=== PATIENT | male | born 1945 | race Caucasian/White ===

== ENCOUNTER → 2018-04-12 | Outpatient (CLI) | payer MEDICARE ==
--- NOTE | 2018-04-13 07:33 | MR ---
EXAMINATION TYPE: MR shoulder LT wo con DATE OF EXAM: 04/12/2018 COMPARISON: None HISTORY: 73-year-old male shoulder pain, limited ROM x 2 years TECHNIQUE: Multiplanar, multisequence imaging of the left shoulder is performed without contrast. FINDINGS: Split tears within the extracapsular portion of the long head biceps tendon with tenosynovitis. Intra capsular portion is not seen and is suspected to be torn. The subscapularis tendon is very diminutive with some intact inferior fibers seen. A sizable tear is suspected with mild fatty streaks within the muscle belly and tracking fluid along the myotendinous j unction. Severe degenerative joint space narrowing and marginal spurring with capsular hypertrophy at the acro mial clavicular joint. There is impingement on the underlying myotendinous junction of the supraspina tus. There is diffuse heterogeneity and thickening of the supraspinatus and infraspinatus tendons with a s hallow anterior bursal sided tear of the supraspinatus measuring 1 cm long and 1.2 cm AP. Areas of in trasubstance tearing within the infraspinatus tendon. No high-grade partial or full-thickness tear. No atrophy of either supraspinatus or infraspinatus muscle bellies. There is moderate fluid within the subacromial/subdeltoid bursa especially below the distal clavicle. There is a calcific focus measuring 8 mm along the anterior subdeltoid bursa, coronal image 8. Moderate joint effusion with degenerative spurring in mild irregular cartilage loss. The superior labrum is diffusely degenerative and torn. No Hill-Sachs deformity or os acromiale. No suspicious bone marrow replacement. IMPRESSION: 1. Marked diffuse rotator cuff tendinosis. Suspect that the majority of the subscapularis tendon is t orn. Mild fatty infiltration of its muscle belly. 2. Shallow bursal sided tear measuring 1.0 x 1.2 cm of the far anterior supraspinatus tendon. Additio nal areas of intrasubstance tearing within the infraspinatus tendon. No high-grade partial or full-th ickness tear. 3. An 8 mm calcification in the anterior subdeltoid bursa with moderate bursitis. Correlate for possi ble calcific bursitis. 4. The intracapsular portion of the long head biceps tendon is not seen and is likely torn. Some of t he extracapsular portion is seen with split tears and associated tenosynovitis. 5. Severe AC joint OA with impingement onto the underlying cuff. 6. Diffusely degenerative and torn superior labrum with mild GH joint OA.
== END | disposition home or self-care (01) ==
LOC: RADMRIMAIN 12:23
PROVIDERS: ATTEND Orthopaedic Surgery
DX: M67.814 Other specified disorders of tendon, left shoulder (principal); M75.102 Unspecified rotator cuff tear or rupture of left shoulder, not specified as traumatic; M19.012 Primary osteoarthritis, left shoulder; M25.812 Other specified joint disorders, left shoulder; M65.812 Other synovitis and tenosynovitis, left shoulder; S43.402A Unspecified sprain of left shoulder joint, initial encounter

== ENCOUNTER → 2018-04-12 | Outpatient (CLI) | payer MEDICARE ==
[2018-04-12 14:06] LABS: HGB 13.6 gm/dL (13.0-17.5); MCH 31.8 pg (25.0-35.0); MCHC 33.2 g/dL (31.0-37.0); MCV 95.6 fL (80.0-100.0); Mean Platelet Volume 6.7; Platelet Count 173 k/uL (150-450); RBC 4.29 m/uL (4.30-5.90); RDW 13.9 % (11.5-15.5); WBC 8.2 k/uL (3.8-10.6)
[2018-04-12 14:20] LABS: Potassium 5.8 mmol/L (3.5-5.1)
== END ==
LOC: LABMAIN 12:35
PROVIDERS: ATTEND Internal Medicine Interventional Cardiology
DX: Z01.812 Encounter for preprocedural laboratory examination (principal); I10 Essential (primary) hypertension; E78.1 Pure hyperglyceridemia; I25.10 Atherosclerotic heart disease of native coronary artery without angina pectoris
CPT/HCPCS: 36415; 80051; 82565; 84520; 85027

== ENCOUNTER → 2018-04-16 | Outpatient (CLI) | payer MEDICARE ==
[2018-04-16 18:01] LABS: Anion Gap 1.9 mmol/L (4.00-12.00); Carbon Dioxide 30.1 mmol/L (21.6-31.8); Potassium 5.1 mmol/L (3.5-5.5)
== END | disposition home or self-care (01) ==
LOC: LABWHC1 09:16
PROVIDERS: ATTEND Internal Medicine Interventional Cardiology
DX: E87.5 Hyperkalemia (principal)
CPT/HCPCS: 36415; 80051; 82565; 84520

== ENCOUNTER → 2018-10-07 | Outpatient (CLI) | payer MEDICARE ==
[2018-10-07 13:29] LABS: HCT 43.9 % (39.0-53.0); HGB 14.3 gm/dL (13.0-17.5); MCH 30.8 pg (25.0-35.0); MCHC 32.6 g/dL (31.0-37.0); MCV 94.5 fL (80.0-100.0); Mean Platelet Volume 6.7; Platelet Count 179 k/uL (150-450); RBC 4.64 m/uL (4.30-5.90); RDW 13.5 % (11.5-15.5); WBC 7.9 k/uL (3.8-10.6)
== END ==
LOC: LABWHC1 12:33
PROVIDERS: ATTEND Internal Medicine Interventional Cardiology
DX: Z01.812 Encounter for preprocedural laboratory examination (principal); I10 Essential (primary) hypertension; I25.118 Atherosclerotic heart disease of native coronary artery with other forms of angina pectoris
CPT/HCPCS: 36415; 80051; 82565; 84520; 85027

== ENCOUNTER 2018-10-13 10:47 | Day surgery (SDC) | payer MEDICARE ==
[~2018-10-13 10:47] MED LIST: ALPRAZolam 0.25 MG TAB PO PRN; ALPRAZolam 0.5 MG TAB PO PRN; ASPIRIN 325 MG TAB PO ONE; ATORVASTATIN 80 MG TAB PO ONE; NITROGLYCERIN SL TABS 0.4 MG TAB SUBLINGUAL PRN; SODIUM CHLORIDE 0.9% 1,000 ML in EMPTY BAG 1 BAG IV ONE
[2018-10-13 11:53] LABS: INR 1.3 (<1.2)
[2018-10-13] MEDS ORDERED: LIDOCAINE 1% INJ 10MG/ML (20 ML MDV) ONE (16:32)
[2018-10-13] MEDS ORDERED: HEPARIN SODIUM 1,000 UN/ML (10ML VL) ONE (16:33)
[2018-10-13] MEDS ORDERED: MIDAZOLAM (PF) 2 MG/2 ML VIAL IV ONE ×2 (17:27→17:33)
[2018-10-13] MEDS ORDERED: LIDOCAINE 1% INJ 10MG/ML (20 ML MDV) SQ ONE (17:31)
[2018-10-13] MEDS ORDERED: BIVALIRUDIN BOLUS 250 MG/50 ML IV ONE (17:51)
[2018-10-13] MEDS ORDERED: BIVALIRUDIN 250 MG in SODIUM CHLORIDE 0.9% 50 ML IV ONE (17:52)
[2018-10-13] MEDS ORDERED: ADENOSINE 180 MG in SODIUM CHLORIDE 0.9% 30 ML IVP ONE (17:56)
[2018-10-13] MEDS ORDERED: IOPAMIDOL-370 50ML BTL INJ ONE (18:02)
[2018-10-13] MEDS ORDERED: IOPAMIDOL-370 100ML BTL INJ ONE ×2 (18:02)
[2018-10-13] MEDS ORDERED: RX INFO: IV CONTRAST WAS GIVEN 1 EACH MISC MISCELLANE PRN (18:13)
[2018-10-13] MEDS ORDERED: SODIUM CHLORIDE 0.9% 1,000 ML IV SCH (18:15)
--- NOTE | 2018-10-13 18:48 | PTCA ---
PERCUTANEOUSTRANS CORORONARY ANGIOGRAPHY DATE OF SERVICE: October 13, 2018 PERFORMING PHYSICIAN: Juve Silva MD, hand brim ironer. PROCEDURE PERFORMED: 1. Selective right and left coronary angiogram. 2. Left heart catheterization. 3. Fractional flow reserve FFR of the left circumflex. INDICATION: This is a pleasant 73-year-old gentleman with history of coronary artery disease and prior stenting of the left anterior descending artery,was experiencing symptoms of chest discomfort. He is known to have intermediate disease involving the left circumflex. He was brought today to undergo a heart catheterization and FFR of the left circumflex. APPROACH: Right common femoral artery. COMPLICATION: None. LEVEL OF SEDATION: Moderate with sedation length of 34 minutes. PROCEDURE DESCRIPTION: After obtaining an informed consent, the patient was brought to cardiac lift slab operator. The right common femoral artery was cannulated using micropuncture technique and a micropuncture wire passed easily then I placed a 6-Polish sheath in the right common femoral artery. After that I did selective right and left coronary angiogram using JR4 and JL4 catheters. Left heart catheterization was performed using 6-Polish pigtail catheter. I did after that fractional flow reserve FFR of the left circumflex please see a separate paragraph for that. SELECTIVE CORONARY ANGIOGRAM: 1. The right coronary artery is a large caliber vessel. It is a dominant vessel and appeared to be angiographically normal. It distally bifurcates into PDA and PLV branches both appeared to be angiographically normal. 2. The left main is a large caliber vessel with mild disease only, appeared to be in the range of 20%-30%. It bifurcates into left circumflex, ramus intermedius, and left anterior descending artery. 3. The left circumflex is a large caliber vessel. It is a codominant vessel with the proximal circumflex and mid circumflex are angiographically normal. The circumflex distally bifurcates into PDA and PLV branches. The PDA branch of the left circ has a lesion appeared to be in the range of 60%. I did FFR that came into be nonischemic at 0.93. 4. The LAD. The LAD in the proximal portion is stented and the stent is patent. The mid LAD is normal. The LAD distally appeared to be normal. The LAD gives rise into a large diagonal branch which seems to be angiographically normal. HEMODYNAMICS: The left ventricular end-diastolic pressure was 12 mmHg without gradient across the aortic valve. FFR of the left circumflex: Anticoagulation was initiated using Angiomax. After zeroing the Doppler wire and equalizing between the Doppler wire and the guiding catheter which was JL4 guide, I did FFR per IV adenosine infusion and the FFR came to be at 0.94. CONCLUSION: 1. Intermediate to severe disease involving the left circumflex. FFR was applied and carried to be nonischemic at 0.94. 2. Patent stent in the proximal left anterior descending artery. POSTPROCEDURE MANAGEMENT: Medical treatment and follow up with the patient. MMODL / IJN: [id number] /
[2018-10-13 19:03] VITALS: BMI 44.6
[2018-10-13] MEDS ORDERED: ACETAMINOPHEN TAB 325 MG TAB PO PRN (20:10)
[2018-10-13] MEDS ORDERED: FLUoxetine HCL 10 MG CAP PO PRN (20:26)
[2018-10-13] MEDS ORDERED: HYDROcodone/APAP 10-325MG 1 EACH TAB PO PRN (20:26)
[2018-10-13] MEDS ORDERED: NITROGLYCERIN SL TABS 0.4 MG TAB SUBLINGUAL PRN (20:26)
[2018-10-13] MEDS ORDERED: WARFARIN 5 MG TAB PO SCH (20:30)
[2018-10-13] MEDS ORDERED: METOPROLOL SUCCINATE (ER) 25 MG TAB.ER.24H PO SCH (21:00)
[2018-10-13] MEDS ORDERED: TIMOLOL 0.5% OPHTH DROPS 5 ML BTL BOTH EYES SCH (21:00)
[2018-10-13] MEDS ORDERED: ATORVASTATIN 20 MG TAB PO SCH (21:00)
[2018-10-13] MEDS ORDERED: [UNRECOGNIZED DRUG - OTHER] PO SCH (21:00)
[2018-10-13] MEDS ORDERED: BRIMONIDINE TARTRATE 0.2% DROPS 5 ML BTL BOTH EYES SCH (21:00)
[2018-10-14 07:49] VITALS: BP 128/74; PULSE 53; RESP 18; TEMP 98.2
[2018-10-14] MEDS ORDERED: MELOXICAM 7.5 MG TAB PO SCH (09:00)
[2018-10-14] MEDS ORDERED: OMEGA 3 1000MG PO SCH (09:00)
[2018-10-14] MEDS ORDERED: ASCORBIC ACID 500 MG TAB PO SCH (09:00)
[2018-10-14] MEDS ORDERED: LISINOPRIL 20 MG TAB PO SCH (09:00)
[2018-10-14] MEDS ORDERED: FLUoxetine HCL 20 MG CAP PO SCH (09:00)
[2018-10-14] MEDS ORDERED: VITAMIN B COMPLEX PO SCH (09:00)
[2018-10-14] MEDS ORDERED: ISOSORBIDE MONONITRATE ER 60 MG TAB.ER.24H PO SCH (09:00)
[2018-10-14] MEDS ORDERED: CALCIUM CARB-VIT D 250MG-125UN 1 EACH TAB PO SCH (09:00)
[2018-10-14] MEDS ORDERED: TURMERIC PO SCH (09:00)
[2018-10-14] MEDS ORDERED: MULTIVITAMINS, THERA 1 EACH TAB PO SCH (09:00)
[2018-10-14] MEDS ORDERED: ASPIRIN 81 MG PO SCH (09:00)
--- NOTE | 2018-10-15 18:05 | DS ---
DISCHARGE SUMMARY ADMISSION DATE: October 13, 2018. DISCHARGE DATE: October 14, 2018 BRIEF HISTORY: This is a pleasant 73-year-old gentleman who was experiencing chest discomfort and underwent a heart catheterization and that revealed intermediate disease involving the left circumflex where an FFR was performed and came into be nonischemic. I kept the patient overnight for observation. He was discharged home the following day. He was doing good and he was asymptomatic. MMODL / IJN: [id number] /
[2018-10-19] MEDS ORDERED: WARFARIN 2.5 MG TAB PO SCH (18:00)
== END 2018-10-14 10:15 | disposition home or self-care (01) ==
LOC: CATHCVL 10:47 → 1SOBS 18:13 → CATHCVL 10-14 10:15
PROVIDERS: ATTEND Internal Medicine Interventional Cardiology
DX: I25.110 Atherosclerotic heart disease of native coronary artery with unstable angina pectoris (principal); I10 Essential (primary) hypertension; E78.5 Hyperlipidemia, unspecified; E78.00 Pure hypercholesterolemia, unspecified; E66.01 Morbid (severe) obesity due to excess calories; Z68.42 Body mass index [BMI] 45.0-49.9, adult; Z72.0 Tobacco use; Z86.718 Personal history of other venous thrombosis and embolism; Z79.899 Other long term (current) drug therapy; Z95.5 Presence of coronary angioplasty implant and graft; Z79.82 Long term (current) use of aspirin; Z79.01 Long term (current) use of anticoagulants; Z79.1 Long term (current) use of non-steroidal anti-inflammatories (NSAID)
CPT/HCPCS: 93571; 93458; 85610; C1760; C1887; C1894; C1769 ×2; J2001; J0583; J0153; Q9967 ×2; J2250

== ENCOUNTER → 2019-01-07 | Outpatient (CLI) | payer MEDICARE ==
[2019-01-07 13:00] LABS: African American GFR (CKD) >90 (>60 ml/min/1.73 sqM); Blood Urea Nitrogen 19 mg/dL (9-20)
--- NOTE | 2019-01-07 14:26 | CT ---
EXAMINATION TYPE: CT abdomen pelvis w con DATE OF EXAM: 01/07/2019 COMPARISON: None HISTORY: Hematuria CONTRAST: CT scan of the abdomen and pelvis is performed with Oral Contrast and with IV Contrast, patient injec suyapa with 100 mL of Isovue 300. FINDINGS: LUNG BASES-: No visible nodule. No infiltrate. LIVER/GB: No calcified gallstones. No space occupying hepatic lesion. Biliary tree is of normal ca liber. PANCREAS: No inflammation. No distinct mass. SPLEEN: No splenic enlargement. No lesion seen. ADRENALS: No nodule. No thickening. KIDNEYS/BLADDER: No hydronephrosis. No nephrolithiasis. No distinct renal mass. Urinary bladder g rossly unremarkable. BOWEL: Normal appendix. Normal bowel caliber. No inflammation. GENITAL ORGANS: No gross abnormality. LYMPH NODES: No greater than 1cm abdominal or pelvic lymph nodes are appreciated. AORTA: No significant abnormality. OSSEOUS STRUCTURES: Severe multilevel degenerative disc space narrowing with vacuum disc noted. OTHER: No significant additional abnormality is seen. IVC filter is noted to be in place. IMPRESSION: 1. No significant abnormality to account for the patient's symptoms of hematuria. Correlate clinicall y.
== END | disposition home or self-care (01) ==
LOC: RADCTMAIN 12:02
PROVIDERS: ATTEND Urology
DX: R31.9 Hematuria, unspecified (principal)
CPT/HCPCS: 82565; 84520; 74177; 36415; Q9967

== ENCOUNTER → 2021-04-26 | Outpatient (CLI) | payer MEDICARE ==
[2021-04-26 10:14] LABS: Basophils # (A) 0.1 k/uL (0-0.2); Basophils % (A) 1 %; Eosinophils # (A) 0.3 k/uL (0-0.7); Eosinophils % (A) 4 %; HCT 44.6 % (39.0-53.0); HGB 14.8 gm/dL (13.0-17.5); Lymphocytes # (A) 2.1 k/uL (1.0-4.8); Lymphocytes % (A) 27 %; MCH 32.2 pg (25.0-35.0); MCHC 33.1 g/dL (31.0-37.0); MCV 97.3 fL (80.0-100.0); Mean Platelet Volume 7.4; Monocytes # (A) 0.5 k/uL (0-1.0); Monocytes % (A) 7 %; Neutrophils # (A) 4.5 k/uL (1.3-7.7); Neutrophils % (A) 58 %; Platelet Count 165 k/uL (150-450); RBC 4.59 m/uL (4.30-5.90); RDW 12.5 % (11.5-15.5); WBC 7.7 k/uL (3.8-10.6)
[2021-04-26 10:24] LABS: INR 2.9 (<1.2); Partial Thromboplastin Time 35.2 sec (22.0-30.0); Prothrombin Time 27.7 sec (9.0-12.0)
[2021-04-26 10:30] LABS: ALT 25 U/L (4-49); AST 36 U/L (17-59); African American GFR (CKD) >90 (>60 ml/min/1.73 sqM); Albumin 3.9 g/dL (3.5-5.0); Alkaline Phosphatase 71 U/L (38-126); Anion Gap 5 mmol/L; Blood Urea Nitrogen 20 mg/dL (9-20); Calcium 9.7 mg/dL (8.4-10.2); Carbon Dioxide 28 mmol/L (22-30); Chloride 104 mmol/L (98-107); Glucose 104 mg/dL (74-99); Non-African American GFR(CKD) 78 (>60 ml/min/1.73 sqM); Potassium 5.6 mmol/L (3.5-5.1); Sodium 137 mmol/L (137-145); Total Bilirubin 0.7 mg/dL (0.2-1.3); Total Protein 6.6 g/dL (6.3-8.2)
[2021-04-26 10:34] LABS: Appearance,Urine Clear (Clear); Bilirubin,Urine Negative (Negative); Blood,Urine Negative (Negative); Color,Urine Yellow; Glucose,Urine (UA) Negative (Negative); Ketones,Urine Negative (Negative); Leukocyte Esterase,Urine Negative (Negative); Nitrite,Urine Negative (Negative); Protein,Urine Negative (Negative); Specific Gravity,Urine 1.025 (1.001-1.035)
== END | disposition home or self-care (01) ==
LOC: LABPAT 09:37
PROVIDERS: ATTEND Orthopaedic Surgery
DX: Z01.812 Encounter for preprocedural laboratory examination (principal)
CPT/HCPCS: 80053; 81003; 85025; 85610; 85730; 87070

== ENCOUNTER 2021-05-22 07:41 | Observation (INO) | payer MEDICARE ==
[2021-05-15 13:07] VITALS: BMI 43.9
[~2021-05-22 07:41] MED LIST changes: +ACETAMINOPHEN TAB 500 MG TAB PO PRN; -ALPRAZolam 0.25 MG TAB PO PRN; -ALPRAZolam 0.5 MG TAB PO PRN; -ASPIRIN 325 MG TAB PO ONE; -ATORVASTATIN 80 MG TAB PO ONE; +DEXAMETHASONE SOD PHOSPHATE 4 MG/ML 1 ML VIAL IV ONE; +GABAPENTIN 300 MG CAP PO PRN; +LIDOCAINE 1% (10MG/ML) FOR IV START INTRADERMA PRN; +MIDAZOLAM 2 MG/2 ML VIAL IV PRN; -NITROGLYCERIN SL TABS 0.4 MG TAB SUBLINGUAL PRN; +ONDANSETRON 4 MG/2 ML VIAL IVP ONE; -SODIUM CHLORIDE 0.9% 1,000 ML in EMPTY BAG 1 BAG IV ONE; +TRANEXAMIC ACID 1,000 MG in SODIUM CHLORIDE 0.9% 100 ML IVPB PRN; +ceFAZolin 3 GM in SODIUM CHLORIDE 0.9% 100 ML IVPB PRN
[2021-05-22] MEDS: LACTATED RINGERS 1,000 ML IV SCH (08:08)
[2021-05-22] MEDS ORDERED: HYDROmorphone 0.5 MG/0.5 ML SYRINGE IVP PRN ×2 (08:36)
[2021-05-22] MEDS ORDERED: HYDROmorphone 0.2 MG/1 ML SYRINGE IVP PRN (08:36)
[2021-05-22] MEDS ORDERED: ONDANSETRON 4 MG/2 ML VIAL IVP PRN (08:36)
[2021-05-22] MEDS ORDERED: NA PHOS,M-B/NA PHOS,DI-BA 133 ML ENEMA RECTAL PRN (08:36)
[2021-05-22] MEDS ORDERED: MAGNESIUM HYDROXIDE 2,400 MG/10 ML CUP PO PRN (08:36)
[2021-05-22] MEDS ORDERED: NALOXONE 0.4 MG/ML 1 ML VIAL IV PRN (08:36)
[2021-05-22] MEDS ORDERED: bisacodyL 10 MG SUPP RECTAL PRN (08:36)
[2021-05-22] MEDS ORDERED: .fentaNYL (PF) 50 MCG/ML 2 ML AMP IVP ONE (08:40)
[2021-05-22] MEDS ORDERED: MIDAZOLAM 2 MG/2 ML VIAL IVP ONE (08:40)
[2021-05-22] MEDS ORDERED: SUCCINYLCHOLINE CHLORIDE 100 MG/5 ML SYR IV ONE (09:01)
[2021-05-22] MEDS ORDERED: ROPIVACAINE 5 MG/ML 30 ML VIAL ONE (09:01)
[2021-05-22] MEDS ORDERED: PROPOFOL 10 MG/ML 20 ML VIAL IV ONE (09:01)
[2021-05-22] MEDS ORDERED: LIDOCAINE 1% INJ 10MG/ML (20 ML MDV) ONE (09:01)
[2021-05-22] MEDS ORDERED: TRANEXAMIC ACID 1,000 MG/10 ML VIAL ONE (09:01)
[2021-05-22] MEDS ORDERED: ePHEDrine 50 MG/ML 1 ML AMP ONE (09:01)
[2021-05-22] MEDS ORDERED: SODIUM CHLORIDE 0.9% (PF) 10 ML VIAL ONE (09:01)
[2021-05-22] MEDS ORDERED: MIDAZOLAM 2 MG/2 ML VIAL ONE (09:01)
[2021-05-22] MEDS ORDERED: SODIUM CHLORIDE 0.9% 100 ML BAG ONE (09:01)
[2021-05-22] MEDS ORDERED: .fentaNYL (PF) 50 MCG/ML 2 ML AMP ONE (09:01)
[2021-05-22] MEDS ORDERED: ceFAZolin 1,000 MG in SODIUM CHLORIDE 0.9% 1,000 ML IRRIGATION ONE (09:06)
--- NOTE | 2021-05-22 09:49 | P.ANPRN ---
Procedure Note - Anesthesia - Nerve Block Performed Right Adductor Canal Time Out Performed: Yes (08:39) Date of Procedure: 05/22/21 Procedure Start Time: 39 Procedure Stop Time: : Location of Patient: PreOp Indication: Acute Post-Operative Pain, Requested by Surgeon (Dr Monique Meeks) Sedation Type: Sedate with meaningful contact maintained Preparation: Sterile Prep, Sterile Dressing Position: Supine Catheter: Indwelling Needle Types: Pajunk Needle Gauge: 21 Ultrasound used to visualize needle placement: Yes Ultrasound used to observe medication spread: Yes Injectate: 0.5% Ropivacaine (see comment for volume) (15cc) Blood Aspirated: No Pain Paresthesia on Injection Noted: No Resistance on Injection: Normal Image Stored and Saved: Yes Events: Uneventful and Well Tolerated
--- NOTE | 2021-05-22 09:50 | P.ANPRN ---
Procedure Note - Anesthesia - Nerve Block Performed Right iPack Time Out Performed: Yes Date of Procedure: 05/22/21 Procedure Start Time: 08:52 Procedure Stop Time: 09:00 Location of Patient: PreOp Indication: Acute Post-Operative Pain, Requested by Surgeon (Dr Monique Meeks) Sedation Type: Sedate with meaningful contact maintained Preparation: Sterile Prep Position: Supine Catheter: None Needle Types: Pajunk Needle Gauge: 21 Ultrasound used to visualize needle placement: Yes Ultrasound used to observe medication spread: Yes Injectate: 0.5% Ropivacaine (see comment for volume) (15cc + 5 cc PF Normal saline) Blood Aspirated: No Pain Paresthesia on Injection Noted: No Resistance on Injection: Normal Image Stored and Saved: Yes Events: Uneventful and Well Tolerated
[2021-05-22] MEDS ORDERED: LACTATED RINGERS 500 ML IV ONE (09:55)
--- NOTE | 2021-05-22 10:58 | P.OP ---
Date of Procedure: 05/22/21 Preoperative Diagnosis: Severe Osteoarthritis right knee Postoperative Diagnosis: Severe osteoarthritis right knee Procedure(s) Performed: Right total knee arthroplasty Implants: Guard[employer]hew Cruciate Retaining Journey II CR Oxinium Femoral Component size 7, right Guard[employer] Journey Nonporous Tibial Baseplate size 6, right [employer] Journey II DEEP DISHED, XLPE Articular Insert, 9 mm, size 5-6 [employer]hew Mylene II Resurfacing Patellar Component, Oval, 35 mm All components were cemented using Palacose R bone cement. The articulation is Oxinium on polyethylene. Anesthesia: GETA Surgeon: Alan Meeks Global Human Resources Director #1: Mallory Mac Estimated Blood Loss (ml): 100 Pathology: other (Bone and cartilage) Condition: stable Disposition: PACU Indications for Procedure: After failure of conservative treatment we discussed the surgical and nonsurgical treatment options at length. Patient wishes to proceed with a total knee arthroplasty. Complications specific to this procedure were discussed at length, including but not limited to infection, bleeding, stiffness, and nerve injury. Covid-19 was also discussed at length with the patient, and they are aware of the current policies and procedures. The patient was given the option of delaying surgery, but they elect to proceed knowing these risks. Patient is aware of all these complications and informed consent was obtained Operative Findings: The operative findings are consistent with severe osteoarthritis of the right knee Description of Procedure: Patient was seen in the preoperative area and the consent was reviewed and the operative site was marked with a skin marker. The patient verified the procedure and the operative site. An adductor canal pain catheter and an iPACK block was placed by anesthesia in the preoperative area. The patient was then brought to the operating room and given preoperative antibiotics intravenously. A gram of transexamic acid was given intravenously. A general anesthetic was administered by the anesthesia department. A tourniquet was placed on the upper thigh and the lower extremity was prepped with chlorhexidine and draped in usual sterile fashion. A universal timeout was then performed which confirmed the patient's name, surgical site, ALLERGIES, and consent. The lower extremity was then exsanguinated and tourniquet was inflated to 250 mmHg. A standard anterior midline approach to the knee was performed. The skin and subcutaneous tissue were sharply dissected down to the patellar tendon. A medial parapatellar arthrotomy was then performed. The knee was then extended, the patellar was everted, and the knee was again flexed. The infra-patellar fat pad was removed in order to enhance exposure. The anterior horns of both menisci were excised, and a release was performed to the posterior medial aspect of the knee. On gross visual inspection, there was complete loss of articular cartilage in the medial and patellofemoral joint spaces. There was also significant cartilage damage in the lateral compartment. There were multiple periarticular osteophytes globally about the knee which were then removed with a Ronguer. The femoral canal was then opened with the 9.5 mm intramedullary drill. The 8 mm intramedullary ag was then inserted into the femoral canal with the distal femoral cutting guide set for 5 of valgus. The distal femoral cutting block was then pinned in place. The intramedullary ag was then removed, and the distal femur was then cut. The cutting block was then removed and the cut was checked for symmetry. The resected bone was then measured to confirm the appropriate distal femoral resection. Next, the sizing guide was then placed and set for 3 external rotation based off of the epicondylar axis and Whitesides line. Pins were then placed and the drill holes, and the femur was sized with the sizing stylus. The pins were then removed, and the sizing guide was then removed. The spikes of the femoral block was then placed into the predrilled holes, and malleted into place. Two 45 mm pins were then placed into the fixation holes on the cutting block. An priyanka wing was then used to ensure there would be no notching with the anterior cut. The anterior condyles were cut without notching. The anterior chord cut was then performed, followed by the posterior cut, posterior chamfer cut, and the anterior chamfer cut. The collateral ligaments were protected during the entire process. The cutting block was then removed. Any remaining bone and osteophytes were removed from the femur with a Rominger. The femoral canal was plugged with autologous bone. Attention was then directed to the tibia. The remaining ACL was removed with a Ronguer, and the tibia was then gently subluxed forward with a large bent knee retractor. Any remaining menisci were excised. The posterior lateral corner was cauterized in order to coagulate the lateral geniculate artery. The extra medullary tibial cutting guide was then placed, set for the appropriate rotation, slope, and depth of resection. The proximal tibia cutting guide was then pinned in place. Proximal tibia was then cut and sized. The femoral trial was placed. A narrow saw blade was then used to remove the anterior intracondylar femoral bone. The CR notch trial was then placed. The tibial trial was placed with the appropriate-sized insert. The knee was able to fully extend and flex to 130 and was stable throughout all range of motion. The knee was then extended and the patella was everted. Patella was then measured, and then using an osteotomy guide, the patella was cut at the appropriate level. The patella was then measured and drilled and the patella trial was then placed. The knee was then taken through range of motion with the patella trial and the patella tracked normally using the no thumbs technique.. The knee was then extended patella trial was then removed and the patella was everted. Knee was then flexed and lug holes were drilled through the femoral trial and the femoral trial was then removed. The tibial was then re-exposed, and the tibial broach guide was then pinned in place after it was set for the appropriate rotation to allow for the most coverage without overhang. The tibia was then reamed and broached. The cut surfaces of bone were then irrigated with pulsatile lavage. The knee was also irrigated with Irrisept solution. The components were then opened, the cement was mixed, and the components were then cemented in place. The cement was allowed to harden with the knee in full extension. After the cemented hardened. The tourniquet was released, and hemostasis was obtained. A second gram of transexamic acid was given intravenously. The knee was again irrigated. The knee was again taken through range of motion and found to be stable throughout all range of motion of 0-130, and the patella tracked normally. The fascia was then closed with 0 Vicryl followed by #2 strata fix suture. The subcutaneous tissue was closed with 3-0 Vicryl and 3-0 strata fix. Exofin glue was used for the skin and placed with the knee in flexion. After the glue had dried, and Optafoam silver impregnated dressing was applied. The patient was then transferred to recovery room in stable condition. The human services assistant IRISH Palmer was required due the complexity surgery and the need for a skilled surgical orderly. She assisted in positioning, draping, retraction, and closure of the wound.
[2021-05-22] MEDS ORDERED: ROPIVACAINE 0.2%-NS ON-Q PUMP 2 MG/ML EACH MISCELLANE ONE ×2 (11:04)
[2021-05-22] MEDS: HYDROmorphone 0.5 MG/0.5 ML SYRINGE IVP PRN ×4 (11:04→14:57)
[2021-05-22] MEDS ORDERED: diphenhydrAMINE 50 MG/ML 1 ML VIAL ONE (11:21)
[2021-05-22] MEDS ORDERED: diphenhydrAMINE 50 MG/ML 1 ML VIAL IVP ONE (11:22)
--- NOTE | 2021-05-22 11:34 | XR ---
EXAMINATION TYPE: XR knee limited RT DATE OF EXAM: 05/22/2021 CLINICAL HISTORY: Postoperative evaluation Two views of the right knee are submitted. Identified are changes of total knee arthroplasty with femoral and tibial components appearing well seated. Postsurgical soft tissue changes are noted. Alignment is anatomic.
[2021-05-22] MEDS: HYDROcodone/APAP 7.5-325MG 1 EACH TAB PO PRN ×2 (15:48→19:35)
[2021-05-22] MEDS: ceFAZolin 3 GM in SODIUM CHLORIDE 0.9% 100 ML IVPB SCH (16:39)
[2021-05-22] MEDS: SODIUM CHLORIDE 0.9% 1,000 ML IV SCH (17:22)
[2021-05-22] MEDS ORDERED: WARFARIN 5 MG TAB PO ONE (18:00)
[2021-05-22] MEDS: SENNOSIDES-DOCUSATE SODIUM 1 EACH TAB PO SCH (20:39)
[2021-05-23] MEDS: SODIUM CHLORIDE 0.9% 1,000 ML IV SCH ×2 (01:11→14:36)
[2021-05-23] MEDS: ceFAZolin 3 GM in SODIUM CHLORIDE 0.9% 100 ML IVPB SCH (01:13)
[2021-05-23] MEDS: HYDROcodone/APAP 7.5-325MG 1 EACH TAB PO PRN ×5 (01:19→20:51)
--- NOTE | 2021-05-23 07:10 | P.PN ---
Progress Note - Text The patient is status post right adductor canal catheter placement. The catheter was placed for postoperative pain control, status post total right knee arthroplasty. Ropivacaine 0.2% is infusing at[ 8] mLs per hour. The patient has no complaints of[ right ] lower extremity numbness or weakness. Patient's VAS score is 1-2-10. Assessment: Patient's adductor canal catheter is in place and working appropriately. Plan: continue infusion and adjust it as needed.
[2021-05-23] MEDS: LACTATED RINGERS 1,000 ML IV SCH (07:23)
[2021-05-23] MEDS ORDERED: KETOROLAC 30 MG/ML 1 ML VIAL IVP STA (08:43)
--- NOTE | 2021-05-23 08:48 | P.PN ---
Subjective Progress Note Date: 05/23/21 This is a 76-year-old male who is status post right total knee arthroplasty. This is postoperative day #1 and patient is seen and evaluated at bedside with Dr. Alan Meeks. Patient states that he has walked to the bathroom and back, but has not worked with physical therapy yet. Patient states that he has been uncomfortable today. Otherwise, patient denies any new complaints. Objective - Vital Signs Vital signs: Vital Signs Temp 98.3 F 05/23/21 08:00 Pulse 81 05/23/21 08:00 Resp 16 05/23/21 08:00 BP 103/65 05/23/21 08:00 Pulse Ox 96 05/23/21 08:00 Intake & Output 05/22/21 05/23/21 05/23/21 18:59 06:59 18:59 Intake Total 2341 Output Total 400 640 Balance 1941 -640 Weight 145.9 kg Intake: IV 1801 Oral 540 Output: Urine 300 640 Estimated Blood Loss 100 Other: # Voids 1 4 # Bowel Movements 0 - Exam Vital signs are stable. Patient is in no acute distress and is alert and oriented 3. Calf is soft and nontender to palpation. Dressing is clean, dry, and intact. Patient has full foot and ankle motion without pain or difficulty. Sensation intact. Neurovascular status and circulatory status are intact. Assessment and Plan (1) Osteoarthritis of right knee Current Visit: Yes Status: Acute Code(s): M17.11 - UNILATERAL PRIMARY OSTEOARTHRITIS, RIGHT KNEE SNOMED Code(s): 098357710337505 (2) S/P total knee arthroplasty Current Visit: Yes Status: Acute Code(s): Z96.659 - PRESENCE OF UNSPECIFIED ARTIFICIAL KNEE JOINT SNOMED Code(s): 3960676322991 Plan: #1 Continue with routine postoperative care and pain control, leave dressing in place for seven days. #2 Anticoagulation with Coumadin. #3 Physical therapy and CPM today. #4 Appreciate input from medicine. #5 Anticipate discharge home with home care later today or tomorrow.
[2021-05-23 09:15] LABS: INR 1.08 (0.90-1.11); Prothrombin Time 11.8 sec (9.9-11.9)
[2021-05-23 09:20] LABS: HCT 35.9 % (39.6-50.0); HGB 11.7 g/dL (13.0-17.0); MCH 31.3 pg (27.0-32.0); MCHC 32.6 g/dL (32.0-37.0); Mean Platelet Volume 10.1 fL (9.5-12.2); Platelet Count 153 X 10*3/uL (140-440); RBC 3.74 X 10*6/uL (4.40-5.60); RDW 13.6 % (11.5-14.5)
[2021-05-23] MEDS: GABAPENTIN 300 MG CAP PO SCH ×2 (09:33→20:51)
[2021-05-23 10:42] LABS: Basophils # (A) 0.02 X 10*3/uL (0.00-0.10); Basophils % (A) 0.1 %; Eosinophils # (A) 0.01 X 10*3/uL (0.04-0.35); Eosinophils % (A) 0.1 %; Lymphocytes # (A) 1.67 X 10*3/uL (0.90-5.00); Lymphocytes % (A) 12.1 %; Monocytes # (A) 1.79 X 10*3/uL (0.20-1.00); Neutrophils # (A) 10.24 X 10*3/uL (1.80-7.70); Neutrophils % (A) 74.2 %
[2021-05-23 10:43] LABS: Acanthocytes 2+
[2021-05-23] MEDS ORDERED: NON FORMULARY DRUG (Brimonidine Tartrate/Timolol [Combigan 0.2%-0.5% Eye Drops] 5 ML Drops BOTH EYES SCH (10:45)
[2021-05-23] MEDS: DOXAZOSIN 1 MG TAB PO SCH (11:50)
[2021-05-23] MEDS: BRIMONIDINE TARTRATE 0.2% DROPS 5 ML BTL BOTH EYES SCH ×2 (11:51→20:53)
[2021-05-23] MEDS: TIMOLOL 0.5% OPHTH DROPS 5 ML BTL BOTH EYES SCH ×2 (11:51→20:53)
[2021-05-23] MEDS: FAMOTIDINE 20 MG TAB PO SCH ×2 (14:34→20:52)
--- NOTE | 2021-05-23 16:47 | P.CONS ---
History of Present Illness - Reason for Consult Consult date: 05/23/21 Medical management Requesting physician: Alan Meeks - Chief Complaint Right knee surgery - History of Present Illness This is a 76-year-old patient who follows with Dr. Chilo Linares. Chronic stable medical conditions include CAD with a stent in [address] Allen. Patient recently had a clearance for surgery. Patient had 3 prior DVTs. For which he is on anticoagulation. Hypertension, hyperlipidemia, primary osteoarthritis, BPH. Patient has undergone right total knee arthroplasty. Some pain is present. Somewhat limited in walking because of pain. No nausea vomiting. No chest pain. Did tolerate some breakfast this morning. Sitting up in a chair. Patient's is present. Review of systems: GEN.: Tired EYES: None HEENT: None NECK: None RESPIRATORY: None CARDIOVASCULAR: None GASTROINTESTINAL: Occasional GERD GENITOURINARY: None MUSCULOSKELETAL: Joint pains LYMPHATICS: None HEMATOLOGICAL: None PSYCHIATRY: None NEUROLOGICAL: None Past medical history to include: CAD with stent, DVT 3, hyperlipidemia, hypertension, osteoarthritis, BPH, skin cancer, low,, colon polyps, anxiety depression Social history: Patient smoked a pack a day for 15 years stopped in 2007. Alcohol occasionally. . 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 EYES: Pupils equal. Conjunctiva normal. HEENT: External appearance of nose and ears normal, oral cavity grossly normal. NECK: JVD not raised; masses not palpable. HEART: First and second heart sounds are normal; no edema. LUNGS: Respiratory rate normal; clear to auscultation. ABDOMEN: Soft, nontender, liver spleen not palpable, no masses palpable. PSYCH: Alert and oriented x3; mood and affect normal. MUSCULOSKELETAL: Dressing over the right knee. Evidence of OA. NEUROLOGICAL: Cranial nerves grossly intact; no facial asymmetry, power and sensation grossly intact. LYMPHATICS: No lymph nodes palpable in the axilla and neck INVESTIGATIONS, reviewed in the clinical context: White count 13.8 hemoglobin 11.7 platelets 153 Coronavirus [PCL]: Not detected Previous labs [April 26]: White count 7.7 hemoglobin 14.8 platelets 165 potassium 5.6 creatinine 0.95 Assessment and plan: -Right total knee arthroplasty. Coumadin be resumed. Discussed with Dr. Meeks. Okay to start home dose of Lovenox today. -CAD with stent in 2007 Aspirin 81 mg Toprol-XL 25 mg daily at bedtime -Hyperlipidemia Lipitor 20 mg daily at bedtime -Essential hypertension Toprol-XL 25 mg daily at bedtime. Hold lisinopril as blood pressure running on the lower side -Primary osteoarthritis Pain medications as needed -BPH Cardura 1 mg by mouth daily -Chronic recurrent DVT 3 Resume Lovenox 150 mg subcu every 12 -Morbid obesity BMI 44.9 Weight loss measures and follow-up with PCP -Acute blood loss anemia as expected from surgery Ferrous sulfate 325 mg twice a day -GERD Pepcid 20 mg twice a day Resume home medications. Currently hold off lisinopril as blood pressure in the lower side. Resume Lovenox. Discussed Dr. Meeks. Also had Pepcid. Care was discussed with the patient and the questions answered. Thank you Dr. Meeks Past Medical History Past Medical History: Coronary Artery Disease (CAD), Cancer, Deep Vein Thrombosis (DVT), Eye Disorder, Hyperlipidemia, Hypertension, Myocardial Infarction (ND), Osteoarthritis (OA), Prostate Disorder Additional Past Medical History / Comment(s): skin cancer, glaucoma, DVT x3, colon polyps., BPH., states no blood products-Jehovah Witness. Last Myocardial Infarction Date:: UNKNOWN History of Any Multi-Drug Resistant Organisms: None Reported Past Surgical History: Heart Catheterization With Stent, Orthopedic Surgery Additional Past Surgical History / Comment(s): heart cath with stent (2007), kaity carpal tunnel, MOHS procedure, left eye vitreous hemorrhages, detached retina repair., Trap Ease-permanent vena cava filter (2016). Past Anesthesia/Blood Transfusion Reactions: Motion Sickness Additional Past Anesthesia/Blood Transfusion Reaction / Comm: NO BLOOD PRODUCTS- JEHOVAH WITNESS Date of Last Stent Placement:: 2007 Past Psychological History: Anxiety, Depression Smoking Status: Former smoker Past Alcohol Use History: Occasional Additional Past Alcohol Use History / Comment(s): QUIT SMOKING 2007, SMOKED FOR 15 YRS , HX 1PPD. Past Drug Use History: None Reported Additional Drug Use History / Comment(s): TRIED CBD OIL-NONE CURRENTLY - Past Family History Mother Family Medical History: No Reported History Medications and Allergies Home Medications Medication Instructions Recorded Confirmed Type Ascorbic Acid [Vitamin C] 500 mg PO DAILY 10/08/18 05/15/21 History Aspirin [Adult Low Dose Aspirin EC] 81 mg PO DAILY 10/08/18 05/15/21 History Atorvastatin [Lipitor] 20 mg PO HS 10/08/18 05/15/21 History Brimonidine Tartrate/Timolol 1 drop BOTH EYES BID 10/08/18 05/15/21 History [Combigan 0.2%-0.5% Eye Drops] Glucosam/Vel-Msm1/C/Abdullahi/Bosw 1 each PO BID 10/08/18 05/15/21 History [Nspbpvfxzsv-Heswvbsxqdk-JAN Tb] HYDROcodone/APAP 10-325MG [[place] 1 tab PO Q6HR PRN 10/08/18 05/15/21 History 10-325] Meloxicam [Mobic] 7.5 mg PO DAILY 10/08/18 05/15/21 History Metoprolol Succinate (ER) [Toprol 25 mg PO HS 10/08/18 05/15/21 History XL] Multivitamins, Thera [Multivitamin 1 tab PO DAILY 10/08/18 05/15/21 History (formulary)] Turmeric Root Extract [Turmeric] 580 mg PO BID 10/08/18 05/15/21 History Vitamin B Complex 1 each PO DAILY 10/08/18 05/15/21 History Warfarin [Coumadin] 5 mg PO MOTUWETHFRSA 10/08/18 05/15/21 History lisinopriL 20 mg PO DAILY 10/08/18 05/15/21 History Calcium With Magnesium 1 tab PO DAILY 05/15/21 History Doxazosin [Cardura] 1 mg PO DAILY 05/15/21 05/15/21 History Enoxaparin [Lovenox] 150 mg SQ Q12H 05/15/21 05/15/21 History HYDROcodone/APAP 7.5-325MG [[place] 1 - 2 tab PO Q6H PRN #32 tab 05/22/21 Rx 7.5-325] Ondansetron Odt [Zofran Odt] 1 tab PO Q8HR PRN #10 tab 05/22/21 Rx Sennosides [Senokot] 2 tab PO DAILY PRN #60 tablet 05/22/21 Rx Gabapentin 300 mg PO BID 5 Days #10 cap 05/23/21 Rx Allergies Allergy/AdvReac Type Severity Reaction Status Date / Time No Known Allergies Allergy Verified 05/15/21 12:44 Physical Exam Vitals: Vital Signs Temp Pulse Resp BP BP Pulse Ox 05/23/21 08:00 98.3 F 81 16 103/65 96 05/23/21 01:17 97.4 F L 80 103/62 97 05/22/21 19:06 97.5 F L 72 17 111/63 98 05/22/21 14:55 69 16 116/62 97 05/22/21 14:00 67 16 112/64 97 05/22/21 13:30 71 16 113/61 97 05/22/21 12:55 59 L 16 105/60 99 05/22/21 12:40 61 16 110/68 99 05/22/21 12:25 62 16 111/72 99 05/22/21 12:10 60 16 130/62 99 05/22/21 11:55 64 16 131/63 100 05/22/21 11:40 63 16 124/69 95 05/22/21 11:25 66 18 115/68 100 05/22/21 11:10 64 18 118/65 98 05/22/21 10:58 97 F L 64 12 107/59 99 Intake and Output 05/22/21 05/23/21 05/23/21 22:59 06:59 14:59 Intake Total 540 Output Total 640 Balance 540 -640 Intake: Oral 540 Output: Urine 640 Other: # Voids 1 4 # Bowel Movements 0 Weight 145.9 kg Results CBC & Chem 7: 05/23/21 05:02 Labs: Abnormal Lab Results - Last 24 Hours (Table) 05/23/21 Range/Units 05:02 WBC 13.80 H (4.50-10.00) X 10*3/uL RBC 3.74 L (4.40-5.60) X 10*6/uL Hgb 11.7 L (13.0-17.0) g/dL Hct 35.9 L (39.6-50.0) %
[2021-05-23] MEDS: FERROUS SULFATE 325 MG TAB PO SCH (17:02)
[2021-05-23] MEDS: ASPIRIN 81 MG PO SCH (17:50)
[2021-05-23] MEDS: ENOXAPARIN 150 MG/ML SYRINGE SQ SCH (17:50)
[2021-05-23] MEDS ORDERED: WARFARIN 5 MG TAB PO ONE (18:00)
[2021-05-23 19:37] VITALS: RESP 16
[2021-05-23] MEDS: SENNOSIDES-DOCUSATE SODIUM 1 EACH TAB PO SCH (20:52)
[2021-05-23] MEDS ORDERED: METOPROLOL SUCCINATE (ER) 25 MG TAB.ER.24H PO SCH (21:00)
[2021-05-23] MEDS ORDERED: ATORVASTATIN 20 MG TAB PO SCH (21:00)
[2021-05-24] MEDS: HYDROcodone/APAP 7.5-325MG 1 EACH TAB PO PRN ×3 (00:09→14:08)
[2021-05-24] MEDS: ENOXAPARIN 150 MG/ML SYRINGE SQ SCH (06:26)
[2021-05-24 06:31] LABS: African American GFR (CKD) 72 (>60 ml/min/1.73 sqM); Anion Gap 6 mmol/L; Blood Urea Nitrogen 20 mg/dL (9-20); Calcium 9.1 mg/dL (8.4-10.2); Carbon Dioxide 26 mmol/L (22-30); Chloride 101 mmol/L (98-107); Glucose 107 mg/dL (74-99); Non-African American GFR(CKD) 63 (>60 ml/min/1.73 sqM); Sodium 133 mmol/L (137-145)
--- NOTE | 2021-05-24 07:17 | P.DS ---
Providers Date of admission: 05/23/21 15:13 Expected date of discharge: 05/24/21 Attending physician: Alan Meeks Consults: 05/22/21 08:36 Consult Physician Routine Consulting Provider: Homar Fu Consult Reason/Comments: medical management and anticoagulation Do you want consulting provider notified?: Yes Primary care physician: Chilo Jacobo - Discharge Diagnosis(es) (1) Osteoarthritis of right knee Current Visit: Yes Status: Acute (2) S/P total knee arthroplasty Current Visit: Yes Status: Acute Hospital Course: This is a 76-year-old male who was last seen with complaint of continued right knee pain. The patient has a known history of degenerative arthritis of the right knee and presents to discuss surgical options. After discussion and consideration the patient elects to proceed with total right knee arthroplasty. The patient is seen preoperatively by his primary care physician and cleared for surgery. The patient is admitted to [facility] for total right knee arthroplasty. The procedures performed without complication or sequelae. Patient is doing well postoperatively. Vital signs are stable at discharge. Labs are stable at discharge. the patient is ambulating well with walker with minimal assistance. The patient is discharged to home on postop day #1 pending medical clearance. Please see orders and refer to the [facility] rec for accurate list of medications. Patient Condition at Discharge: Good Plan - Discharge Summary Discharge Rx Participant: No New Discharge Prescriptions: New Ondansetron Odt [Zofran Odt] 1 tab PO Q8HR PRN #10 tab PRN Reason: Nausea Gabapentin 300 mg PO BID 5 Days #10 cap HYDROcodone/APAP 7.5-325MG [[place] 7.5-325] 1 - 2 tab PO Q6H PRN #32 tab PRN Reason: Pain Sennosides [Senokot] 2 tab PO DAILY PRN #60 tablet PRN Reason: Constipation No Action Metoprolol Succinate (ER) [Toprol XL] 25 mg PO HS lisinopriL 20 mg PO DAILY Aspirin [Adult Low Dose Aspirin EC] 81 mg PO DAILY Warfarin [Coumadin] 5 mg PO MOTUWETHFRSA Meloxicam [Mobic] 7.5 mg PO DAILY Turmeric Root Extract [Turmeric] 580 mg PO BID Vitamin B Complex 1 each PO DAILY Multivitamins, Thera [Multivitamin (formulary)] 1 tab PO DAILY Ascorbic Acid [Vitamin C] 500 mg PO DAILY HYDROcodone/APAP 10-325MG [[place] 10-325] 1 tab PO Q6HR PRN PRN Reason: Pain Atorvastatin [Lipitor] 20 mg PO HS Glucosam/Vel-Msm1/C/Abdullahi/Bosw [Vunysycqbkl-Fccerxbuosl-BOF Tb] 1 each PO BID Brimonidine Tartrate/Timolol [Combigan 0.2%-0.5% Eye Drops] 1 drop BOTH EYES BID Enoxaparin [Lovenox] 150 mg SQ Q12H Doxazosin [Cardura] 1 mg PO DAILY Calcium With Magnesium 1 tab PO DAILY Discharge Medication List Ascorbic Acid [Vitamin C] 500 mg PO DAILY 10/08/18 [History] Aspirin [Adult Low Dose Aspirin EC] 81 mg PO DAILY 10/08/18 [History] Atorvastatin [Lipitor] 20 mg PO HS 10/08/18 [History] Brimonidine Tartrate/Timolol [[place] 0.2%-0.5% Eye Drops] 1 drop BOTH EYES BID 10/08/18 [History] Glucosam/Vel-Msm1/C/Abdullahi/Bosw [Omyukxdvndy-Foriqkqpixw-QPL Tb] 1 each PO BID 10/08/18 [History] HYDROcodone/APAP 10-325MG [[place] 10-325] 1 tab PO Q6HR PRN 10/08/18 [History] Meloxicam [Mobic] 7.5 mg PO DAILY 10/08/18 [History] Metoprolol Succinate (ER) [Toprol XL] 25 mg PO HS 10/08/18 [History] Multivitamins, Thera [Multivitamin (formulary)] 1 tab PO DAILY 10/08/18 [History] Turmeric Root Extract [Turmeric] 580 mg PO BID 10/08/18 [History] Vitamin B Complex 1 each PO DAILY 10/08/18 [History] Warfarin [Coumadin] 5 mg PO MOTUWETHFRSA 10/08/18 [History] lisinopriL 20 mg PO DAILY 10/08/18 [History] Calcium With Magnesium 1 tab PO DAILY 05/15/21 [History] Doxazosin [Cardura] 1 mg PO DAILY 05/15/21 [History] Enoxaparin [Lovenox] 150 mg SQ Q12H 05/15/21 [History] HYDROcodone/APAP 7.5-325MG [[place] 7.5-325] 1 - 2 tab PO Q6H PRN #32 tab 05/22/21 [Rx] Ondansetron Odt [Zofran Odt] 1 tab PO Q8HR PRN #10 tab 05/22/21 [Rx] Sennosides [Senokot] 2 tab PO DAILY PRN #60 tablet 05/22/21 [Rx] Gabapentin 300 mg PO BID 5 Days #10 cap 05/23/21 [Rx] Follow up Appointment(s)/Referral(s): Chilo Jacobo DO [Primary Care Provider] - 1 Week Alan Meeks DO [Doctor of Osteopathic Medicine] - 06/05/21 2:00 pm (With Mallory Mac) Ambulatory/Diagnostic Orders: Continuous Passive Motion (CPM) Machine [DME.AMB1] Location: None Selected Patient Instructions/Handouts: *Surgery [facility] - On-Q Pain Pump Discharge Instructions, How to Use an Incentive Spirometer (DC), Joint Replacement Surgery (DC) Activity/Diet/Wound Care/Special Instructions: Weightbearing as tolerated with a walker. CPM 5-6h daily as tolerated. Leave dressing intact. Dressing may be removed by home care nurse or by patient in 7 days. Then change dressing twice daily until follow up. May shower with initial dressing intact and after removal. If dressing become saturated, please remove. Recommend use of compression stockings daily until follow up to help prevent swelling and blood clots. May remove at night before sleeping. Please resume Coumadin. Please follow up with [facility] and call with any questions or concerns, . Discharge Disposition: HOME WITH HOME HEALTH SERVICES
[2021-05-24] MEDS: SODIUM CHLORIDE 0.9% 1,000 ML IV SCH (08:14)
[2021-05-24] MEDS: GABAPENTIN 300 MG CAP PO SCH (08:24)
[2021-05-24] MEDS: ASPIRIN 81 MG PO SCH (08:24)
[2021-05-24] MEDS: TIMOLOL 0.5% OPHTH DROPS 5 ML BTL BOTH EYES SCH (08:24)
[2021-05-24] MEDS: FERROUS SULFATE 325 MG TAB PO SCH (08:24)
[2021-05-24] MEDS: DOXAZOSIN 1 MG TAB PO SCH (08:24)
[2021-05-24] MEDS: FAMOTIDINE 20 MG TAB PO SCH (08:24)
[2021-05-24] MEDS: BRIMONIDINE TARTRATE 0.2% DROPS 5 ML BTL BOTH EYES SCH (08:25)
[2021-05-24 08:39] VITALS: BP 132/74; PULSE 72; TEMP 97.7
[2021-05-24] MEDS ORDERED: MULTIVITAMINS, THERA 1 EACH TAB PO SCH (09:00)
[2021-05-24] MEDS ORDERED: ASCORBIC ACID 500 MG TAB PO SCH (09:00)
[2021-05-24 09:19] LABS: INR 1.13 (0.90-1.11); Prothrombin Time 12.4 sec (9.9-11.9)
[2021-05-24] MEDS: LACTATED RINGERS 1,000 ML IV SCH (10:29)
[2021-05-24] MEDS ORDERED: WARFARIN 7.5 MG TAB PO ONE (18:00)
--- NOTE | 2021-05-24 19:53 | P.PN ---
Progress Note - Text Progress Note Date: 05/24/21 - Chief Complaint Right knee surgery This is a 76-year-old patient who follows with Dr. Chilo Linares. Chronic stable medical conditions include CAD with a stent in [address] Allen. Patient recently had a clearance for surgery. Patient had 3 prior DVTs. For which he is on anticoagulation. Hypertension, hyperlipidemia, primary osteoarthritis, BPH. Patient has undergone right total knee arthroplasty. Some pain is present. Somewhat limited in walking because of pain. No nausea vomiting. No chest pain. Did tolerate some breakfast this morning. Sitting up in a chair. Patient's is present. Today: Sitting up in a chair. Did walk with therapy. In control. Did tolerate breakfast. No chest pain or shortness of breath. Care was discussed with the patient and at the bedside. Questions answered. Review of systems: Was done for constitutional, cardiovascular, GI, pulmonary. relevant finding as above Current medications reviewed in the electronic system Past medical history to include: CAD with stent, DVT 3, hyperlipidemia, hypertension, osteoarthritis, BPH, skin cancer, low,, colon polyps, anxiety depression Social history: Patient smoked a pack a day for 15 years stopped in 2007. Alcohol occasionally. . Did work as a [employer] Family history: Reviewed, noncontributory to presentation Physical examination: VITAL SIGNS: 97.7, 72, 16, 132/74, 99% room air GENERAL: Sitting up in a chair, awake, comfortable EYES: Pupils equal. Conjunctiva normal. HEENT: External appearance of nose and ears normal, oral cavity grossly normal. NECK: JVD not raised; masses not palpable. HEART: First and second heart sounds are normal; no edema. LUNGS: Respiratory rate normal; clear to auscultation. ABDOMEN: Soft, nontender, liver spleen not palpable, no masses palpable. PSYCH: Alert and oriented x3; mood and affect normal. MUSCULOSKELETAL: Dressing over the right knee. Evidence of OA. INVESTIGATIONS, reviewed in the clinical context: White count 13.8 hemoglobin 11.7 platelets 153 Coronavirus [PCL]: Not detected Previous labs [April 26]: White count 7.7 hemoglobin 14.8 platelets 165 potassium 5.6 creatinine 0.95 Assessment and plan: -Right total knee arthroplasty. Coumadin and Lovenox resumed. -CAD with stent in 2007 Aspirin 81 mg Toprol-XL 25 mg daily at bedtime -Hyperlipidemia Lipitor 20 mg daily at bedtime -Essential hypertension Toprol-XL 25 mg daily at bedtime. Hold lisinopril as blood pressure running on the lower side -Primary osteoarthritis Pain medications as needed -BPH Cardura 1 mg by mouth daily -Chronic recurrent DVT 3 Resume Lovenox 150 mg subcu every 12 -Morbid obesity BMI 44.9 Weight loss measures and follow-up with PCP -Acute blood loss anemia as expected from surgery Ferrous sulfate 325 mg twice a day -GERD Pepcid 20 mg twice a day Care was discussed with the patient. Follow-up with PCP. Thank you Dr. Meeks
== END 2021-05-24 14:10 | disposition home health service (06) ==
LOC: OR 07:41 → 4SSUR 15:31 → OR 05-23 15:13
PROVIDERS: ADMIT Orthopaedic Surgery; ATTEND Orthopaedic Surgery
DX: M17.11 Unilateral primary osteoarthritis, right knee (principal); D62 Acute posthemorrhagic anemia; Z20.822 Contact with and (suspected) exposure to COVID-19; I10 Essential (primary) hypertension; E78.5 Hyperlipidemia, unspecified; I25.10 Atherosclerotic heart disease of native coronary artery without angina pectoris; I25.2 Old myocardial infarction; K21.9 Gastro-esophageal reflux disease without esophagitis; M19.90 Unspecified osteoarthritis, unspecified site; N40.0 Benign prostatic hyperplasia without lower urinary tract symptoms; E66.01 Morbid (severe) obesity due to excess calories; Z68.41 Body mass index [BMI] 40.0-44.9, adult; F32.A Depression, unspecified; F41.9 Anxiety disorder, unspecified; H40.9 Unspecified glaucoma; Z79.01 Long term (current) use of anticoagulants; Z79.1 Long term (current) use of non-steroidal anti-inflammatories (NSAID); Z79.82 Long term (current) use of aspirin; Z79.899 Other long term (current) drug therapy; Z85.828 Personal history of other malignant neoplasm of skin; Z86.718 Personal history of other venous thrombosis and embolism; Z87.891 Personal history of nicotine dependence; Z95.5 Presence of coronary angioplasty implant and graft; Z86.010 Personal history of colon polyps; Z95.818 Presence of other cardiac implants and grafts
CPT/HCPCS: 27447; 97116; 97161; 64999; 64448; 76942; 80048; 85025; 85610 ×2; 88300; 87635; 73560; G0378 ×2; C1776; J2250; J1200; J1100; J0690 ×3; J2405; J2001; J3010; J1885; J1650 ×2; J2795 ×2; J0330; J2704; J1170

== ENCOUNTER 2021-06-10 16:16 | Inpatient (IN) | payer MEDICARE ==
[2021-06-10] MEDS ORDERED: ACETAMINOPHEN TAB 500 MG TAB PO STA (17:39)
[2021-06-10] MEDS ORDERED: FAMOTIDINE 20 MG/2 ML VIAL IV STA (18:36)
--- NOTE | 2021-06-10 18:53 | ED ---
General Adult HPI - General Chief complaint: Extremity Injury, Lower Stated complaint: Post op knee/shivering Time Seen by Provider: 06/10/21 18:12 Source: patient, RN notes reviewed Mode of arrival: wheelchair - History of Present Illness Initial comments: 76-year-old male presents to the emergency room for a chief complaint of fever. states the patient was shaking at home and this made her nervous as he has never had this before. Patient denies any other symptoms such as cough congestion sore throat. He states that he does have right knee pain. States that he had knee surgery on May 23 for a replacement. States that since then he has fallen on it twice. Now he notices it is more red and draining pus. States she picked of antibiotics a couple days ago for it and has been taking it. - Related Data Home Medications Medication Instructions Recorded Confirmed Ascorbic Acid [Vitamin C] 500 mg PO DAILY 10/08/18 05/15/21 Aspirin [Adult Low Dose Aspirin EC] 81 mg PO DAILY 10/08/18 05/15/21 Atorvastatin [Lipitor] 20 mg PO HS 10/08/18 05/15/21 Brimonidine Tartrate/Timolol 1 drop BOTH EYES BID 10/08/18 05/15/21 [Combigan 0.2%-0.5% Eye Drops] Glucosam/Vel-Msm1/C/Abdullahi/Bosw 1 each PO BID 10/08/18 05/15/21 [Iphyesxykel-Crhkcbbiowu-CZM Tb] Meloxicam [Mobic] 7.5 mg PO DAILY 10/08/18 05/15/21 Metoprolol Succinate (ER) [Toprol 25 mg PO HS 10/08/18 05/15/21 XL] Multivitamins, Thera [Multivitamin 1 tab PO DAILY 10/08/18 05/15/21 (formulary)] Turmeric Root Extract [Turmeric] 580 mg PO BID 10/08/18 05/15/21 Vitamin B Complex 1 each PO DAILY 10/08/18 05/15/21 Warfarin [Coumadin] 5 mg PO MOTUWETHFRSA 10/08/18 05/15/21 lisinopriL 20 mg PO DAILY 10/08/18 05/15/21 Calcium With Magnesium 1 tab PO DAILY 05/15/21 Doxazosin [Cardura] 1 mg PO DAILY 05/15/21 05/15/21 Enoxaparin [Lovenox] 150 mg SQ Q12H 05/15/21 05/15/21 Previous Rx's Medication Instructions Recorded HYDROcodone/APAP 7.5-325MG [[place] 1 - 2 tab PO Q6H PRN #32 tab 05/22/21 7.5-325] Ondansetron Odt [Zofran Odt] 1 tab PO Q8HR PRN #10 tab 05/22/21 Sennosides [Senokot] 2 tab PO DAILY PRN #60 tablet 05/22/21 Gabapentin 300 mg PO BID 5 Days #10 cap 05/23/21 Famotidine [Pepcid] 20 mg PO BID #60 tab 05/24/21 Ferrous Sulfate [Iron (65 MG 325 mg PO BID-W/MEALS tab 05/24/21 Elemental)] Allergies Allergy/AdvReac Type Severity Reaction Status Date / Time No Known Allergies Allergy Verified 06/10/21 16:32 Review of Systems ROS Statement: Those systems with pertinent positive or pertinent negative responses have been documented in the HPI. ROS Other: All systems not noted in ROS Statement are negative. Past Medical History Past Medical History: Coronary Artery Disease (CAD), Cancer, Deep Vein Thrombosis (DVT), Eye Disorder, Hyperlipidemia, Hypertension, Myocardial Infarction ([place]), Osteoarthritis ([place]), Prostate Disorder Additional Past Medical History / Comment(s): skin cancer, glaucoma, DVT x3, colon polyps., BPH., states no blood products-Jehovah Witness. Last Myocardial Infarction Date:: UNKNOWN History of Any Multi-Drug Resistant Organisms: None Reported Past Surgical History: Heart Catheterization With Stent, Orthopedic Surgery Additional Past Surgical History / Comment(s): heart cath with stent (2007), kaity carpal tunnel, MOHS procedure, left eye vitreous hemorrhages, detached retina repair., Trap Ease-permanent vena cava filter (2016). Past Anesthesia/Blood Transfusion Reactions: Motion Sickness Additional Past Anesthesia/Blood Transfusion Reaction / Comment(s): NO BLOOD PRODUCTS-JEHOVAH WITNESS Date of Last Stent Placement:: 2007 Past Psychological History: Anxiety, Depression Smoking Status: Former smoker Past Alcohol Use History: Occasional Past Drug Use History: None Reported - Past Family History Mother Family Medical History: No Reported History General Exam General appearance: alert, in no apparent distress Head exam: Present: atraumatic Eye exam: Present: normal appearance, PERRL, EOMI. Absent: scleral icterus, conjunctival injection ENT exam: Present: normal exam, mucous membranes moist Neck exam: Present: normal inspection, full ROM. Absent: tenderness Respiratory exam: Present: normal lung sounds bilaterally. Absent: respiratory distress, wheezes Cardiovascular Exam: Present: regular rate, normal rhythm, normal heart sounds GI/Abdominal exam: Present: soft, normal bowel sounds. Absent: distended, tenderness Course Vital Signs 06/10/21 06/10/21 16:28 20:56 Temperature 102.8 F H 99.5 F Pulse Rate 101 H 117 H Respiratory 18 19 Rate Blood Pressure 117/68 97/61 O2 Sat by Pulse 96 96 Oximetry EKG Findings - EKG Comments: EKG Findings:: Atrial fibrillation with RVR, ventricular rate 135, QRS duration 84, QTC 483 Medical Decision Making - Medical Decision Making Patient presents febrile with a temperature 102.8 he is tachycardic which is likely secondary to fever. However patient also has atrial fibrillation which I believe to be new onset. Heart rate anywhere from 100 to 1:30. We are trying to treat with fluids first given patient is septic from cellulitis of the right knee. I did obtain a culture from this as there is some purulent drainage from incision site as well. White blood cell count was 21.9 with a left shift. Lactic acid is normal. Patient also has an acute DVT of the right leg. He is on Coumadin with an INR of 1.8 which is subtherapeutic. Case was discussed with Dr. Fu. Recommending 150 mg subcu Lovenox twice a day as well as Unasyn and an infectious disease consult. We will consult cardiology for new onset A. fib. We will also consult orthopedics given [facility]. - Lab Data Result diagrams: 06/10/21 18:52 06/10/21 18:52 Lab Results 06/10/21 06/10/21 06/10/21 Range/Units 17:43 18:52 18:52 WBC 21.9 H (3.8-10.6) k/uL RBC 3.78 L (4.30-5.90) m/uL Hgb 12.2 L (13.0-17.5) gm/dL Hct 37.6 L (39.0-53.0) % MCV 99.3 (80.0-100.0) fL MCH 32.3 (25.0-35.0) pg MCHC 32.5 (31.0-37.0) g/dL RDW 14.1 (11.5-15.5) % Plt Count 394 D (150-450) k/uL MPV 7.3 Neutrophils % 91 % Lymphocytes % 2 % Monocytes % 5 % Eosinophils % 1 % Basophils % 0 % Neutrophils # 19.9 H (1.3-7.7) k/uL Lymphocytes # 0.5 L (1.0-4.8) k/uL Monocytes # 1.1 H (0-1.0) k/uL Eosinophils # 0.1 (0-0.7) k/uL Basophils # 0.1 (0-0.2) k/uL ESR 53 H (0-15) mm/hr PT 17.7 H (9.0-12.0) sec INR 1.8 H (<1.2) APTT 32.6 H (22.0-30.0) sec Sodium (137-145) mmol/L Potassium (3.5-5.1) mmol/L Chloride (98-107) mmol/L Carbon Dioxide (22-30) mmol/L Anion Gap mmol/L BUN (9-20) mg/dL Creatinine (0.66-1.25) mg/dL Est GFR (CKD-EPI)AfAm (>60 ml/min/1.73 sqM) Est GFR (CKD-EPI)NonAf (>60 ml/min/1.73 sqM) Glucose (74-99) mg/dL Plasma Lactic Acid Ronnell (0.7-2.0) mmol/L Calcium (8.4-10.2) mg/dL Total Bilirubin (0.2-1.3) mg/dL AST (17-59) U/L ALT (4-49) U/L Alkaline Phosphatase (38-126) U/L Troponin I (0.000-0.034) ng/mL C-Reactive Protein (<1.0) mg/dL Total Protein (6.3-8.2) g/dL Albumin (3.5-5.0) g/dL Urine Color Urine Appearance (Clear) Urine pH (5.0-8.0) Ur Specific [place] (1.001-1.035) Urine Protein (Negative) Urine Glucose (UA) (Negative) Urine Ketones (Negative) Urine Blood (Negative) Urine Nitrite (Negative) Urine Bilirubin (Negative) Urine Urobilinogen (<2.0) mg/dL Ur Leukocyte Esterase (Negative) Urine RBC (0-5) /hpf Urine WBC (0-5) /hpf Ur Squamous Epith Cells (0-4) /hpf Amorphous Sediment (None) /hpf Hyaline Casts (0-2) /lpf Urine Mucus (None) /hpf Influenza Type A (PCR) Not Detected (Not Detectd) Influenza Type B (PCR) Not Detected (Not Detectd) RSV (PCR) Not Detected (Not Detectd) SARS-CoV-2 (PCR) Not Detected (Not Detectd) 06/10/21 06/10/21 06/10/21 Range/Units 18:52 18:52 18:52 WBC (3.8-10.6) k/uL RBC (4.30-5.90) m/uL Hgb (13.0-17.5) gm/dL Hct (39.0-53.0) % MCV (80.0-100.0) fL MCH (25.0-35.0) pg MCHC (31.0-37.0) g/dL RDW (11.5-15.5) % Plt Count (150-450) k/uL MPV Neutrophils % % Lymphocytes % % Monocytes % % Eosinophils % % Basophils % % Neutrophils # (1.3-7.7) k/uL Lymphocytes # (1.0-4.8) k/uL Monocytes # (0-1.0) k/uL Eosinophils # (0-0.7) k/uL Basophils # (0-0.2) k/uL ESR (0-15) mm/hr PT (9.0-12.0) sec INR (<1.2) APTT (22.0-30.0) sec Sodium 131 L (137-145) mmol/L Potassium 4.4 (3.5-5.1) mmol/L Chloride 100 (98-107) mmol/L Carbon Dioxide 20 L (22-30) mmol/L Anion Gap 11 mmol/L BUN 24 H (9-20) mg/dL Creatinine 0.92 (0.66-1.25) mg/dL Est GFR (CKD-EPI)AfAm >90 (>60 ml/min/1.73 sqM) Est GFR (CKD-EPI)NonAf 81 (>60 ml/min/1.73 sqM) Glucose 137 H (74-99) mg/dL Plasma Lactic Acid Ronnell 1.2 (0.7-2.0) mmol/L Calcium 9.4 (8.4-10.2) mg/dL Total Bilirubin 1.2 (0.2-1.3) mg/dL AST 38 (17-59) U/L ALT 26 (4-49) U/L Alkaline Phosphatase 79 (38-126) U/L Troponin I (0.000-0.034) ng/mL C-Reactive Protein 8.5 H (<1.0) mg/dL Total Protein 6.7 (6.3-8.2) g/dL Albumin 3.7 (3.5-5.0) g/dL Urine Color Yellow Urine Appearance Clear (Clear) Urine pH 5.5 (5.0-8.0) Ur Specific [place] 1.027 (1.001-1.035) Urine Protein 1+ H (Negative) Urine Glucose (UA) Negative (Negative) Urine Ketones Negative (Negative) Urine Blood Trace H (Negative) Urine Nitrite Negative (Negative) Urine Bilirubin Negative (Negative) Urine Urobilinogen 2.0 (<2.0) mg/dL Ur Leukocyte Esterase Negative (Negative) Urine RBC 2 (0-5) /hpf Urine WBC 4 (0-5) /hpf Ur Squamous Epith Cells 1 (0-4) /hpf Amorphous Sediment Rare H (None) /hpf Hyaline Casts 1 (0-2) /lpf Urine Mucus Many H (None) /hpf Influenza Type A (PCR) (Not Detectd) Influenza Type B (PCR) (Not Detectd) RSV (PCR) (Not Detectd) SARS-CoV-2 (PCR) (Not Detectd) 06/10/21 Range/Units 18:52 WBC (3.8-10.6) k/uL RBC (4.30-5.90) m/uL Hgb (13.0-17.5) gm/dL Hct (39.0-53.0) % MCV (80.0-100.0) fL MCH (25.0-35.0) pg MCHC (31.0-37.0) g/dL RDW (11.5-15.5) % Plt Count (150-450) k/uL MPV Neutrophils % % Lymphocytes % % Monocytes % % Eosinophils % % Basophils % % Neutrophils # (1.3-7.7) k/uL Lymphocytes # (1.0-4.8) k/uL Monocytes # (0-1.0) k/uL Eosinophils # (0-0.7) k/uL Basophils # (0-0.2) k/uL ESR (0-15) mm/hr PT (9.0-12.0) sec INR (<1.2) APTT (22.0-30.0) sec Sodium (137-145) mmol/L Potassium (3.5-5.1) mmol/L Chloride (98-107) mmol/L Carbon Dioxide (22-30) mmol/L Anion Gap mmol/L BUN (9-20) mg/dL Creatinine (0.66-1.25) mg/dL Est GFR (CKD-EPI)AfAm (>60 ml/min/1.73 sqM) Est GFR (CKD-EPI)NonAf (>60 ml/min/1.73 sqM) Glucose (74-99) mg/dL Plasma Lactic Acid Ronnell (0.7-2.0) mmol/L Calcium (8.4-10.2) mg/dL Total Bilirubin (0.2-1.3) mg/dL AST (17-59) U/L ALT (4-49) U/L Alkaline Phosphatase (38-126) U/L Troponin I <0.012 (0.000-0.034) ng/mL C-Reactive Protein (<1.0) mg/dL Total Protein (6.3-8.2) g/dL Albumin (3.5-5.0) g/dL Urine Color Urine Appearance (Clear) Urine pH (5.0-8.0) Ur Specific [place] (1.001-1.035) Urine Protein (Negative) Urine Glucose (UA) (Negative) Urine Ketones (Negative) Urine Blood (Negative) Urine Nitrite (Negative) Urine Bilirubin (Negative) Urine Urobilinogen (<2.0) mg/dL Ur Leukocyte Esterase (Negative) Urine RBC (0-5) /hpf Urine WBC (0-5) /hpf Ur Squamous Epith Cells (0-4) /hpf Amorphous Sediment (None) /hpf Hyaline Casts (0-2) /lpf Urine Mucus (None) /hpf Influenza Type A (PCR) (Not Detectd) Influenza Type B (PCR) (Not Detectd) RSV (PCR) (Not Detectd) SARS-CoV-2 (PCR) (Not Detectd) Disposition Clinical Impression: Cellulitis, Postoperative pain of knee, Acute DVT (deep venous thrombosis), New onset atrial fibrillation, Sepsis, Subtherapeutic anticoagulation Disposition: ADMITTED IP TO THIS HOSP Is patient prescribed a controlled substance at d/c from ED?: No Referrals: Chilo Jacobo DO [Primary Care Provider] - 1-2 days Time of Disposition: 21:48
[2021-06-10 19:16] LABS: INR 1.8 (<1.2); Partial Thromboplastin Time 32.6 sec (22.0-30.0); Prothrombin Time 17.7 sec (9.0-12.0); Sodium 131 mmol/L (137-145)
[2021-06-10 19:19] LABS: ALT 26 U/L (4-49); AST 38 U/L (17-59); African American GFR (CKD) >90 (>60 ml/min/1.73 sqM); Albumin 3.7 g/dL (3.5-5.0); Alkaline Phosphatase 79 U/L (38-126); Anion Gap 11 mmol/L; Blood Urea Nitrogen 24 mg/dL (9-20); C Reactive Protein 8.5 mg/dL (<1.0); Calcium 9.4 mg/dL (8.4-10.2); Carbon Dioxide 20 mmol/L (22-30); Chloride 100 mmol/L (98-107); Glucose 137 mg/dL (74-99); Non-African American GFR(CKD) 81 (>60 ml/min/1.73 sqM); Potassium 4.4 mmol/L (3.5-5.1); Total Bilirubin 1.2 mg/dL (0.2-1.3); Total Protein 6.7 g/dL (6.3-8.2)
[2021-06-10] MEDS ORDERED: SODIUM CHLORIDE 0.9% 500 ML 500 ML IV STA (19:31)
[2021-06-10 19:46] LABS: Basophils # (A) 0.1 k/uL (0-0.2); Basophils % (A) 0 %; Eosinophils # (A) 0.1 k/uL (0-0.7); Eosinophils % (A) 1 %; HCT 37.6 % (39.0-53.0); HGB 12.2 gm/dL (13.0-17.5); Lymphocytes # (A) 0.5 k/uL (1.0-4.8); Lymphocytes % (A) 2 %; MCH 32.3 pg (25.0-35.0); MCHC 32.5 g/dL (31.0-37.0); MCV 99.3 fL (80.0-100.0); Mean Platelet Volume 7.3; Monocytes # (A) 1.1 k/uL (0-1.0); Monocytes % (A) 5 %; Neutrophils # (A) 19.9 k/uL (1.3-7.7); Neutrophils % (A) 91 %; RBC 3.78 m/uL (4.30-5.90); RDW 14.1 % (11.5-15.5); WBC 21.9 k/uL (3.8-10.6)
[2021-06-10] MEDS ORDERED: cefTRIAXone IN SWFI 1,000 MG/10 ML SYRINGE IVP STA ×2 (19:58→21:25)
[2021-06-10 20:11] LABS: Amorphous Sediment,Urine Rare /hpf; Appearance,Urine Clear (Clear); Bilirubin,Urine Negative (Negative); Blood,Urine Trace (Negative); Color,Urine Yellow; Glucose,Urine (UA) Negative (Negative); Hyaline Casts,Urine 1 /lpf (0-2); Ketones,Urine Negative (Negative); Leukocyte Esterase,Urine Negative (Negative); Mucus,Urine Many /hpf; Nitrite,Urine Negative (Negative); PH, Urine 5.5 (5.0-8.0); Protein,Urine 1+ (Negative); RBC,Urine 2 /hpf (0-5); Specific Gravity,Urine 1.027 (1.001-1.035); Squamous Epithelial Cell,Urine 1 /hpf (0-4); WBC,Urine 4 /hpf (0-5)
--- NOTE | 2021-06-10 20:16 | XR ---
EXAMINATION TYPE: XR knee complete RT DATE OF EXAM: 06/10/2021 COMPARISON: NONE HISTORY: Pain TECHNIQUE: 3 views FINDINGS: There is right knee prosthesis. Components appear in anatomic position. There is no evidenc e of a fracture. IMPRESSION: Right knee prosthesis. No fracture seen.
[2021-06-10 20:17] LABS: Platelet Count 394 k/uL (150-450)
--- NOTE | 2021-06-10 20:17 | XR ---
EXAMINATION TYPE: XR chest 2V DATE OF EXAM: 06/10/2021 COMPARISON: NONE HISTORY: Pain and fever TECHNIQUE: 2 views FINDINGS: Heart and mediastinum are normal. Lungs are clear of consolidation. There is slight coarsen ing of the lung markings. There is no pleural effusion. There are no hilar masses. There are chest le ads. Bony thorax is intact IMPRESSION: Mild pulmonary fibrotic changes. No heart failure.
[2021-06-10 20:46] LABS: Erythrocyte Sedimentation Rate 53 mm/hr (0-15)
--- NOTE | 2021-06-10 20:52 | US ---
EXAMINATION TYPE: US venous doppler duplex LE RT DATE OF EXAM: 06/10/2021 8:38 PM COMPARISON: US 2016 CLINICAL HISTORY: pain. SIDE PERFORMED: Right TECHNIQUE: The lower extremity deep venous system is examined utilizing real time linear array sonog brian with graded compression, doppler sonography and color-flow sonography. VESSELS IMAGED: Common Femoral Vein Deep Femoral Vein Greater Saphenous Vein * Femoral Vein Popliteal Vein Small Saphenous Vein * Proximal Calf Veins (* superficial vessels) Right Leg: Positive for DVT within anterior proximal calf vein IMPRESSION: Calf veins are not compressible and consistent with acute deep vein thrombosis. There is no evidence of deep vein thrombosis in the femoral and popliteal vein.
[2021-06-10] MEDS ORDERED: SODIUM CHLORIDE 0.9% 1,000 ML IV STA (21:25)
[2021-06-10] MEDS ORDERED: VANCOMYCIN IV PER PHARMACY 1 EACH MISC MISCELLANE PRN (21:25)
[2021-06-10] MEDS ORDERED: ONDANSETRON 4 MG/2 ML VIAL IVP PRN (21:48)
[2021-06-10] MEDS ORDERED: NALOXONE 0.4 MG/ML 1 ML VIAL IV PRN (21:48)
[2021-06-10] MEDS ORDERED: ACETAMINOPHEN TAB 325 MG TAB PO PRN (21:48)
[2021-06-10] MEDS ORDERED: AMPICILLIN-SULBACTAM 3 GM in SODIUM CHLORIDE 0.9% 100 ML IVPB STA (21:50)
[2021-06-10] MEDS ORDERED: ENOXAPARIN 150 MG/ML SYRINGE SQ STA (21:51)
[2021-06-10] MEDS ORDERED: VANCOMYCIN 2,500 MG in SODIUM CHLORIDE 0.9% 500 ML 500 ML IVPB ONE (22:00)
[2021-06-10] MEDS ORDERED: CALCIUM CARBONATE 500 MG CHEWABLE PO PRN (22:35)
[2021-06-10] MEDS: SODIUM CHLORIDE 0.9% 1,000 ML IV SCH (22:50)
[2021-06-11] MEDS: MORPHINE SULFATE 4 MG/ML SYRINGE IV PRN ×4 (01:08→13:32)
[2021-06-11] MEDS: AMPICILLIN-SULBACTAM 3 GM in SODIUM CHLORIDE 0.9% 100 ML IVPB SCH ×2 (04:10→09:19)
[2021-06-11] MEDS: HYDROcodone/APAP 10-325MG 1 EACH TAB PO PRN ×2 (04:17→14:27)
[2021-06-11 08:52] LABS: Basophils # (A) 0.1 k/uL (0-0.2); Basophils % (A) 0 %; Eosinophils # (A) 0.1 k/uL (0-0.7); Eosinophils % (A) 0 %; HCT 37.3 % (39.0-53.0); HGB 11.8 gm/dL (13.0-17.5); Hypochromasia Moderate; Lymphocytes # (A) 2.1 k/uL (1.0-4.8); Lymphocytes % (A) 11 %; MCH 32.3 pg (25.0-35.0); MCHC 31.6 g/dL (31.0-37.0); MCV 102.3 fL (80.0-100.0); Macrocytosis Slight; Mean Platelet Volume 6.8; Monocytes # (A) 0.9 k/uL (0-1.0); Monocytes % (A) 5 %; Neutrophils # (A) 15.1 k/uL (1.3-7.7); Neutrophils % (A) 82 %; Platelet Count 365 k/uL (150-450); RBC 3.64 m/uL (4.30-5.90); WBC 18.5 k/uL (3.8-10.6)
[2021-06-11] MEDS ORDERED: NON FORMULARY DRUG (Vitamin B Complex [Vitamin B Complex] 1 EACH Capsule) PO SCH (09:00)
[2021-06-11] MEDS ORDERED: NON FORMULARY DRUG (Glucosam/Chon-Msm1/C/Mang/Bosw [Glucosamine-Chondroitin-Msm Tb] 1 EACH PO SCH (09:00)
[2021-06-11] MEDS ORDERED: NON FORMULARY DRUG (Turmeric Root Extract [Turmeric] 500 MG Capsule) PO SCH (09:00)
[2021-06-11] MEDS ORDERED: lisinopriL 20 MG TAB PO SCH (09:00)
[2021-06-11] MEDS: PSYLLIUM HUSK 100% 6 GM PACKET PO SCH (09:19)
[2021-06-11] MEDS: ASCORBIC ACID 500 MG TAB PO SCH (09:20)
[2021-06-11] MEDS: MULTIVITAMINS, THERA 1 EACH TAB PO SCH (09:20)
[2021-06-11] MEDS: ENOXAPARIN 150 MG/ML SYRINGE SQ SCH ×2 (09:20→21:24)
[2021-06-11] MEDS: GABAPENTIN 300 MG CAP PO SCH ×2 (09:20→21:24)
[2021-06-11] MEDS: FAMOTIDINE 20 MG TAB PO SCH ×2 (09:20→21:24)
[2021-06-11] MEDS: ASPIRIN 81 MG PO SCH (09:20)
[2021-06-11] MEDS: DOXAZOSIN 1 MG TAB PO SCH (09:21)
[2021-06-11] MEDS: MELOXICAM 7.5 MG TAB PO SCH (09:21)
[2021-06-11] MEDS: BRIMONIDINE TARTRATE 0.2% DROPS 5 ML BTL BOTH EYES SCH ×2 (09:22→21:25)
[2021-06-11] MEDS: TIMOLOL 0.5% OPHTH DROPS 5 ML BTL BOTH EYES SCH ×2 (09:22→21:25)
[2021-06-11] MEDS: SODIUM CHLORIDE 0.9% 1,000 ML IV SCH ×2 (09:45→18:33)
[2021-06-11] MEDS ORDERED: VANCOMYCIN 2,500 MG in SODIUM CHLORIDE 0.9% 500 ML 500 ML IVPB SCH ×4 (11:00)
--- NOTE | 2021-06-11 14:51 | P.CNOR ---
History of Present Illness - [facility] Consult date: 06/11/21 History of present illness: This patient is a 76-year-old male with a past medical history of DVT 3 on Coumadin, CAD with a stent in 2007, hypertension, hyperlipidemia that presented to [facility] emergency department on 06/10/21 with complaints of shaking and chills, and per his , confusion. Patient states he underwent a right total knee arthroplasty on 05/22/[address] Alan Meeks. The patient states he did have 2 falls shortly after returning home from surgery. He has been able to ambulate ok since the falls, but has continued to experience right knee pain. He states he was seen in the office on 06/05/21 and patient states x- rays of the right knee were normal and incision appeared benign. Patient states the days following his office visit, his incision started to look red and was draining fluid. Patient states his physical therapist urged him to call the office on , and request an antibiotic. Patient states Keflex was called in for him on and he did start taking this as prescribed. Due to his right knee pain and chills, he presented to the emergency department yesterday 06/10/21 for evaluation. Patient was found to be febrile with a temperature of 102.8F, elevated white blood cell count of 21.9, tachycardic at 101. Patient was also found to be in new onset atrial fibrillation. Doppler ultrasound of the right lower extremity revealed an acute DVT, which patient is taking Cou madin although INR is subtherapeutic at 1.8. Per ER note, the incision was draining pus and a wound culture was obtained. Patient was started on IV vancomycin, unasyn. Patient was admitted under the care of Dr. Fu with a consult placed to infectious disease, as well as cardiology due to his new-onset atrial fibrillation. Orthopedics was consulted for post-operative evaluation of the right knee. Past Medical History Past Medical History: Coronary Artery Disease (CAD), Cancer, Deep Vein Thrombosis (DVT), Eye Disorder, Hyperlipidemia, Hypertension, Myocardial Infarction ([place]), Osteoarthritis (OA), Prostate Disorder Additional Past Medical History / Comment(s): skin cancer, glaucoma, DVT x3, colon polyps., BPH., states no blood products-Jehovah Witness. Last Myocardial Infarction Date:: UNKNOWN History of Any Multi-Drug Resistant Organisms: None Reported Past Surgical History: Heart Catheterization With Stent, Orthopedic Surgery Additional Past Surgical History / Comment(s): heart cath with stent (2007), kaity carpal tunnel, MOHS procedure, left eye vitreous hemorrhages, detached retina repair., Trap Ease-permanent vena cava filter (2016), right knee replacement. Past Anesthesia/Blood Transfusion Reactions: Motion Sickness Additional Past Anesthesia/Blood Transfusion Reaction / Comm: NO BLOOD PRODUCTS - JEHOVAH WITNESS. Date of Last Stent Placement:: 2007 Past Psychological History: Anxiety, Depression Smoking Status: Former smoker Past Alcohol Use History: Occasional Additional Past Alcohol Use History / Comment(s): QUIT SMOKING 2007, SMOKED FOR 15 YRS , HX 1PPD. Past Drug Use History: None Reported Additional Drug Use History / Comment(s): TRIED CBD OIL - NONE CURRENTLY. - Past Family History Mother Family Medical History: No Reported History Medications and Allergies Home Medications Medication Instructions Recorded Confirmed Type Ascorbic Acid [Vitamin C] 500 mg PO DAILY 10/08/18 06/10/21 History Aspirin [Adult Low Dose Aspirin EC] 81 mg PO DAILY 10/08/18 06/10/21 History Atorvastatin [Lipitor] 20 mg PO HS 10/08/18 06/10/21 History Brimonidine Tartrate/Timolol 1 drop BOTH EYES BID 10/08/18 06/10/21 History [Combigan 0.2%-0.5% Eye Drops] Glucosam/Vel-Msm1/C/Abdullahi/Bosw 1 tab PO BID 10/08/18 06/10/21 History [Fcpqajostfr-Wnsrvdgygvl-UVD Tb] Meloxicam [Mobic] 7.5 mg PO DAILY 10/08/18 06/10/21 History Metoprolol Succinate (ER) [Toprol 25 mg PO HS 10/08/18 06/10/21 History XL] Multivitamins, Thera [Multivitamin 1 tab PO DAILY 10/08/18 06/10/21 History (formulary)] Turmeric Root Extract [Turmeric] 500 mg PO BID 10/08/18 06/10/21 History Vitamin B Complex 1 cap PO DAILY 10/08/18 06/10/21 History Warfarin [Coumadin] 5 mg PO MOTUWETHFRSA 10/08/18 06/10/21 History lisinopriL 20 mg PO DAILY 10/08/18 06/10/21 History Doxazosin [Cardura] 1 mg PO DAILY 05/15/21 06/10/21 History Gabapentin 300 mg PO BID 5 Days #10 cap 05/23/21 06/10/21 Rx Famotidine [Pepcid] 20 mg PO BID #60 tab 05/24/21 06/10/21 Rx Calcium 300mg With Magnesium 600mg 1 tab PO DAILY 06/10/21 06/10/21 History Calcium Carbonate [Tums] 500 mg PO ACHS PRN 06/10/21 06/10/21 History Cephalexin [Keflex] 500 mg PO QID 06/10/21 06/10/21 History HYDROcodone/APAP 10-325MG [[place] 1 tab PO QID PRN 06/10/21 06/10/21 History 10-325] Psyllium Husk/Aspartame [Metamucil 1.5 tsp PO DAILY 06/10/21 06/10/21 History Sugar-Free Powder] Allergies Allergy/AdvReac Type Severity Reaction Status Date / Time No Known Allergies Allergy Verified 06/10/21 22:07 Physical Examination On examination, the patient is sitting up in bed in no apparent distress. He is alert and oriented 3. His is bedside. His head appears normocephalic and atraumatic. His breathing appears nonlabored. A focused examination of the right knee was conducted. On inspection of the right knee, there is diffuse swelling of the knee and calf. There is a healing incision with surrounding erythema of the distal half of the incision. There does appear to be a small amount purulent material at the distal incision. There is moderate pain with passive lnjbk-au-gyrmba of the knee. No pain with PROM of the hip, ankle, toes. There is pain on palpation of the calf. Patient has good strength and range of motion of the right ankle. Motor and sensory range of motion is intact of the right lower extremity. Dorsalis pedis pulse +2, right lower extremity is warm and well-perfused. Results Right knee x-ray 06/10/21: Stable implants. No acute fracture. Doppler US right lower extremity 06/10/21: Positive for DVT in anterior proximal calf vein. - Labs Labs: Abnormal Lab Results - Last 24 Hours (Table) 12/18/21 12/18/21 12/18/21 Range/Units 18:52 18:52 18:52 WBC 21.9 H (3.8-10.6) k/uL RBC 3.78 L (4.30-5.90) m/uL Hgb 12.2 L (13.0-17.5) gm/dL Hct 37.6 L (39.0-53.0) % MCV (80.0-100.0) fL Neutrophils # 19.9 H (1.3-7.7) k/uL Lymphocytes # 0.5 L (1.0-4.8) k/uL Monocytes # 1.1 H (0-1.0) k/uL ESR 53 H (0-15) mm/hr PT 17.7 H (9.0-12.0) sec INR 1.8 H (<1.2) APTT 32.6 H (22.0-30.0) sec Sodium (137-145) mmol/L Carbon Dioxide (22-30) mmol/L BUN (9-20) mg/dL Glucose (74-99) mg/dL C-Reactive Protein (<1.0) mg/dL Urine Protein 1+ H (Negative) Urine Blood Trace H (Negative) Amorphous Sediment Rare H (None) /hpf Urine Mucus Many H (None) /hpf 06/10/21 06/11/21 Range/Units 18:52 08:21 WBC 18.5 H (3.8-10.6) k/uL RBC 3.64 L (4.30-5.90) m/uL Hgb 11.8 L (13.0-17.5) gm/dL Hct 37.3 L (39.0-53.0) % MCV 102.3 H (80.0-100.0) fL Neutrophils # 15.1 H (1.3-7.7) k/uL Lymphocytes # (1.0-4.8) k/uL Monocytes # (0-1.0) k/uL ESR (0-15) mm/hr PT (9.0-12.0) sec INR (<1.2) APTT (22.0-30.0) sec Sodium 131 L (137-145) mmol/L Carbon Dioxide 20 L (22-30) mmol/L BUN 24 H (9-20) mg/dL Glucose 137 H (74-99) mg/dL C-Reactive Protein 8.5 H (<1.0) mg/dL Urine Protein (Negative) Urine Blood (Negative) Amorphous Sediment (None) /hpf Urine Mucus (None) /hpf Microbiology - Last 24 Hours (Table) 06/10/21 19:36 Gram Stain - Preliminary Knee - Right Wound Culture - Preliminary H & H 06/10/21 06/11/21 Range/Units 18:52 08:21 Hgb 12.2 L 11.8 L (13.0-17.5) gm/dL Hct 37.6 L 37.3 L (39.0-53.0) % Coagulation 06/10/21 Range/Units 18:52 INR 1.8 H (<1.2) Result Diagrams: 06/11/21 08:21 06/10/21 18:52 Assessment and Plan Assessment: Status-post right total knee arthroplasty 05/22/21 Right knee infection, cellulitis DVT right lower leg New onset A fib Plan: - The clinical and imaging findings were discussed with the patient. The patient was discussed with Dr. Meeks. We will plan for I&D of the right knee this afternoon. Per patient last meal was Saturday, although patient did drink metamucil this morning around 10am. Therefore I&D will be scheduled for 4pm. Anesthesia is also recommending cardiology evaluation prior to surgery due to new onset atrial fibrillation. - NPO diet. - Antibiotics per infectious disease. DVT management per internal medicine. - Cardiology evaluation for new onset atrial fibrillation. - Further recommendations to be made post-operatively.
--- NOTE | 2021-06-11 15:22 | P.HPIM ---
History of Present Illness H&P Date: 06/11/21 Chief Complaint: Infected incision This is a 76-year-old patient who follows with Dr. Chilo Linares. Chronic stable medical conditions include CAD with a stent in [address] Allen. Patient recently had a clearance for surgery. Patient had 3 prior DVTs. For which he is on anticoagulation. Hypertension, hyperlipidemia, primary osteoarthritis, BPH. May 22/2021 right total knee arthroplasty. By Dr. Meeks. Subsequently was discharged. Doing well. Around May 24 patient took a fall on his incision no significant amount of bleeding. Then he started losing for about a week. I'll started having some pus discharge. Said having fever or chills. Decreased appetite. Presented to the ER. Put on IV Unasyn. Coumadin was held and patient was put on Lovenox. Tired. Patient also found to be in atrial fibrillation with a rapid ventricular rate in the ER. Also swelling of the right lower extremity. Review of systems: GEN.: Tired, fever or chills decreased appetite EYES: None HEENT: None NECK: None RESPIRATORY: None CARDIOVASCULAR: None GASTROINTESTINAL: Occasional GERD GENITOURINARY: None MUSCULOSKELETAL: Joint pains LYMPHATICS: None HEMATOLOGICAL: None PSYCHIATRY: None NEUROLOGICAL: None Past medical history to include: CAD with stent, DVT 3, hyperlipidemia, hypertension, osteoarthritis, BPH, skin cancer, low,, colon polyps, anxiety depression Social history: Patient smoked a pack a day for 15 years stopped in 2007. Alcohol occasionally. . 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 Conjunctiva normal. HEENT: External appearance of nose and ears normal, oral cavity grossly normal. NECK: JVD not raised; masses not palpable. HEART: First and second heart sounds are normal; no edema. LUNGS: Respiratory rate normal; clear to auscultation. ABDOMEN: Soft, nontender, liver spleen not palpable, no masses palpable. PSYCH: Alert and oriented x3; mood and affect normal. MUSCULOSKELETAL: Evidence of OA. DERMATOLOGICAL: Incision running down below the knee, with drainage, inflamed tender NEUROLOGICAL: Cranial nerves grossly intact; no facial asymmetry, power and sensation grossly intact. LYMPHATICS: No lymph nodes palpable in the axilla and neck INVESTIGATIONS, reviewed in the clinical context: White count 18.5 hemoglobin 11.8 platelets 365 INR 1.8 sodium 131 potassium 4.4 BUN 24 creatinine 0.9 to EKG tracing personally reviewed by me-atrial fibrillation with a rate of 135. Nonspecific ST segment changes. Doppler ultrasound right lower extremity: DVT in the anterior proximal calf veins Chest x-ray film personally reviewed by me-cardiomegaly with possible venous prominence Assessment and plan: -Acute infection of the right knee incision with pus drainage, following the stitches opening up secondary to a fall Needs I&D. IV Unasyn. Gram stain and culture. Consult ID. Orthopedics. -Right total knee arthroplasty done on May [address] Alan Meeks. -New onset atrial fibrillation with rapid ventricular rate Toprol-XL 25 mg twice a day. Cardiogenic consulted -CAD with stent in 2007 Aspirin 81 mg Toprol-XL 25 mg daily at bedtime -Hyperlipidemia Lipitor 20 mg daily at bedtime -Essential hypertension Toprol-XL 25 mg daily at bedtime. -Primary osteoarthritis Pain medications as needed -BPH Cardura 1 mg by mouth daily -Chronic recurrent DVT 3 Lovenox 150 mg subcu every 12 -Morbid obesity BMI 44. Weight loss measures and follow-up with PCP -Acute blood loss anemia as expected from surgery Ferrous sulfate 325 mg twice a day -GERD Pepcid 20 mg twice a day Patient is medically stable to proceed for surgery. This is a relatively productive surgery. IV Unasyn. Subcu Lovenox. Hold Coumadin. Home medications resumed. Care was discussed with the patient. Consultation to ID and orthopedics Given the complexity and severity of patient's condition expect the patient to be in the hospital at least for 2 overnights Past Medical History Past Medical History: Coronary Artery Disease (CAD), Cancer, Deep Vein Thrombosis (DVT), Eye Disorder, Hyperlipidemia, Hypertension, Myocardial Infarction ([place]), Osteoarthritis (OA), Prostate Disorder Additional Past Medical History / Comment(s): skin cancer, glaucoma, DVT x3, colon polyps., BPH., states no blood products-Jehovah Witness. Last Myocardial Infarction Date:: UNKNOWN History of Any Multi-Drug Resistant Organisms: None Reported Past Surgical History: Heart Catheterization With Stent, Orthopedic Surgery Additional Past Surgical History / Comment(s): heart cath with stent (2007), kaity carpal tunnel, MOHS procedure, left eye vitreous hemorrhages, detached retina repair., Trap Ease-permanent vena cava filter (2016), right knee replacement. Past Anesthesia/Blood Transfusion Reactions: Motion Sickness Additional Past Anesthesia/Blood Transfusion Reaction / Comment(s): NO BLOOD PRODUCTS - JEHOVAH WITNESS. Date of Last Stent Placement:: 2007 Past Psychological History: Anxiety, Depression Smoking Status: Former smoker Past Alcohol Use History: Occasional Additional Past Alcohol Use History / Comment(s): QUIT SMOKING 2007, SMOKED FOR 15 YRS , HX 1PPD. Past Drug Use History: None Reported Additional Drug Use History / Comment(s): TRIED CBD OIL - NONE CURRENTLY. - Past Family History Mother Family Medical History: No Reported History Medications and Allergies Home Medications Medication Instructions Recorded Confirmed Type Ascorbic Acid [Vitamin C] 500 mg PO DAILY 10/08/18 06/10/21 History Aspirin [Adult Low Dose Aspirin EC] 81 mg PO DAILY 10/08/18 06/10/21 History Atorvastatin [Lipitor] 20 mg PO HS 10/08/18 06/10/21 History Brimonidine Tartrate/Timolol 1 drop BOTH EYES BID 10/08/18 06/10/21 History [Combigan 0.2%-0.5% Eye Drops] Glucosam/Vel-Msm1/C/Abdullahi/Bosw 1 tab PO BID 10/08/18 06/10/21 History [Gephraybqqz-Rueaifgyupo-ZPV Tb] Meloxicam [Mobic] 7.5 mg PO DAILY 10/08/18 06/10/21 History Metoprolol Succinate (ER) [Toprol 25 mg PO HS 10/08/18 06/10/21 History XL] Multivitamins, Thera [Multivitamin 1 tab PO DAILY 10/08/18 06/10/21 History (formulary)] Turmeric Root Extract [Turmeric] 500 mg PO BID 10/08/18 06/10/21 History Vitamin B Complex 1 cap PO DAILY 10/08/18 06/10/21 History Warfarin [Coumadin] 5 mg PO MOTUWETHFRSA 10/08/18 06/10/21 History lisinopriL 20 mg PO DAILY 10/08/18 06/10/21 History Doxazosin [Cardura] 1 mg PO DAILY 05/15/21 06/10/21 History Gabapentin 300 mg PO BID 5 Days #10 cap 05/23/21 06/10/21 Rx Famotidine [Pepcid] 20 mg PO BID #60 tab 05/24/21 06/10/21 Rx Calcium 300mg With Magnesium 600mg 1 tab PO DAILY 06/10/21 06/10/21 History Calcium Carbonate [Tums] 500 mg PO ACHS PRN 06/10/21 06/10/21 History Cephalexin [Keflex] 500 mg PO QID 06/10/21 06/10/21 History HYDROcodone/APAP 10-325MG [[place] 1 tab PO QID PRN 06/10/21 06/10/21 History 10-325] Psyllium Husk/Aspartame [Metamucil 1.5 tsp PO DAILY 06/10/21 06/10/21 History Sugar-Free Powder] Allergies Allergy/AdvReac Type Severity Reaction Status Date / Time No Known Allergies Allergy Verified 06/10/21 22:07 Physical Exam Vitals: Vital Signs Temp Pulse Pulse Resp BP BP Pulse Ox 06/11/21 08:00 98.4 F 86 20 109/68 97 06/11/21 05:57 98.9 F 98 18 111/67 96 06/11/21 03:51 103 H 17 106/63 95 06/10/21 20:56 99.5 F 117 H 19 97/61 96 06/10/21 16:28 102.8 F H 101 H 18 117/68 96 Intake and Output 06/10/21 06/11/21 06/11/21 22:59 06:59 14:59 Other: Voiding Method Urinal Weight 149.232 kg 149.232 kg Results CBC & Chem 7: 06/11/21 08:21 06/10/21 18:52 Labs: Abnormal Lab Results - Last 24 Hours (Table) 06/10/21 06/10/21 06/10/21 Range/Units 18:52 18:52 18:52 WBC 21.9 H (3.8-10.6) k/uL RBC 3.78 L (4.30-5.90) m/uL Hgb 12.2 L (13.0-17.5) gm/dL Hct 37.6 L (39.0-53.0) % MCV (80.0-100.0) fL Neutrophils # 19.9 H (1.3-7.7) k/uL Lymphocytes # 0.5 L (1.0-4.8) k/uL Monocytes # 1.1 H (0-1.0) k/uL ESR 53 H (0-15) mm/hr PT 17.7 H (9.0-12.0) sec INR 1.8 H (<1.2) APTT 32.6 H (22.0-30.0) sec Sodium (137-145) mmol/L Carbon Dioxide (22-30) mmol/L BUN (9-20) mg/dL Glucose (74-99) mg/dL C-Reactive Protein (<1.0) mg/dL Urine Protein 1+ H (Negative) Urine Blood Trace H (Negative) Amorphous Sediment Rare H (None) /hpf Urine Mucus Many H (None) /hpf 06/10/21 06/11/21 Range/Units 18:52 08:21 WBC 18.5 H (3.8-10.6) k/uL RBC 3.64 L (4.30-5.90) m/uL Hgb 11.8 L (13.0-17.5) gm/dL Hct 37.3 L (39.0-53.0) % MCV 102.3 H (80.0-100.0) fL Neutrophils # 15.1 H (1.3-7.7) k/uL Lymphocytes # (1.0-4.8) k/uL Monocytes # (0-1.0) k/uL ESR (0-15) mm/hr PT (9.0-12.0) sec INR (<1.2) APTT (22.0-30.0) sec Sodium 131 L (137-145) mmol/L Carbon Dioxide 20 L (22-30) mmol/L BUN 24 H (9-20) mg/dL Glucose 137 H (74-99) mg/dL C-Reactive Protein 8.5 H (<1.0) mg/dL Urine Protein (Negative) Urine Blood (Negative) Amorphous Sediment (None) /hpf Urine Mucus (None) /hpf Microbiology - Last 24 Hours (Table) 06/10/21 19:36 Gram Stain - Preliminary Knee - Right Wound Culture - Preliminary Thrombosis Risk Factor Assmnt - Choose All That Apply Each Factor Represents 1 point: History of prior major surgery (<1month), Medical pt on bed rest, Obesity (BMI >25), Swollen legs (current) Other Risk Factors: Yes Each Risk Factor Represents 3 Points: Age 75 years or older, History of DVT/PE Other congenital or acquired thrombophilia - If yes, enter type in comment: Yes Each Risk Factor Represents 5 Points: Elective major lower extremity arthoplasty Thrombosis Risk Factor Assessment Total Risk Factor Score: 15 Thrombosis Risk Factor Assessment Level: High Risk
[2021-06-11] MEDS ORDERED: MELATONIN 3 MG TABLET PO PRN (15:23)
[2021-06-11] MEDS ORDERED: LORazepam 0.5 MG TAB PO PRN (15:23)
[2021-06-11] MEDS ORDERED: LACTULOSE 20 GM/30 ML CUP PO PRN (15:23)
[2021-06-11] MEDS ORDERED: VANCOMYCIN IV PER PHARMACY 1 EACH MISC MISCELLANE PRN (15:25)
[2021-06-11] MEDS ORDERED: SUCCINYLCHOLINE CHLORIDE VIAL 200 MG/10 ML VIAL IV ONE (15:51)
[2021-06-11] MEDS ORDERED: PROPOFOL 10 MG/ML 20 ML VIAL IV ONE (15:51)
[2021-06-11] MEDS ORDERED: fentaNYL (PF) 50 MCG/ML 2 ML AMP ONE (15:51)
[2021-06-11] MEDS ORDERED: MIDAZOLAM 2 MG/2 ML VIAL ONE (15:51)
[2021-06-11] MEDS ORDERED: LIDOCAINE 1% INJ 10MG/ML (20 ML MDV) ONE (15:51)
[2021-06-11] MEDS ORDERED: ceFAZolin 3,000 MG in SODIUM CHLORIDE 0.9% IRRIGATIO 3,000 ML IRRIGATION ONE ×4 (16:03)
[2021-06-11] MEDS ORDERED: LACTATED RINGERS 1,000 ML IV ONE (16:05)
[2021-06-11] MEDS: CEFEPIME 2 GM in SODIUM CHLORIDE 0.9% 100 ML IVPB SCH (16:45)
[2021-06-11] MEDS ORDERED: HYDROmorphone 0.5 MG/0.5 ML SYRINGE IVP PRN (16:53)
[2021-06-11] MEDS ORDERED: SENNOSIDES-DOCUSATE SODIUM 1 EACH TAB PO PRN (16:53)
--- NOTE | 2021-06-11 16:58 | P.OP ---
Date of Procedure: 06/11/21 Preoperative Diagnosis: Septic arthritis right knee Postoperative Diagnosis: Septic arthritis right knee Procedure(s) Performed: Incision and drainage right knee Anesthesia: ELIOT Surgeon: Alan Meeks Estimated Blood Loss (ml): 100 Pathology: other (Cultures 2) Condition: stable Disposition: PACU Indications for Procedure: This is a 76-year-old gentleman that had a total knee arthroplasty performed on May 22. He is subsequently has multiple falls presented to the ER last night with chills and fevers. Patient had elevated white count with purulent drainage from his right knee incision. After discussing the surgical nonsurgical treatment options with him and his at length, I recommended open irrigation debridement of his right knee and informed consent was obtained. The plan is to maintain his prosthesis and just perform an irrigation debridement. Operative Findings: Operative findings are consistent with septic arthritis of the right knee. Description of Procedure: The patient was seen in the preoperative area, consent was reviewed and operative site was marked with a skin marker. Patient was then brought into the operating room and given a general anesthetic by the anesthesia department. A universal timeout was then performed confirming the patient's name, surgical site, ALLERGIES, and consent. The knee was then inspected and found to have significant erythema and some mild purulent drainage distally. The skin edges were still approximated and there was no open wounds. The right knee was then prepped and draped in usual sterile fashion. The prior incision was utilized and opened with a sharp knife. A moderate amount of purulent material was encountered and cultured. There area was then irrigated copiously with antibiotic solution. Incision was then carried down through the patellar tendon into the right knee joint. There is a large amount of purulent fluid encountered. This was cultured This was then irrigated with pulsatile lavage. The knee was then closed over medium suction drain with 3-0 Vicryl for the skin lorin. Patient was then transferred recovery room in stable condition.
[2021-06-11] MEDS: HYDROmorphone 0.5 MG/0.5 ML SYRINGE IVP PRN (19:05)
--- NOTE | 2021-06-11 19:15 | CONS ---
CONSULTATION Mr. Segura is a 76-year-old male who is followed by Dr. Linares and Dr. Silva who presents with discomfort in the right knee and redness. He underwent total knee arthroplasty by Dr. Meeks and has evidence to suggest infection. He is scheduled to undergo an I and D today. He has a known history of coronary artery disease, status post stenting of the LAD and underwent repeat cardiac catheterization in 2019. He was found to have a patent stent to the LAD and intermediate lesion in the left circumflex that had a normal IFR. In the emergency room he was noted to be in atrial fibrillation of unknown duration. Patient does not feel the palpitations. When he was seen by Dr. Silva preoperatively he was in sinus mechanism. He underwent myocardial perfusion imaging at that time that revealed a small area of inducible ischemia with partial reversible defect in the basal inferior wall that was felt could be related to the circumflex, and medical therapy was recommended. The patient has been having progressive dyspnea as well as episodes of chest discomfort, at times exertional in pattern, going on for the last 6 months. He has some peripheral edema but no clear PND or orthopnea. His activity is limited. He has a prior history of DVT and Momo filter placement and he has been on chronic anticoagulation. He does not have any documented history of atrial fibrillation in the past. His coronary risk factors are remarkable for history of hypertension, hyperlipidemia. He is nondiabetic, a nonsmoker. His medications include aspirin once a day, Lipitor 20 mg daily, Cardura, Pepcid, metoprolol succinate 25 mg daily, lisinopril 20 mg daily, Coumadin. REVIEW OF SYSTEMS: RESPIRATORY SYSTEM: He had dyspnea on exertion. No recent wheezing or cough. GI SYSTEM: No recent GI bleeding. No peptic ulcer disease. SYSTEM: No dysuria or hematuria. NERVOUS SYSTEM: No history of stroke or seizure. PHYSICAL EXAMINATION: This is a 76-year-old male, alert, oriented, in no apparent distress. Blood pressure running in the 100s to 110s, heart rate in the 90s. Afebrile at this time. On presentation his temperature was 102.8. HEAD: Normocephalic. EYES: Sclerae anicteric. NECK: Good carotid upstroke. No bruit. LUNGS: No wheezes or rales appreciated. HEART: Irregularly irregular. S1, S2. No S3. With systolic murmur. No diastolic murmur. ABDOMEN: Soft, obese, nontender. EXTREMITIES: Plus 2 edema bilaterally. Redness on the right knee incision site. LAB DATA: INR 1.8, BUN and creatinine of 24 and 0.92, potassium 4.4. His NT proBNP is 958. Troponin less than 0.012. Hemoglobin of 11.8. On presentation, his white blood cell count was 21,900. His EKG revealed atrial fibrillation, rate of 135, normal axis and intervals, nonspecific ST-T wave changes. IMPRESSION: 1. Infectious process at the site of the knee incision surgery, febrile. His surgery was done on May 22. 2. Atrial fibrillation, new since his last visit to the office. 3. History of coronary disease; appears to be stable. 4. Chest discomfort with no evidence of acute coronary syndrome. 5. Hypertension. 6. Hyperlipidemia. 7. History of deep vein thrombosis and [place]wick filter placement, anticoagulated. RECOMMENDATIONS: From the cardiac standpoint, I will obtain an echocardiogram with Doppler to evaluate the left ventricular systolic function. Patient has been anticoagulated and that will be re-initiated after surgery. I will increase the dose of his beta joanne and cut down the dose of lisinopril. It is possible that the atrial fibrillation is related to the acute infectious process. Depending on his progress after the surgery and clearance of his infectious process, he can be re-evaluated regarding the need to undergo zoroastrian of sinus mechanism or just continue rate control. In the meantime, will continue with present therapy. He should be stable to proceed with his I and D scheduled for today to clear his infection. Thank you for this consult. Will follow with you. MMODL / IJN: [id number] /
[2021-06-11] MEDS ORDERED: VANCOMYCIN 2,500 MG in SODIUM CHLORIDE 0.9% 500 ML 500 ML IVPB ONE (20:00)
[2021-06-11] MEDS ORDERED: METOPROLOL SUCCINATE (ER) 25 MG TAB.ER.24H PO SCH (21:00)
[2021-06-11] MEDS: METOPROLOL SUCCINATE (ER) 25 MG TAB.ER.24H PO SCH (21:24)
[2021-06-11] MEDS: ATORVASTATIN 20 MG TAB PO SCH (21:24)
[2021-06-12] MEDS: CEFEPIME 2 GM in SODIUM CHLORIDE 0.9% 100 ML IVPB SCH ×4 (00:58→23:52)
[2021-06-12] MEDS: HYDROmorphone 0.5 MG/0.5 ML SYRINGE IVP PRN ×6 (00:58→22:49)
[2021-06-12 06:05] LABS: Basophils # (A) 0.1 k/uL (0-0.2); Basophils % (A) 0 %; Eosinophils % (A) 0 %; HCT 31.5 % (39.0-53.0); HGB 10.3 gm/dL (13.0-17.5); Hypochromasia Slight; Lymphocytes # (A) 1.3 k/uL (1.0-4.8); Lymphocytes % (A) 10 %; MCH 32.8 pg (25.0-35.0); MCHC 32.8 g/dL (31.0-37.0); Mean Platelet Volume 7.2; Monocytes # (A) 0.8 k/uL (0-1.0); Monocytes % (A) 6 %; Neutrophils # (A) 10.7 k/uL (1.3-7.7); Neutrophils % (A) 82 %; Platelet Count 334 k/uL (150-450); RBC 3.16 m/uL (4.30-5.90); RDW 13.5 % (11.5-15.5)
[2021-06-12 06:22] LABS: African American GFR (CKD) >90 (>60 ml/min/1.73 sqM); Anion Gap 5 mmol/L; Blood Urea Nitrogen 24 mg/dL (9-20); Calcium 8.8 mg/dL (8.4-10.2); Carbon Dioxide 25 mmol/L (22-30); Chloride 103 mmol/L (98-107); Glucose 102 mg/dL (74-99); Non-African American GFR(CKD) 78 (>60 ml/min/1.73 sqM); Potassium 4.9 mmol/L (3.5-5.1); Sodium 133 mmol/L (137-145)
--- NOTE | 2021-06-12 08:07 | P.CONS ---
History of Present Illness - Reason for Consult Consult date: 06/11/21 right knee infection Requesting physician: Homar Fu - Chief Complaint right knee redness and drainage x days - History of Present Illness History of present illness : Patient is 76-year male with a past medical history significant for DVT on (hypertension hyperlipidemia this patient with a right knee arthroplasty done on 1020 patient presenting to the ER for evaluation of shaking chills and confusion per the and this patient symptom has been going on for a day or 2 before presentation to the hospital patient did mention that the day after he did have the surgery he did have a fall related to some bruising of the right knee area patient been complaining of pain to the right knee to be more of a dull aching to sharp about 4-5 out of 10 had no radiation with associated swelling and redness. The patient has been seen at the orthopedic office on 06/15/2021 at that point patient did have a very normal-appearing incision to the right knee area, the next day for started having some drainage from the area for the patient was started on oral Keflex patient did not have any improvement on presentation the hospital the patient had a fever 102.8 F the patient was tachycardic he did have 101.9 has been splinting is 18.5 blood cultures obtained which are currently pending local cultures pending for MRSA pending as well patient was started on Unasyn infectious disease was consulted for further management operative eye therapy patient did have x-rays of the knee which is right knee prosthesis no fracture is seen chest x-ray mild pulmonary fibrotic changes Review of system: CONSTITUTIONAL: Positive for weakness along with the fever. EYES: No complaint. ENT: No complaint. RESPIRATORY: No complaint. CARDIOVASCULAR: No complaint. GENITOURINARY: No complaint. GASTROINTESTINAL: No complaint. MUSCULOSKELETAL: As per history of present illness. INTEGUMENTARY: No complaint. PSYCHOLOGIC: No complaint. ENDOCRINE: No complaint. NEUROLOGIC: No complaint. Past medical history : Reviewed, documented below Past surgical history : Reviewed, documented below Social history: Reviewed, documented below Medications: Reviewed, as documented below EXAMINATION: Vital sigans= Reviewed and documented below GENERAL DESCRIPTION: Elderly male lying in bed, no distress. No tachypnea or accessory muscle of respiration use. HEENT: Shows Pallor , no scleral icterus. Oral mucous membrane is dry. NECK: Trachea central, no thyromegaly. LUNGS: Unlabored breathing. Clear to auscultation anteriorly. No wheeze or crackle. HEART: S1, S2, regular rate and rhythm. ABDOMEN: Soft, no tenderness , guarding or rigidity EXTREMITIES: Right he did have swelling and redness slightly warm to touch and did have purulent drainage. SKIN: No rash, no masses palpable. NEUROLOGICAL: The patient is awake, alert, oriented x3, mood and affect normal. LABS AND RADIOLOGY: Reviewed results see below Assessment : Patient presented to hospital with sepsis and respiratory, fever tachycardia elevated white count versus right knee septic arthritis in this pa tient did have purulent drainage from it and failed outpatient oral Keflex therapy will need to cover for the gram-positive skin lizy underlying gram- negative infection of Taxotere Plan: 1-discontinue Unasyn 2-vancomycin pharmacy to dose with a target trough of 15 while watching kidney function and Vanco trough closely. 3-cefepime 2 g every 8 hours 4-we will wait for the surgery to determine the depth of this infection and drainage of the abscess along with deep culture We will follow on clinical condition and cultures to further adjust medication if needed Thank you for this consultation we will follow the patient along with you Past Medical History Past Medical History: Coronary Artery Disease (CAD), Cancer, Deep Vein Thrombosis (DVT), Eye Disorder, Hyperlipidemia, Hypertension, Myocardial Infarction (AR), Osteoarthritis (OA), Prostate Disorder Additional Past Medical History / Comment(s): skin cancer, glaucoma, DVT x3, colon polyps., BPH., states no blood products-Jehovah Witness. Last Myocardial Infarction Date:: UNKNOWN History of Any Multi-Drug Resistant Organisms: None Reported Past Surgical History: Heart Catheterization With Stent, Orthopedic Surgery Additional Past Surgical History / Comment(s): heart cath with stent (2007), kaity carpal tunnel, MOHS procedure, left eye vitreous hemorrhages, detached retina repair., Trap Ease-permanent vena cava filter (2016), right knee replacement. Past Anesthesia/Blood Transfusion Reactions: Motion Sickness Additional Past Anesthesia/Blood Transfusion Reaction / Comm: NO BLOOD PRODUCTS - JEHOVAH WITNESS. Date of Last Stent Placement:: 2007 Past Psychological History: Anxiety, Depression Smoking Status: Former smoker Past Alcohol Use History: Occasional Additional Past Alcohol Use History / Comment(s): QUIT SMOKING 2007, SMOKED FOR 15 YRS , HX 1PPD. Past Drug Use History: None Reported Additional Drug Use History / Comment(s): TRIED CBD OIL - NONE CURRENTLY. - Past Family History Mother Family Medical History: No Reported History Medications and Allergies Home Medications Medication Instructions Recorded Confirmed Type Ascorbic Acid [Vitamin C] 500 mg PO DAILY 10/08/18 06/10/21 History Aspirin [Adult Low Dose Aspirin EC] 81 mg PO DAILY 10/08/18 06/10/21 History Atorvastatin [Lipitor] 20 mg PO HS 10/08/18 06/10/21 History Brimonidine Tartrate/Timolol 1 drop BOTH EYES BID 10/08/18 06/10/21 History [Combigan 0.2%-0.5% Eye Drops] Glucosam/Vel-Msm1/C/Abdullahi/Bosw 1 tab PO BID 10/08/18 06/10/21 History [Emoxkfenpkh-Amynxamfwcc-QVV Tb] Meloxicam [Mobic] 7.5 mg PO DAILY 10/08/18 06/10/21 History Metoprolol Succinate (ER) [Toprol 25 mg PO HS 10/08/18 06/10/21 History XL] Multivitamins, Thera [Multivitamin 1 tab PO DAILY 10/08/18 06/10/21 History (formulary)] Turmeric Root Extract [Turmeric] 500 mg PO BID 10/08/18 06/10/21 History Vitamin B Complex 1 cap PO DAILY 10/08/18 06/10/21 History Warfarin [Coumadin] 5 mg PO MOTUWETHFRSA 10/08/18 06/10/21 History lisinopriL 20 mg PO DAILY 10/08/18 06/10/21 History Doxazosin [Cardura] 1 mg PO DAILY 05/15/21 06/10/21 History Gabapentin 300 mg PO BID 5 Days #10 cap 05/23/21 06/10/21 Rx Famotidine [Pepcid] 20 mg PO BID #60 tab 05/24/21 06/10/21 Rx Calcium 300mg With Magnesium 600mg 1 tab PO DAILY 06/10/21 06/10/21 History Calcium Carbonate [Tums] 500 mg PO ACHS PRN 06/10/21 06/10/21 History Cephalexin [Keflex] 500 mg PO QID 06/10/21 06/10/21 History HYDROcodone/APAP 10-325MG [[place] 1 tab PO QID PRN 06/10/21 06/10/21 History 10-325] Psyllium Husk/Aspartame [Metamucil 1.5 tsp PO DAILY 06/10/21 06/10/21 History Sugar-Free Powder] Allergies Allergy/AdvReac Type Severity Reaction Status Date / Time No Known Allergies Allergy Verified 06/10/21 22:07 Physical Exam Vitals: Vital Signs Temp Pulse Pulse Resp BP BP Pulse Ox 06/11/21 08:00 98.4 F 86 20 109/68 97 06/11/21 05:57 98.9 F 98 18 111/67 96 06/11/21 03:51 103 H 17 106/63 95 06/10/21 20:56 99.5 F 117 H 19 97/61 96 06/10/21 16:28 102.8 F H 101 H 18 117/68 96 Intake and Output 06/10/21 06/11/21 06/11/21 22:59 06:59 14:59 Other: Voiding Method Urinal Weight 149.232 kg 149.232 kg Results CBC & Chem 7: 06/12/21 05:30 06/12/21 05:30 Labs: Abnormal Lab Results - Last 24 Hours (Table) 06/10/21 06/10/21 06/10/21 Range/Units 18:52 18:52 18:52 WBC 21.9 H (3.8-10.6) k/uL RBC 3.78 L (4.30-5.90) m/uL Hgb 12.2 L (13.0-17.5) gm/dL Hct 37.6 L (39.0-53.0) % MCV (80.0-100.0) fL Neutrophils # 19.9 H (1.3-7.7) k/uL Lymphocytes # 0.5 L (1.0-4.8) k/uL Monocytes # 1.1 H (0-1.0) k/uL ESR 53 H (0-15) mm/hr PT 17.7 H (9.0-12.0) sec INR 1.8 H (<1.2) APTT 32.6 H (22.0-30.0) sec Sodium (137-145) mmol/L Carbon Dioxide (22-30) mmol/L BUN (9-20) mg/dL Glucose (74-99) mg/dL C-Reactive Protein (<1.0) mg/dL Urine Protein 1+ H (Negative) Urine Blood Trace H (Negative) Amorphous Sediment Rare H (None) /hpf Urine Mucus Many H (None) /hpf 06/10/21 06/11/21 Range/Units 18:52 08:21 WBC 18.5 H (3.8-10.6) k/uL RBC 3.64 L (4.30-5.90) m/uL Hgb 11.8 L (13.0-17.5) gm/dL Hct 37.3 L (39.0-53.0) % MCV 102.3 H (80.0-100.0) fL Neutrophils # 15.1 H (1.3-7.7) k/uL Lymphocytes # (1.0-4.8) k/uL Monocytes # (0-1.0) k/uL ESR (0-15) mm/hr PT (9.0-12.0) sec INR (<1.2) APTT (22.0-30.0) sec Sodium 131 L (137-145) mmol/L Carbon Dioxide 20 L (22-30) mmol/L BUN 24 H (9-20) mg/dL Glucose 137 H (74-99) mg/dL C-Reactive Protein 8.5 H (<1.0) mg/dL Urine Protein (Negative) Urine Blood (Negative) Amorphous Sediment (None) /hpf Urine Mucus (None) /hpf Microbiology - Last 24 Hours (Table) 06/10/21 19:36 Gram Stain - Preliminary Knee - Right Wound Culture - Preliminary
[2021-06-12] MEDS: ENOXAPARIN 150 MG/ML SYRINGE SQ SCH ×2 (08:13→20:46)
[2021-06-12] MEDS: ASCORBIC ACID 500 MG TAB PO SCH (08:14)
[2021-06-12] MEDS: MULTIVITAMINS, THERA 1 EACH TAB PO SCH (08:14)
[2021-06-12] MEDS: ASPIRIN 81 MG PO SCH (08:14)
[2021-06-12] MEDS: GABAPENTIN 300 MG CAP PO SCH ×2 (08:15→20:46)
[2021-06-12] MEDS: MELOXICAM 7.5 MG TAB PO SCH (08:15)
[2021-06-12] MEDS: FAMOTIDINE 20 MG TAB PO SCH ×2 (08:15→20:46)
[2021-06-12] MEDS: METOPROLOL SUCCINATE (ER) 25 MG TAB.ER.24H PO SCH (08:15)
[2021-06-12] MEDS: DOXAZOSIN 1 MG TAB PO SCH (08:16)
[2021-06-12] MEDS: BRIMONIDINE TARTRATE 0.2% DROPS 5 ML BTL BOTH EYES SCH ×2 (08:18→20:46)
[2021-06-12] MEDS: TIMOLOL 0.5% OPHTH DROPS 5 ML BTL BOTH EYES SCH ×2 (08:18→20:46)
[2021-06-12] MEDS: VANCOMYCIN 2,500 MG in SODIUM CHLORIDE 0.9% 500 ML 500 ML IVPB SCH ×2 (08:26→20:46)
[2021-06-12] MEDS ORDERED: lisinopriL 10 MG TAB PO SCH (09:00)
--- NOTE | 2021-06-12 09:22 | PN ---
PROGRESS NOTE This is a 76-year-old gentleman with history of atrial fibrillation, right knee replacement who has had infection and had to be admitted for incision and drainage that cardiology is following because of his atrial fibrillation. This morning, patient is feeling fine. Denies any chest pain or difficulty in breathing. He takes Coumadin at home and is currently on Lovenox. We will check and see if is covered for Eliquis and if he is, we can switch him to Eliquis from Coumadin. PHYSICAL EXAMINATION: Heart rate is around 120 beats per minute. Blood pressure is 128/65, respiratory is 18. Chest exam reveals good air entry bilaterally. Heart exam reveals first and second heart sounds, irregular rhythm. No murmur. Examination of extremities did not reveal any edema. The patient is currently on aspirin, Lipitor, Cardura, Zestril 10 daily, Toprol-XL 25 b.i.d. ASSESSMENT AND PLAN: 1. Persistent atrial fibrillation with poorly controlled ventricular rate. 2. History of knee replacement with recent incision and drainage. PLAN: We will find out if Eliquis is covered. If he is, we can switch him from Coumadin to Eliquis. If he is not, then we can give him a dose of Coumadin today and once he becomes therapeutic, stop the Lovenox that he is on. The nurse will find out from orthopedic surgeon if it is okay to resume oral anticoagulants. I am going to decrease the dose of lisinopril to 5 and go up on the dose of Toprol to 50 b.i.d. for better rate control. MMODL / IJN: [id number] /
--- NOTE | 2021-06-12 09:26 | P.PN ---
Subjective Progress Note Date: 06/12/21 This is a 76-year-old male who is status post incision and drainage of the right knee. This is postoperative day #1 and patient is seen and evaluated at bedside today. Patient states that he is doing well and he denies any new complaints today. Objective - Vital Signs Vital signs: Vital Signs Temp 98.5 F 06/12/21 04:00 Pulse 121 H 06/12/21 08:00 Resp 16 06/12/21 08:00 BP 108/65 06/12/21 08:00 Pulse Ox 97 06/12/21 08:00 Intake & Output 06/11/21 06/12/21 06/12/21 18:59 06:59 18:59 Intake Total 701 Output Total 500 630 Balance 201 -630 Weight 149.232 kg Intake: IV 701 Output: Drainage 30 Right Knee 30 Urine 400 600 Estimated Blood Loss 100 Other: Voiding Method Urinal Urinal # Voids 2 - Exam On exam surgical dressing is clean, dry and intact. Drain is intact. Patient has full range of motion of the right foot and ankle. Moderate swelling present. Sensation intact. Neurovascular status and circulatory status are intact. - Labs CBC & Chem 7: 06/12/21 05:30 06/12/21 05:30 Labs: Abnormal Lab Results - Last 24 Hours (Table) 06/12/21 06/12/21 Range/Units 05:30 05:30 WBC 13.0 H (3.8-10.6) k/uL RBC 3.16 L (4.30-5.90) m/uL Hgb 10.3 L (13.0-17.5) gm/dL Hct 31.5 L (39.0-53.0) % Neutrophils # 10.7 H (1.3-7.7) k/uL Sodium 133 L (137-145) mmol/L BUN 24 H (9-20) mg/dL Glucose 102 H (74-99) mg/dL Microbiology - Last 24 Hours (Table) 06/11/21 16:27 Gram Stain - Preliminary Knee - Right Wound Culture - Preliminary 06/11/21 16:27 Gram Stain - Preliminary Knee - Right Wound Culture - Preliminary 06/11/21 16:27 Anaerobic Culture - Preliminary Knee - Right 06/11/21 16:27 Anaerobic Culture - Preliminary Knee - Right 06/10/21 19:36 Gram Stain - Preliminary Knee - Right Wound Culture - Preliminary Gram Neg Bacilli Gram Neg Bacilli#2 06/10/21 18:52 Blood Culture - Preliminary Blood No Growth after 24 hours 06/10/21 18:52 Blood Culture - Preliminary Blood No Growth after 24 hours Assessment and Plan (1) Status post incision and drainage Current Visit: Yes Status: Acute Code(s): Z98.890 - OTHER SPECIFIED POSTPROCEDURAL STATES SNOMED Code(s): 484041052 (2) Septic arthritis of knee, right Current Visit: Yes Status: Acute Code(s): M00.9 - PYOGENIC ARTHRITIS, UNSPECIFIED SNOMED Code(s): 929738867 (3) Infection of right knee Current Visit: Yes Status: Acute Code(s): M00.9 - PYOGENIC ARTHRITIS, UNSPECIFIED SNOMED Code(s): 793951638 (4) Acute DVT (deep venous thrombosis) Current Visit: Yes Status: Acute Code(s): I82.409 - ACUTE EMBOLISM AND THOMBOS UNSP DEEP VN UNSP LOWER EXTREMITY SNOMED Code(s): 155211984488067 (5) New onset atrial fibrillation Current Visit: Yes Status: Acute Code(s): I48.91 - UNSPECIFIED ATRIAL FIBRILLATION SNOMED Code(s): 21667031 Plan: 1. Continue routine postoperative care and pain control. Plan to remove drain tomorrow. 2. Elevate the right lower extremity. 3. Appreciate input from internal medicine and infectious disease. 4. Cultures are pending. Antibiotics per infectious disease. White blood cell count is trending down. Patient is afebrile. 5. Will continue to follow closely.
[2021-06-12] MEDS: HYDROcodone/APAP 10-325MG 1 EACH TAB PO PRN ×2 (09:46→16:27)
[2021-06-12] MEDS: PSYLLIUM HUSK 100% 6 GM PACKET PO SCH (09:48)
--- NOTE | 2021-06-12 14:28 | P.PN ---
Subjective this is a pleasant 76 yo M who presents with septic arthritis of his right knee and he underwent I and D yesterday by orthopedic surgery team, wound culture growing gram-negative bacilli 2 more final culture result is pending also is on antibiotics per ID team recommendation with IV vancomycin and cefepime. Also his courses, complicated by right leg DVT and is currently covered with Lovenox 150 mg twice a day which is therapeutic dose. Patient states that he has history of recurrent left leg DVT and he was on Coumadin prior to hospitaliza tion. Objective - Vital Signs Vital signs: Vital Signs Temp 97.6 F 06/12/21 11:52 Pulse 97 06/12/21 11:52 Resp 17 06/12/21 11:52 BP 109/73 06/12/21 11:52 Pulse Ox 99 06/12/21 11:52 Intake & Output 06/11/21 06/12/21 06/12/21 18:59 06:59 18:59 Intake Total 701 360 Output Total 500 630 Balance 201 -630 360 Weight 149.232 kg Intake: IV 701 Oral 360 Output: Drainage 30 Right Knee 30 Urine 400 600 Estimated Blood Loss 100 Other: Voiding Method Urinal Urinal Urinal # Voids 2 - Exam GENERAL: The patient is alert and oriented x3, not in any acute distress. Well developed, well nourished. HEENT: Pupils are round and equally reacting to light. EOMI. No scleral icterus. No conjunctival pallor. Normocephalic, atraumatic. No pharyngeal erythema. No thyromegaly. CARDIOVASCULAR: S1 and S2 present. No murmurs, rubs, or gallops. PULMONARY: Chest is clear to auscultation, no wheezing or crackles. ABDOMEN: Soft, nontender, nondistended, normoactive bowel sounds. No palpable organomegaly. MUSCULOSKELETAL: No joint swelling or deformity. -EXTREMITIES: No cyanosis, clubbing, or pedal edema. Right lower extremity in a dressing, the drain is in place. Rest of exam is deferred to surgery team NEUROLOGICAL: Gross neurological examination did not reveal any focal deficits. SKIN: No rashes. no petechiae. - Labs CBC & Chem 7: 06/12/21 05:30 06/12/21 05:30 Labs: Abnormal Lab Results - Last 24 Hours (Table) 06/12/21 06/12/21 Range/Units 05:30 05:30 WBC 13.0 H (3.8-10.6) k/uL RBC 3.16 L (4.30-5.90) m/uL Hgb 10.3 L (13.0-17.5) gm/dL Hct 31.5 L (39.0-53.0) % Neutrophils # 10.7 H (1.3-7.7) k/uL Sodium 133 L (137-145) mmol/L BUN 24 H (9-20) mg/dL Glucose 102 H (74-99) mg/dL Microbiology - Last 24 Hours (Table) 06/11/21 16:27 Gram Stain - Preliminary Knee - Right Wound Culture - Preliminary 06/11/21 16:27 Gram Stain - Preliminary Knee - Right Wound Culture - Preliminary 06/11/21 16:27 Anaerobic Culture - Preliminary Knee - Right 06/11/21 16:27 Anaerobic Culture - Preliminary Knee - Right 06/10/21 19:36 Gram Stain - Preliminary Knee - Right Wound Culture - Preliminary Gram Neg Bacilli Gram Neg Bacilli#2 06/10/21 18:52 Blood Culture - Preliminary Blood No Growth after 24 hours 06/10/21 18:52 Blood Culture - Preliminary Blood No Growth after 24 hours Assessment and Plan Assessment: -Acute infection of the right knee incision with pus drainage, following the stitches opening up secondary to a fall -Right total knee arthroplasty done on May [address] Alan Meeks. -New onset atrial fibrillation with rapid ventricular rate -CAD with stent in 2007 -Hyperlipidemia -Essential hypertension -Primary osteoarthritis -BPH -Chronic recurrent DVT 3 -Morbid obesity BMI 44. -Acute blood loss anemia as expected from surgery -GERD Plan: This is a pleasant 76 years old male who presents with right septic knee status post I&D. Continue with IV vancomycin and cefepime per ID team and follow-up final results of the wound culture. Orthopedic team on the case. Continue with Lovenox for bridging and start Coumadin pharmacy to dose. Cardiology consult for new onset A. fib, currently heart rate is controlled without beta joanne or Cardizem Labs and medication were reviewed.. Continue same treatment. Continue with symptomatic treatment. Resume home medication. Monitor lytes and vitals. DVT and GI prophylaxis. Further recommendationsas per clinical course of the patient DVT prophylaxis: Subcutaneous Lovenox, and Coumadin GI Prophylaxis: Pepcid PT/OT: Pending, per orthopedic team Prognosis is guarded
[2021-06-12 16:28] LABS: INR 1.7 (<1.2); Prothrombin Time 16.8 sec (9.0-12.0)
[2021-06-12] MEDS ORDERED: WARFARIN 5 MG TAB PO ONE (18:00)
[2021-06-12] MEDS: ATORVASTATIN 20 MG TAB PO SCH (20:46)
[2021-06-12] MEDS ORDERED: METOPROLOL SUCCINATE (ER) 50 MG TAB.ER.24H PO SCH (21:00)
--- NOTE | 2021-06-12 23:04 | PN ---
PROGRESS NOTE DATE OF SERVICE: 06/12/2021 REASON FOR FOLLOWUP: Right knee septic arthritis. INTERVAL HISTORY: The patient is afebrile. The patient is breathing comfortably. The patient is status post right knee washout procedure that was completed yesterday. Patient tolerated the procedure. Pain is currently controlled. The patient denies having any chest pain, shortness of breath or cough. No abdominal pain or diarrhea. PHYSICAL EXAMINATION: Blood pressure 120/76 pulse 105, temperature 97.6. He is 94% on room air. General description is an elderly male lying in bed in no distress. Respiratory system: Unlabored breathing. Clear to auscultation anteriorly. Heart S1, S2. Regular rate and rhythm. Abdomen soft, no tenderness. Right knee is currently dressed. No obvious drainage on the dressing. LABS: Wound culture is showing an E coli and Pseudomonas. DIAGNOSTIC IMPRESSION AND PLAN: Patient with right knee septic arthritis in this patient who is status post right knee washout. Patient to continue on cefepime. He will need a PICC line for at 6 weeks of IV antibiotic therapy. Discontinue vancomycin and continue supportive care. MMODL / IJN: [id number] /
[2021-06-13] MEDS: HYDROmorphone 0.5 MG/0.5 ML SYRINGE IVP PRN ×5 (03:05→23:37)
[2021-06-13] MEDS: HYDROcodone/APAP 10-325MG 1 EACH TAB PO PRN ×4 (05:53→23:36)
[2021-06-13 07:00] LABS: Basophils % (A) 0 %; Eosinophils # (A) 0.1 k/uL (0-0.7); Eosinophils % (A) 1 %; HCT 31.2 % (39.0-53.0); HGB 10.2 gm/dL (13.0-17.5); Hypochromasia Slight; Lymphocytes # (A) 1.4 k/uL (1.0-4.8); Lymphocytes % (A) 15 %; MCH 32.5 pg (25.0-35.0); MCHC 32.7 g/dL (31.0-37.0); MCV 99.5 fL (80.0-100.0); Mean Platelet Volume 7.2; Monocytes # (A) 0.7 k/uL (0-1.0); Monocytes % (A) 8 %; Neutrophils % (A) 75 %; Platelet Count 361 k/uL (150-450); RBC 3.13 m/uL (4.30-5.90); RDW 13.4 % (11.5-15.5); WBC 9.4 k/uL (3.8-10.6)
[2021-06-13 07:08] LABS: INR 1.6 (<1.2); Prothrombin Time 15.6 sec (9.0-12.0)
[2021-06-13] MEDS ORDERED: METOPROLOL SUCCINATE (ER) 50 MG TAB.ER.24H PO STA (07:09)
[2021-06-13 07:36] LABS: African American GFR (CKD) >90 (>60 ml/min/1.73 sqM); Anion Gap 4 mmol/L; Blood Urea Nitrogen 13 mg/dL (9-20); Calcium 8.5 mg/dL (8.4-10.2); Carbon Dioxide 26 mmol/L (22-30); Chloride 103 mmol/L (98-107); Glucose 107 mg/dL (74-99); Non-African American GFR(CKD) 88 (>60 ml/min/1.73 sqM); Potassium 4.1 mmol/L (3.5-5.1); Sodium 133 mmol/L (137-145)
[2021-06-13] MEDS: GABAPENTIN 300 MG CAP PO SCH ×2 (08:08→20:27)
[2021-06-13] MEDS: ASPIRIN 81 MG PO SCH (08:08)
[2021-06-13] MEDS: DOXAZOSIN 1 MG TAB PO SCH (08:08)
[2021-06-13] MEDS: lisinopriL 5 MG TAB PO SCH (08:08)
[2021-06-13] MEDS: MULTIVITAMINS, THERA 1 EACH TAB PO SCH (08:09)
[2021-06-13] MEDS: MELOXICAM 7.5 MG TAB PO SCH (08:09)
[2021-06-13] MEDS: ASCORBIC ACID 500 MG TAB PO SCH (08:09)
[2021-06-13] MEDS: FAMOTIDINE 20 MG TAB PO SCH ×2 (08:09→20:27)
[2021-06-13] MEDS: PSYLLIUM HUSK 100% 6 GM PACKET PO SCH (08:10)
[2021-06-13] MEDS: TIMOLOL 0.5% OPHTH DROPS 5 ML BTL BOTH EYES SCH ×2 (08:10→20:29)
[2021-06-13] MEDS: BRIMONIDINE TARTRATE 0.2% DROPS 5 ML BTL BOTH EYES SCH ×2 (08:10→20:29)
[2021-06-13] MEDS: CEFEPIME 2 GM in SODIUM CHLORIDE 0.9% 100 ML IVPB SCH ×3 (08:13→23:38)
[2021-06-13] MEDS ORDERED: APIXABAN 5 MG TAB PO SCH (09:00)
--- NOTE | 2021-06-13 10:28 | P.PN ---
Subjective Progress Note Date: 06/13/21 This is a 76-year-old male who is status post incision and drainage of the right knee. This is postoperative day #2 and patient is seen and evaluated at bedside today. Patient states that he is doing well and he denies any new complaints today. Objective - Vital Signs Vital signs: Vital Signs Temp 98.3 F 06/13/21 08:00 Pulse 120 H 06/13/21 08:00 Resp 16 06/13/21 08:00 BP 107/62 06/13/21 08:00 Pulse Ox 98 06/13/21 08:00 Intake & Output 06/12/21 06/13/21 06/13/21 18:59 06:59 18:59 Intake Total 1420 118 Output Total 965 895 Balance 455 -895 118 Weight 145.1 kg Intake: Intake, IV Titration 700 Amount Cefepime 2 gm In Sodium 200 Chloride 0.9% 100 ml @ 25 mls/hr IVPB Q8HR NATHANIEL Rx# :[id number] Vancomycin 2,500 mg In 500 Sodium Chloride 0.9% 500 ml 500 ml @ 167 mls/hr IVPB Q12HR NATHANIEL Rx#: [id number] Oral 720 118 Output: Drainage 15 20 Right Knee 15 20 Urine 950 875 Other: Voiding Method Urinal Urinal # Voids 2 - Exam On exam surgical dressing and drain are removed. Surgical clips are intact. There is mild bloody drainage from the incision and drain site. Patient has full range of motion of the right foot and ankle. Moderate swelling present. Sensation intact. Neurovascular status and circulatory status are intact. - Labs CBC & Chem 7: 06/13/21 06:09 06/13/21 06:09 Labs: Abnormal Lab Results - Last 24 Hours (Table) 06/12/21 06/13/21 06/13/21 Range/Units 15:34 06:09 06:09 RBC 3.13 L (4.30-5.90) m/uL Hgb 10.2 L (13.0-17.5) gm/dL Hct 31.2 L (39.0-53.0) % PT 16.8 H (9.0-12.0) sec INR 1.7 H (<1.2) Sodium 133 L (137-145) mmol/L Glucose 107 H (74-99) mg/dL 06/13/21 Range/Units 06:09 RBC (4.30-5.90) m/uL Hgb (13.0-17.5) gm/dL Hct (39.0-53.0) % PT 15.6 H (9.0-12.0) sec INR 1.6 H (<1.2) Sodium (137-145) mmol/L Glucose (74-99) mg/dL Microbiology - Last 24 Hours (Table) 06/10/21 18:52 Blood Culture - Preliminary Blood No Growth after 48 hours 06/10/21 18:52 Blood Culture - Preliminary Blood No Growth after 48 hours 06/11/21 16:27 Gram Stain - Preliminary Knee - Right Wound Culture - Preliminary Gram Neg Bacilli 06/11/21 16:27 Gram Stain - Preliminary Knee - Right Wound Culture - Preliminary Gram Neg Bacilli 06/10/21 19:36 Gram Stain - Final Knee - Right Wound Culture - Final Escherichia coli Pseudomonas aeruginosa Assessment and Plan (1) Status post incision and drainage Current Visit: Yes Status: Acute Code(s): Z98.890 - OTHER SPECIFIED PO STPROCEDURAL STATES SNOMED Code(s): 866717653 (2) Septic arthritis of knee, right Current Visit: Yes Status: Acute Code(s): M00.9 - PYOGENIC ARTHRITIS, UNSPECIFIED SNOMED Code(s): 364668881 (3) Infection of right knee Current Visit: Yes Status: Acute Code(s): M00.9 - PYOGENIC ARTHRITIS, UNSPECIFIED SNOMED Code(s): 402330637 (4) Acute DVT (deep venous thrombosis) Current Visit: Yes Status: Acute Code(s): I82.409 - ACUTE EMBOLISM AND THOMBOS UNSP DEEP VN UNSP LOWER EXTREMITY SNOMED Code(s): 131541251854375 (5) New onset atrial fibrillation Current Visit: Yes Status: Acute Code(s): I48.91 - UNSPECIFIED ATRIAL FIBRILLATION SNOMED Code(s): 75698545 Plan: 1. Continue routine postoperative care and pain control. Daily dressing changes or as often as needed to keep clean and dry. 2. Elevate the right lower extremity. 3. Appreciate input from internal medicine and infectious disease. 4. Cultures are positive for E. coli and pseudomonas. Antibiotics per infectious disease. Patient is awaiting PICC line placement. 5. White blood cell count is within normal limits. Patient is afebrile. 6. Will continue to follow closely.
--- NOTE | 2021-06-13 11:56 | P.PN ---
Subjective this is a pleasant 76 yo M who presents with septic arthritis of his right knee and he underwent I and D yesterday by orthopedic surgery team, wound culture growing gram-negative bacilli 2 more final culture result is pending also is on antibiotics per ID team recommendation with IV vancomycin and cefepime. Also his courses, complicated by right leg DVT and is currently covered with Lovenox 150 mg twice a day which is therapeutic dose. Patient states that he has history of recurrent left leg DVT and he was on Coumadin prior to hospitaliza tion. 06/13/2021 Patient lying in chair in bed comfortable, no distress. His right knee and leg pain is controlled. During still in place. Patient does not have any other specific complaints. His WBC is back to normal at 9.4, hemoglobin is at 10. And his anticoagulation is a switch. Eliquis. Patient remains on IV vancomycin and cefepime. He continues on lisinopril, doxepin and metoprolol 50 mg. Once culture is growing E. coli and Pseudomonas, both of them are sensitive. Repeat urine culture is still pending final results. Patient remains on IV vancomycin and cefepime. Objective - Vital Signs Vital signs: Vital Signs Temp 98.3 F 06/13/21 08:00 Pulse 120 H 06/13/21 08:00 Resp 16 06/13/21 08:00 BP 107/62 06/13/21 08:00 Pulse Ox 98 06/13/21 08:00 Intake & Output 06/12/21 06/13/21 06/13/21 18:59 06:59 18:59 Intake Total 1420 118 Output Total 965 895 Balance 455 -895 118 Weight 145.1 kg Intake: Intake, IV Titration 700 Amount Cefepime 2 gm In Sodium 200 Chloride 0.9% 100 ml @ 25 mls/hr IVPB Q8HR [facility] Rx# :[id number] Vancomycin 2,500 mg In 500 Sodium Chloride 0.9% 500 ml 500 ml @ 167 mls/hr IVPB Q12HR [facility] Rx#: [id number] Oral 720 118 Output: Drainage 15 20 Right Knee 15 20 Urine 950 875 Other: Voiding Method Urinal Urinal Urinal # Voids 2 - Exam GENERAL: The patient is alert and oriented x3, not in any acute distress. Well developed, well nourished. HEENT: Pupils are round and equally reacting to light. EOMI. No scleral icterus. No conjunctival pallor. Normocephalic, atraumatic. No pharyngeal erythema. No thyromegaly. CARDIOVASCULAR: S1 and S2 present. No murmurs, rubs, or gallops. PULMONARY: Chest is clear to auscultation, no wheezing or crackles. ABDOMEN: Soft, nontender, nondistended, normoactive bowel sounds. No palpable organomegaly. MUSCULOSKELETAL: No joint swelling or deformity. -EXTREMITIES: No cyanosis, clubbing, or pedal edema. Right lower extremity in a dressing, the drain is in place. Rest of exam is deferred to surgery team NEUROLOGICAL: Gross neurological examination did not reveal any focal deficits. SKIN: No rashes. no petechiae. - Labs CBC & Chem 7: 06/13/21 06:09 06/13/21 06:09 Labs: Abnormal Lab Results - Last 24 Hours (Table) 06/12/21 06/13/21 06/13/21 Range/Units 15:34 06:09 06:09 RBC 3.13 L (4.30-5.90) m/uL Hgb 10.2 L (13.0-17.5) gm/dL Hct 31.2 L (39.0-53.0) % PT 16.8 H (9.0-12.0) sec INR 1.7 H (<1.2) Sodium 133 L (137-145) mmol/L Glucose 107 H (74-99) mg/dL 06/13/21 Range/Units 06:09 RBC (4.30-5.90) m/uL Hgb (13.0-17.5) gm/dL Hct (39.0-53.0) % PT 15.6 H (9.0-12.0) sec INR 1.6 H (<1.2) Sodium (137-145) mmol/L Glucose (74-99) mg/dL Microbiology - Last 24 Hours (Table) 06/10/21 18:52 Blood Culture - Preliminary Blood No Growth after 48 hours 06/10/21 18:52 Blood Culture - Preliminary Blood No Growth after 48 hours 06/11/21 16:27 Gram Stain - Preliminary Knee - Right Wound Culture - Preliminary Gram Neg Bacilli 06/11/21 16:27 Gram Stain - Preliminary Knee - Right Wound Culture - Preliminary Gram Neg Bacilli 06/10/21 19:36 Gram Stain - Final Knee - Right Wound Culture - Final Escherichia coli Pseudomonas aeruginosa Assessment and Plan Assessment: -Acute infection of the right knee incision with pus drainage, following the stitches opening up secondary to a fall -Right total knee arthroplasty done on May [address] Alan Meeks. -New onset atrial fibrillation with rapid ventricular rate -CAD with stent in 2007 -Hyperlipidemia -Essential hypertension -Primary osteoarthritis -BPH -Chronic recurrent DVT 3 -Morbid obesity BMI 44. -Acute blood loss anemia as expected from surgery -GERD Plan: This is a pleasant 76 years old male who presents with right septic knee status post I&D. Continue with IV vancomycin and cefepime per ID team and follow-up final results of the wound culture. Orthopedic team on the case. Continue with Lovenox for bridging and start Coumadin pharmacy to dose. Cardiology consult for new onset A. fib, currently heart rate is controlled without beta joanne or Cardizem Labs and medication were reviewed.. Continue same treatment. Continue with symptomatic treatment. Resume home medication. Monitor lytes and vitals. DVT and GI prophylaxis. Further recommendationsas per clinical course of the patient DVT prophylaxis: Subcutaneous Lovenox, and Coumadin GI Prophylaxis: Pepcid PT/OT: Pending, per orthopedic team Prognosis is guarded
--- NOTE | 2021-06-13 13:12 | P.PN ---
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 He follows in the office with Dr. Silva. We're following the patient for new onset atrial fibrillation with rapid ventricular response. Patient presented to the hospital with fever and chills. Found to have an infection to his right total knee arthroplasty. Echocardiogram 04/26/2021 the office revealed EF 5560 percent, mild aortic regurgitation, mild aortic stenosis, mild mitral regurgitation, moderate tricuspid regurgitation 06/13/21 Patient seen and examined at bedside, no acute distress. Telemetry reviewed atrial fibrillation with heart rates [id number]. Patient has been switched to Eliquis 5 mg twice a day. He is also maintained on aspirin 81 mg daily, atorvastatin 20 mg nightly, metoprolol succinate 25 mg twice a day. Labs reviewed. Vitals reviewed. GENERAL: Well-appearing, well-nourished and in no acute distress. NECK: Supple without JVD or thyromegaly. LUNGS: Breath sounds clear to auscultation bilaterally. Respiration equal and unlabored. No wheezes, rales or rhonchi. HEART: Irregular rate and rhythm without murmurs, rubs or gallops. S1 and S2 heard. EXTREMITIES: Normal range of motion, no edema. No clubbing or cyanosis. Peripheral pulses intact. ASSESSMENT Paroxysmal atrial fibrillation with rapid ventricular response History of total knee arthroplasty with infection and recent incision and drainage History of coronary artery disease status post stenting to the LAD History of hypertension History of hyperlipidemia History of DVT status post [place] filter placement PLAN Increase metoprolol succinate to 50mg BID Continue Eliquis 5mg BID Continue cardiac telemetry Continue statin, aspirin. Further recommendations based on clinical course Nurse Practitioner note has been reviewed, I agree with a documented findings and plan of care. Patient was seen and examined. Objective - Vital Signs Vital signs: Vital Signs Temp 98.3 F 06/13/21 08:00 Pulse 107 H 06/13/21 12:00 Resp 16 06/13/21 12:00 BP 117/79 06/13/21 12:00 Pulse Ox 100 06/13/21 12:00 Intake & Output 06/12/21 06/13/21 06/13/21 18:59 06:59 18:59 Intake Total 1420 118 Output Total 965 895 Balance 455 -895 118 Weight 145.1 kg Intake: Intake, IV Titration 700 Amount Cefepime 2 gm In Sodium 200 Chloride 0.9% 100 ml @ 25 mls/hr IVPB Q8HR [facility] Rx# :[id number] Vancomycin 2,500 mg In 500 Sodium Chloride 0.9% 500 ml 500 ml @ 167 mls/hr IVPB Q12HR [facility] Rx#: [id number] Oral 720 118 Output: Drainage 15 20 Right Knee 15 20 Urine 950 875 Other: Voiding Method Urinal Urinal Urinal # Voids 2 - Labs CBC & Chem 7: 06/13/21 06:09 06/13/21 06:09 Labs: Abnormal Lab Results - Last 24 Hours (Table) 06/12/21 06/13/21 06/13/21 Range/Units 15:34 06:09 06:09 RBC 3.13 L (4.30-5.90) m/uL Hgb 10.2 L (13.0-17.5) gm/dL Hct 31.2 L (39.0-53.0) % PT 16.8 H (9.0-12.0) sec INR 1.7 H (<1.2) Sodium 133 L (137-145) mmol/L Glucose 107 H (74-99) mg/dL 06/13/21 Range/Units 06:09 RBC (4.30-5.90) m/uL Hgb (13.0-17.5) gm/dL Hct (39.0-53.0) % PT 15.6 H (9.0-12.0) sec INR 1.6 H (<1.2) Sodium (137-145) mmol/L Glucose (74-99) mg/dL Microbiology - Last 24 Hours (Table) 06/10/21 18:52 Blood Culture - Preliminary Blood No Growth after 48 hours 06/10/21 18:52 Blood Culture - Preliminary Blood No Growth after 48 hours 06/11/21 16:27 Gram Stain - Preliminary Knee - Right Wound Culture - Preliminary Gram Neg Bacilli 06/11/21 16:27 Gram Stain - Preliminary Knee - Right Wound Culture - Preliminary Gram Neg Bacilli 06/10/21 19:36 Gram Stain - Final Knee - Right Wound Culture - Final Escherichia coli Pseudomonas aeruginosa
[2021-06-13] MEDS: ATORVASTATIN 20 MG TAB PO SCH (20:26)
[2021-06-13] MEDS: METOPROLOL SUCCINATE (ER) 50 MG TAB.ER.24H PO SCH (20:27)
[2021-06-13] MEDS ORDERED: METOPROLOL SUCCINATE (ER) 50 MG TAB.ER.24H PO SCH (21:00)
--- NOTE | 2021-06-13 22:23 | PN ---
PROGRESS NOTE DATE OF SERVICE: 06/13/2021 REASON FOR FOLLOWUP: Right knee septic arthritis. INTERVAL HISTORY: The patient is afebrile. The patient is breathing comfortably. The patient denies having any chest pain or shortness of breath or cough. Denies any abdominal pain. No diarrhea. Pain to the right knee is currently controlled. PHYSICAL EXAMINATION: Blood pressure 145/76, pulse of 93, temperature 97.6. He is 97% room air. General description is an elderly male lying in bed in no distress. Respiratory system: Unlabored breathing. Clear to auscultation anteriorly. Heart S1, S2. Regular rate and rhythm. Abdomen soft, no tenderness. Right knee is currently dressed. No obvious drainage on the dressing. LABS: Hemoglobin is 10.9, white count normalized to 9.4, creatinine 0.78. DIAGNOSTIC IMPRESSION AND PLAN: Patient with right knee septic arthritis. Superficial culture has been positive for E coli and Pseudomonas. Deep culture is showing E coli only. Patient is covered with cefepime; to continue. Plan is for 6 weeks of antibiotics and close outpatient followup. The patient and had multiple questions. Those were answered in layman's terms. MMODL / IJN: [id number] /
[2021-06-14] MEDS: HYDROmorphone 0.5 MG/0.5 ML SYRINGE IVP PRN ×5 (02:38→23:21)
[2021-06-14] MEDS: METOPROLOL SUCCINATE (ER) 50 MG TAB.ER.24H PO SCH ×2 (08:18→21:19)
[2021-06-14] MEDS: HYDROcodone/APAP 10-325MG 1 EACH TAB PO PRN ×3 (08:18→21:20)
[2021-06-14] MEDS: ASPIRIN 81 MG PO SCH (08:18)
[2021-06-14] MEDS: MELOXICAM 7.5 MG TAB PO SCH (08:18)
[2021-06-14] MEDS: FAMOTIDINE 20 MG TAB PO SCH ×2 (08:18→21:21)
[2021-06-14] MEDS: GABAPENTIN 300 MG CAP PO SCH ×2 (08:18→21:19)
[2021-06-14] MEDS: ASCORBIC ACID 500 MG TAB PO SCH (08:19)
[2021-06-14] MEDS: BRIMONIDINE TARTRATE 0.2% DROPS 5 ML BTL BOTH EYES SCH ×2 (08:19→21:24)
[2021-06-14] MEDS: PSYLLIUM HUSK 100% 6 GM PACKET PO SCH (08:19)
[2021-06-14] MEDS: CEFEPIME 2 GM in SODIUM CHLORIDE 0.9% 100 ML IVPB SCH ×3 (08:19→23:22)
[2021-06-14] MEDS: MULTIVITAMINS, THERA 1 EACH TAB PO SCH (08:19)
[2021-06-14] MEDS: lisinopriL 5 MG TAB PO SCH (08:19)
[2021-06-14] MEDS: TIMOLOL 0.5% OPHTH DROPS 5 ML BTL BOTH EYES SCH ×2 (08:20→21:24)
[2021-06-14 08:43] LABS: INR 1.4 (<1.2); Prothrombin Time 13.9 sec (9.0-12.0)
[2021-06-14 08:45] LABS: African American GFR (CKD) >90 (>60 ml/min/1.73 sqM); Anion Gap 3 mmol/L; Blood Urea Nitrogen 14 mg/dL (9-20); Calcium 8.9 mg/dL (8.4-10.2); Carbon Dioxide 28 mmol/L (22-30); Chloride 103 mmol/L (98-107); Glucose 98 mg/dL (74-99); Non-African American GFR(CKD) 85 (>60 ml/min/1.73 sqM); Sodium 134 mmol/L (137-145)
[2021-06-14] MEDS ORDERED: LIDOCAINE 1% INJ 10MG/ML (20 ML MDV) ONE (10:18)
[2021-06-14] MEDS ORDERED: LIDOCAINE 1% INJ 10MG/ML (20 ML MDV) SQ ONE (10:42)
--- NOTE | 2021-06-14 11:04 | P.PN ---
Subjective Progress Note Date: 06/14/21 This patient is a 76-year-old male who is status-post right knee I&D on 06/11/[address] Meeks. Patient is also status-post right knee total arthroplasty on 05/22/21. Today is post-operative day #3. He is seen and examined bedside. He is currently up to the bedside chair. He is awaiting a PICC line. He states overall he is feeling well and having minimal pain in the right knee. He is having no new complaints today. Vital signs stable. He is afebrile. Objective - Vital Signs Vital signs: Vital Signs Temp 98.1 F 06/14/21 08:00 Pulse 98 06/14/21 08:00 Resp 16 06/14/21 08:00 BP 115/71 06/14/21 08:00 Pulse Ox 98 06/14/21 08:00 Intake & Output 06/13/21 06/14/21 06/14/21 18:59 06:59 18:59 Intake Total 558 Output Total 1085 600 Balance 558 -1085 -600 Intake: Intake, IV Titration 200 Amount Cefepime 2 gm In Sodium 200 Chloride 0.9% 100 ml @ 25 mls/hr IVPB Q8HR [facility] Rx# :[id number] Oral 358 Output: Urine 1085 600 Other: Voiding Method Urinal Urinal Urinal - Exam On examination, the patient sitting up in a bedside chair in no apparent distress. He is alert and orientated x3. On inspection of the right knee, there is a surgical dressing in place. The dressing is removed and reveals a healing incision of the anterior knee with intact lorin. No active drainage. Mild eryt riley. Patient has good strength and ROM of the right ankle and toes. Motor and sensory function is intact of the right lower extremity. Dorsalis pedis pulse +2, the right lower extremity is warm and well-perfused with brisk capillary refill distally. A new dressing in placed. - Labs CBC & Chem 7: 06/13/21 06:09 06/14/21 07:00 Labs: Abnormal Lab Results - Last 24 Hours (Table) 06/14/21 06/14/21 Range/Units 07:00 07:00 PT 13.9 H (9.0-12.0) sec INR 1.4 H (<1.2) Sodium 134 L (137-145) mmol/L Microbiology - Last 24 Hours (Table) 06/10/21 18:52 Blood Culture - Preliminary Blood No Growth after 72 hours 06/10/21 18:52 Blood Culture - Preliminary Blood No Growth after 72 hours 06/11/21 16:27 Gram Stain - Final Knee - Right Wound Culture - Final Escherichia coli 06/11/21 16:27 Anaerobic Culture - Preliminary Knee - Right Assessment and Plan Assessment: Right knee septic arthritic status-post I&D 06/11/21 Status-post right total knee arthroplasty 05/22/21 New onset atrial fibrillation Acute DVT RLE Plan: - Dressing was changed today. Patient should continue to have daily dressing changes to the right knee. - PICC line and antibiotics per infectious disease. Cultures showing E. Coli and Pseudomonas. - Keep RLE elevated for swelling control. - Medical management per internal medicine, cardiology, infectious disease. - We will follow patient closely.
[2021-06-14] MEDS ORDERED: METOPROLOL SUCCINATE (ER) 25 MG TAB.ER.24H PO STA (11:18)
--- NOTE | 2021-06-14 11:44 | P.PN ---
Subjective this is a pleasant 76 yo M who presents with septic arthritis of his right knee and he underwent I and D yesterday by orthopedic surgery team, wound culture growing gram-negative bacilli 2 more final culture result is pending also is on antibiotics per ID team recommendation with IV vancomycin and cefepime. Also his courses, complicated by right leg DVT and is currently covered with Lovenox 150 mg twice a day which is therapeutic dose. Patient states that he has history of recurrent left leg DVT and he was on Coumadin prior to hospitaliza tion. 06/13/2021 Patient lying in chair in bed comfortable, no distress. His right knee and leg pain is controlled. During still in place. Patient does not have any other specific complaints. His WBC is back to normal at 9.4, hemoglobin is at 10. And his anticoagulation is a switch. Eliquis. Patient remains on IV vancomycin and cefepime. He continues on lisinopril, doxepin and metoprolol 50 mg. Once culture is growing E. coli and Pseudomonas, both of them are sensitive. Repeat urine culture is still pending final results. Patient remains on IV vancomycin and cefepime. 06/14/2021 Patient is awake and alert, he was complaining of from his pain in his right leg area this morning. However there is no discoloration or new swelling. Most likely is related to his infection and his DVT in the right leg. We'll continue treatment symptomatically. Also this also been treated for septic right knee arthritis and is currently on IV vancomycin and cefepime. With plan for him to get IV antibiotic for 6 weeks upon discharge per infectious disease recommendation. Also orthopedic team are following the patient closely. Patient is expected to go to [facility] for rehab upon discharge and he agrees. For his A. fib and RVR was slightly uncontrolled today with a heart rate 100- 120. Patient is already on metoprolol 50 mg, Cardizem 30 mg 3 times a day added by cyber incident analyst. Patient is currently covered with Eliquis for his history of A. fib. Objective - Vital Signs Vital signs: Vital Signs Temp 98.1 F 06/14/21 08:00 Pulse 98 06/14/21 08:00 Resp 16 06/14/21 08:00 BP 115/71 06/14/21 08:00 Pulse Ox 98 06/14/21 08:00 Intake & Output 06/13/21 06/14/21 06/14/21 18:59 06:59 18:59 Intake Total 558 Output Total 1085 600 Balance 558 -1085 -600 Intake: Intake, IV Titration 200 Amount Cefepime 2 gm In Sodium 200 Chloride 0.9% 100 ml @ 25 mls/hr IVPB Q8HR [facility] Rx# :[id number] Oral 358 Output: Urine 1085 600 Other: Voiding Method Urinal Urinal Urinal - Exam GENERAL: The patient is alert and oriented x3, not in any acute distress. Well developed, well nourished. HEENT: Pupils are round and equally reacting to light. EOMI. No scleral icterus. No conjunctival pallor. Normocephalic, atraumatic. No pharyngeal erythema. No thyromegaly. CARDIOVASCULAR: S1 and S2 present. No murmurs, rubs, or gallops. PULMONARY: Chest is clear to auscultation, no wheezing or crackles. ABDOMEN: Soft, nontender, nondistended, normoactive bowel sounds. No palpable organomegaly. MUSCULOSKELETAL: No joint swelling or deformity. -EXTREMITIES: No cyanosis, clubbing, or pedal edema. Right lower extremity in a dressing, the drain is in place. Rest of exam is deferred to surgery team NEUROLOGICAL: Gross neurological examination did not reveal any focal deficits. SKIN: No rashes. no petechiae. - Labs CBC & Chem 7: 06/13/21 06:09 06/14/21 07:00 Labs: Abnormal Lab Results - Last 24 Hours (Table) 06/14/21 06/14/21 Range/Units 07:00 07:00 PT 13.9 H (9.0-12.0) sec INR 1.4 H (<1.2) Sodium 134 L (137-145) mmol/L Microbiology - Last 24 Hours (Table) 06/10/21 18:52 Blood Culture - Preliminary Blood No Growth after 72 hours 06/10/21 18:52 Blood Culture - Preliminary Blood No Growth after 72 hours 06/11/21 16:27 Gram Stain - Final Knee - Right Wound Culture - Final Escherichia coli 06/11/21 16:27 Anaerobic Culture - Preliminary Knee - Right Assessment and Plan Assessment: -Acute infection of the right knee incision with pus drainage, following the stitches opening up secondary to a fall -Right total knee arthroplasty done on May [address] Alan Meeks. -New onset atrial fibrillation with rapid ventricular rate -CAD with stent in 2007 -Hyperlipidemia -Essential hypertension -Primary osteoarthritis -BPH -Chronic recurrent DVT 3 -Morbid obesity BMI 44. -Acute blood loss anemia as expected from surgery -GERD Plan: This is a pleasant 76 years old male who presents with right septic knee status post I&D. Continue with IV vancomycin and cefepime per ID team and follow-up final results of the wound culture. Orthopedic team on the case. Continue with Lovenox for bridging and start Coumadin pharmacy to dose. Cardiology consult for new onset A. fib, currently heart rate is controlled without beta joanne or Cardizem Labs and medication were reviewed.. Continue same treatment. Continue with symptomatic treatment. Resume home medication. Monitor lytes and vitals. DVT and GI prophylaxis. Further recommendationsas per clinical course of the patient DVT prophylaxis: Subcutaneous Lovenox, and Coumadin GI Prophylaxis: Pepcid PT/OT: Pending, per orthopedic team Prognosis is guarded
--- NOTE | 2021-06-14 11:52 | P.PN ---
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 He follows in the office with Dr. Silva. We're following the patient for new onset atrial fibrillation with rapid ventricular response. Patient presented to the hospital with fever and chills. Found to have an infection to his right total knee arthroplasty. Echocardiogram 04/26/2021 the office revealed EF 5560 percent, mild aortic regurgitation, mild aortic stenosis, mild mitral regurgitation, moderate tricuspid regurgitation 06/14/21 Patient seen and examined at bedside, no acute distress. Telemetry reviewed atrial fibrillation with heart rates 90s-120s Patient has been switched to Eliquis 5 mg twice a day. He is also maintained on aspirin 81 mg daily, atorvastatin 20 mg nightly, metoprolol succinate 25 mg twice a day. Labs reviewed. Vitals reviewed. GENERAL: Well-appearing, well-nourished and in no acute distress. NECK: Supple without JVD or thyromegaly. LUNGS: Breath sounds clear to auscultation bilaterally. Respiration equal and unlabored. No wheezes, rales or rhonchi. HEART: Irregular rate and rhythm without murmurs, rubs or gallops. S1 and S2 heard. EXTREMITIES: Normal range of motion, no edema. No clubbing or cyanosis. Peripheral pulses intact. Right knee bandage with drain noted . ASSESSMENT Paroxysmal atrial fibrillation with rapid ventricular response History of total knee arthroplasty with infection and recent incision and drainage History of coronary artery disease status post stenting to the LAD History of hypertension History of hyperlipidemia History of DVT status post [place] filter placement PLAN Add Cardizem 30mg TID Continue metoprolol succinate to 50mg BID Continue Eliquis 5mg BID Continue statin, aspirin. From a cardiology perspective, patient can be discharged once cleared by primary and other consultations. Follow up with Dr. Silva in 1-2 weeks. Nurse Practitioner note has been reviewed, I agree with a documented findings and plan of care. Patient was seen and examined. Objective - Vital Signs Vital signs: Vital Signs Temp 98.1 F 06/14/21 08:00 Pulse 98 06/14/21 08:00 Resp 16 06/14/21 08:00 BP 115/71 06/14/21 08:00 Pulse Ox 98 06/14/21 08:00 Intake & Output 06/13/21 06/14/21 06/14/21 18:59 06:59 18:59 Intake Total 558 Output Total 1085 600 Balance 558 -1085 -600 Intake: Intake, IV Titration 200 Amount Cefepime 2 gm In Sodium 200 Chloride 0.9% 100 ml @ 25 mls/hr IVPB Q8HR [facility] Rx# :[id number] Oral 358 Output: Urine 1085 600 Other: Voiding Method Urinal Urinal Urinal - Labs CBC & Chem 7: 06/13/21 06:09 06/14/21 07:00 Labs: Abnormal Lab Results - Last 24 Hours (Table) 06/14/21 06/14/21 Range/Units 07:00 07:00 PT 13.9 H (9.0-12.0) sec INR 1.4 H (<1.2) Sodium 134 L (137-145) mmol/L Microbiology - Last 24 Hours (Table) 06/10/21 18:52 Blood Culture - Preliminary Blood No Growth after 72 hours 06/10/21 18:52 Blood Culture - Preliminary Blood No Growth after 72 hours 06/11/21 16:27 Gram Stain - Final Knee - Right Wound Culture - Final Escherichia coli 06/11/21 16:27 Anaerobic Culture - Preliminary Knee - Right
[2021-06-14] MEDS: DILTIAZEM ORAL 30 MG TAB PO SCH ×3 (12:29→23:26)
[2021-06-14] MEDS: DOXAZOSIN 1 MG TAB PO SCH (12:30)
--- NOTE | 2021-06-14 14:15 | PN ---
PROGRESS NOTE DATE OF SERVICE: 06/14/2021 REASON FOR FOLLOWUP: Right knee septic arthritis. INTERVAL HISTORY: The patient is afebrile. The patient is breathing comfortably. Denies any chest pain, shortness of breath or cough. No abdominal pain. Pain to the right knee is currently controlled. PHYSICAL EXAMINATION: Blood pressure 115/71 with a pulse of 98, temperature 98.1. He is 98% on room air. General description is an elderly male lying in bed in no distress. Respiratory system: Unlabored breathing. Clear to auscultation anteriorly. Heart S1, S2. Regular rate and rhythm. Abdomen soft, no tenderness. Right knee is currently dressed. No obvious drainage on the dressing. LABS: White count normal at 9.4, creatinine 0.95. DIAGNOSTIC IMPRESSION AND PLAN: Patient with right knee septic arthritis and abscess, status post drainage of the abscess. Deep culture positive for E coli. However, superficial culture was positive for E coli and Pseudomonas. Patient is covered with cefepime. Plan is for antibiotic followed by oral suppressive therapy. They had multiple questions and concerns that were answered. MMODL / IJN: [id number] /
[2021-06-14] MEDS: ATORVASTATIN 20 MG TAB PO SCH (21:20)
[2021-06-14] MEDS: APIXABAN 5 MG TAB PO SCH (21:20)
[2021-06-15] MEDS: HYDROmorphone 0.5 MG/0.5 ML SYRINGE IVP PRN ×2 (03:27→08:45)
[2021-06-15] MEDS: HYDROcodone/APAP 10-325MG 1 EACH TAB PO PRN ×2 (05:40→12:02)
[2021-06-15 05:45] VITALS: TEMP 98.2
[2021-06-15] MEDS: DILTIAZEM ORAL 30 MG TAB PO SCH (08:45)
[2021-06-15] MEDS: MELOXICAM 7.5 MG TAB PO SCH (08:45)
[2021-06-15] MEDS: ASPIRIN 81 MG PO SCH (08:46)
[2021-06-15] MEDS: lisinopriL 5 MG TAB PO SCH (08:46)
[2021-06-15] MEDS: METOPROLOL SUCCINATE (ER) 50 MG TAB.ER.24H PO SCH (08:46)
[2021-06-15] MEDS: FAMOTIDINE 20 MG TAB PO SCH (08:46)
[2021-06-15] MEDS: APIXABAN 5 MG TAB PO SCH (08:46)
[2021-06-15] MEDS: CEFEPIME 2 GM in SODIUM CHLORIDE 0.9% 100 ML IVPB SCH (08:46)
[2021-06-15] MEDS: MULTIVITAMINS, THERA 1 EACH TAB PO SCH (08:46)
[2021-06-15] MEDS: GABAPENTIN 300 MG CAP PO SCH (08:46)
[2021-06-15] MEDS: PSYLLIUM HUSK 100% 6 GM PACKET PO SCH (08:46)
[2021-06-15] MEDS: ASCORBIC ACID 500 MG TAB PO SCH (08:46)
[2021-06-15] MEDS: BRIMONIDINE TARTRATE 0.2% DROPS 5 ML BTL BOTH EYES SCH (08:47)
[2021-06-15] MEDS: DOXAZOSIN 1 MG TAB PO SCH (08:48)
[2021-06-15] MEDS: TIMOLOL 0.5% OPHTH DROPS 5 ML BTL BOTH EYES SCH (08:48)
[2021-06-15 10:57] VITALS: RESP 16
--- NOTE | 2021-06-15 11:05 | P.PN ---
Subjective Progress Note Date: 06/15/21 This is a 76-year-old male who is status post incision and drainage of the right knee. This is postoperative day #3 and patient is seen and evaluated at bedside today. Patient states that he is doing well and he denies any new complaints today. Objective - Vital Signs Vital signs: Vital Signs Temp 98.2 F 06/15/21 04:00 Pulse 129 H 06/15/21 08:00 Resp 16 06/15/21 08:00 BP 106/80 06/15/21 08:00 Pulse Ox 98 06/15/21 08:00 Intake & Output 06/14/21 06/15/21 06/15/21 18:59 06:59 18:59 Intake Total 325 118 Output Total 600 400 Balance -275 -400 118 Intake: Intake, IV Titration 200 Amount Cefepime 2 gm In Sodium 200 Chloride 0.9% 100 ml @ 25 mls/hr IVPB Q8HR [facility] Rx# :[id number] Oral 125 118 Output: Urine 600 400 Other: Voiding Method Urinal Urinal Urinal - Exam On exam dressing is clean, dry and intact. Surgical clips are intact. There is mild bloody drainage from the incision. Patient has full range of motion of the right foot and ankle. Moderate swelling present. Sensation intact. Neurovascular status and circulatory status are intact. - Labs CBC & Chem 7: 06/13/21 06:09 06/15/21 10:10 Labs: Microbiology - Last 24 Hours (Table) 06/11/21 16:27 Gram Stain - Final Knee - Right Wound Culture - Final Escherichia coli 06/10/21 18:52 Blood Culture - Preliminary Blood No Growth after 96 hours 06/10/21 18:52 Blood Culture - Preliminary Blood No Growth after 96 hours Assessment and Plan (1) Status post incision and drainage Current Visit: Yes Status: Acute Code(s): Z98.890 - OTHER SPECIFIED POSTPROCEDURAL STATES SNOMED Code(s): 166819320 (2) Septic arthritis of knee, right Current Visit: Yes Status: Acute Code(s): M00.9 - PYOGENIC ARTHRITIS, U NSPECIFIED SNOMED Code(s): 947981173 (3) Infection of right knee Current Visit: Yes Status: Acute Code(s): M00.9 - PYOGENIC ARTHRITIS, UNSPECIFIED SNOMED Code(s): 674315472 (4) Acute DVT (deep venous thrombosis) Current Visit: Yes Status: Acute Code(s): I82.409 - ACUTE EMBOLISM AND THOMBOS UNSP DEEP VN UNSP LOWER EXTREMITY SNOMED Code(s): 877245544783850 (5) New onset atrial fibrillation Current Visit: Yes Status: Acute Code(s): I48.91 - UNSPECIFIED ATRIAL FIBRILLATION SNOMED Code(s): 45932565 Plan: 1. Continue routine postoperative care and pain control. Daily dressing changes or as often as needed to keep clean and dry. 2. Elevate the right lower extremity. 3. Appreciate input from internal medicine and infectious disease. 4. Cultures are positive for E. coli and pseudomonas. Patient received his PICC line. Antibiotics per infectious disease. 5. Patient is cleared for discharge from an orthopedic standpoint.
[2021-06-15 12:34] VITALS: BP 120/72; PULSE 95
[2021-06-15 12:45] VITALS: BMI 44.6
--- NOTE | 2021-06-15 12:56 | P.PN ---
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 He follows in the office with Dr. Silva. We're following the patient for new onset atrial fibrillation with rapid ventricular response. Patient presented to the hospital with fever and chills. Found to have an infection to his right total knee arthroplasty. Echocardiogram 04/26/2021 the office revealed EF 5560 percent, mild aortic regurgitation, mild aortic stenosis, mild mitral regurgitation, moderate tricuspid regurgitation 06/15/21 Patient seen and examined at bedside, no acute distress. Telemetry reviewed atrial fibrillation with heart rates better controlled 90s-low 100s. Patient has been switched to Eliquis 5 mg twice a day. Cardizem 30mg TID was started yesterday. He is also maintained on aspirin 81 mg daily, atorvastatin 20 mg ni ghtly, metoprolol succinate 25 mg twice a day. Labs reviewed. Vitals reviewed. GENERAL: Well-appearing, well-nourished and in no acute distress. NECK: Supple without JVD or thyromegaly. LUNGS: Breath sounds clear to auscultation bilaterally. Respiration equal and unlabored. No wheezes, rales or rhonchi. HEART: Irregular rate and rhythm without murmurs, rubs or gallops. S1 and S2 heard. EXTREMITIES: Normal range of motion, no edema. No clubbing or cyanosis. Peripheral pulses intact. Right knee bandage with drain noted . ASSESSMENT Paroxysmal atrial fibrillation with rapid ventricular response History of total knee arthroplasty with infection and recent incision and drainage History of coronary artery disease status post stenting to the LAD History of hypertension History of hyperlipidemia History of DVT status post Campbell filter placement PLAN Continue Cardizem 30mg TID Continue metoprolol succinate to 50mg BID Continue Eliquis 5mg BID Continue statin, aspirin. From a cardiology perspective, patient can be discharged once cleared by primary and other consultations. Follow up with Dr. Silva in 1-2 weeks. Nurse Practitioner note has been reviewed, I agree with a documented findings and plan of care. Patient was seen and examined. Objective - Vital Signs Vital signs: Vital Signs Temp 98.2 F 06/15/21 04:00 Pulse 95 06/15/21 12:00 Resp 16 12/23/21 12:00 BP 120/72 06/15/21 12:00 Pulse Ox 98 06/15/21 12:00 Intake & Output 06/14/21 06/15/21 06/15/21 18:59 06:59 18:59 Intake Total 325 118 Output Total 600 400 Balance -275 -400 118 Weight 145.1 kg Intake: Intake, IV Titration 200 Amount Cefepime 2 gm In Sodium 200 Chloride 0.9% 100 ml @ 25 mls/hr IVPB Q8HR [facility] Rx# :[id number] Oral 125 118 Output: Urine 600 400 Other: Voiding Method Urinal Urinal Urinal - Labs CBC & Chem 7: 06/13/21 06:09 06/15/21 10:10 Labs: Microbiology - Last 24 Hours (Table) 06/11/21 16:27 Gram Stain - Final Knee - Right Wound Culture - Final Escherichia coli 06/10/21 18:52 Blood Culture - Preliminary Blood No Growth after 96 hours 06/10/21 18:52 Blood Culture - Preliminary Blood No Growth after 96 hours
[2021-06-15] MEDS ORDERED: APIXABAN 5 MG TAB PO ONE (14:15)
--- NOTE | 2021-06-15 14:57 | P.CONS ---
History of Present Illness - Reason for Consult Consult date: 06/15/21 transition to eliquis from coumadin Requesting physician: [facility] E Sheet - Chief Complaint fever, DVT - History of Present Illness We have been asked to see Mr. Segura for transition of coumadin to eliquis. Pt has been on coumadin "long time" for Hx DVT, denies any history of a-fib. Review of Systems No current bleeding reported Past Medical History Past Medical History: Coronary Artery Disease (CAD), Cancer, Deep Vein Thrombosis (DVT), Eye Disorder, Hyperlipidemia, Hypertension, Myocardial Infarc tion ([place]), Osteoarthritis (OA), Prostate Disorder Additional Past Medical History / Comment(s): skin cancer, glaucoma, DVT x3, colon polyps., BPH., states no blood products-Jehovah Witness. Last Myocardial Infarction Date:: UNKNOWN History of Any Multi-Drug Resistant Organisms: None Reported Past Surgical History: Heart Catheterization With Stent, Orthopedic Surgery Additional Past Surgical History / Comment(s): heart cath with stent (2007), kaity carpal tunnel, MOHS procedure, left eye vitreous hemorrhages, detached retina repair., Trap Ease-permanent vena cava filter (2015), right knee replacement. Past Anesthesia/Blood Transfusion Reactions: Motion Sickness Additional Past Anesthesia/Blood Transfusion Reaction / Comm: NO BLOOD PRODUCTS - JEHOVAH WITNESS. Date of Last Stent Placement:: 2007 Past Psychological History: Anxiety, Depression Smoking Status: Former smoker Past Alcohol Use History: Occasional Additional Past Alcohol Use History / Comment(s): QUIT SMOKING 2007, SMOKED FOR 15 YRS , HX 1PPD. Past Drug Use History: None Reported Additional Drug Use History / Comment(s): TRIED CBD OIL - NONE CURRENTLY. - Past Family History Mother Family Medical History: No Reported History Medications and Allergies Home Medications Medication Instructions Recorded Confirmed Type Ascorbic Acid [Vitamin C] 500 mg PO DAILY 10/08/18 06/10/21 History Aspirin [Adult Low Dose Aspirin EC] 81 mg PO DAILY 10/08/18 06/10/21 History Atorvastatin [Lipitor] 20 mg PO HS 10/08/18 06/10/21 History Brimonidine Tartrate/Timolol 1 drop BOTH EYES BID 10/08/18 06/10/21 History [Combigan 0.2%-0.5% Eye Drops] Glucosam/Vel-Msm1/C/Abdullahi/Bosw 1 tab PO BID 10/08/18 06/10/21 History [Cvwcekfnalq-Gfwggpmgljf-ERH Tb] Doxazosin [Cardura] 1 mg PO DAILY 05/15/21 06/10/21 History Gabapentin 300 mg PO BID 5 Days #10 cap 05/23/21 06/10/21 Rx Famotidine [Pepcid] 20 mg PO BID #60 tab 05/24/21 06/10/21 Rx Calcium 300mg With Magnesium 600mg 1 tab PO DAILY 06/10/21 06/10/21 History Calcium Carbonate [Tums] 500 mg PO ACHS PRN 06/10/21 06/10/21 History HYDROcodone/APAP 10-325MG [[place] 1 tab PO QID PRN 06/10/21 06/10/21 History 10-325] Psyllium Husk/Aspartame [Metamucil 1.5 tsp PO DAILY 06/10/21 06/10/21 History Sugar-Free Powder] Cefepime [Maxipime] 2 gm IVPB Q8H #120 each 06/14/21 Rx Diltiazem Oral [Cardizem*] 30 mg PO TID 30 Days #90 tab 06/14/21 Rx Metoprolol Succinate [Toprol XL] 50 mg PO BID 30 Days #60 tab 06/14/21 Rx lisinopriL [Zestril] 5 mg PO DAILY 30 Days #30 tab 06/14/21 Rx Apixaban [Eliquis] 5 mg PO DIRECTED #60 tablet 06/15/21 Rx Allergies Allergy/AdvReac Type Severity Reaction Status Date / Time No Known Allergies Allergy Verified 06/10/21 22:07 Physical Exam Vitals: Vital Signs Temp Pulse Resp BP Pulse Ox 06/15/21 12:00 95 16 120/72 98 06/15/21 08:00 129 H 16 106/80 98 06/15/21 04:00 98.2 F 88 18 115/74 97 06/15/21 02:00 92 20 06/15/21 00:00 98.3 F 92 20 120/72 97 06/14/21 20:00 98.8 F 118 H 20 127/75 97 06/14/21 16:00 107 H 16 128/89 97 Intake and Output 06/14/21 06/15/21 06/15/21 22:59 06:59 14:59 Intake Total 325 236 Output Total 200 200 Balance 125 -200 236 Intake: Intake, IV Titration 200 Amount Cefepime 2 gm In Sodium 200 Chloride 0.9% 100 ml @ 25 mls/hr IVPB Q8HR [facility] Rx# :[id number] Oral 125 236 Output: Urine 200 200 Other: Voiding Method Urinal Urinal Urinal Weight 145.1 kg - Constitutional General appearance: cooperative, no acute distress, obese - EENT Eyes: anicteric sclerae, edentulous ENT: hearing grossly normal - Respiratory resp even and unlabored at rest - Neurologic Neurologic: CNII-XII intact (grossly) - Psychiatric Psychiatric: A&O x's 3, appropriate affect, intact judgment & insight Results CBC & Chem 7: 06/13/21 06:09 06/15/21 10:10 Labs: Microbiology - Last 24 Hours (Table) 06/11/21 16:27 Gram Stain - Final Knee - Right Wound Culture - Final Escherichia coli 06/10/21 18:52 Blood Culture - Preliminary Blood No Growth after 96 hours 06/10/21 18:52 Blood Culture - Preliminary Blood No Growth after 96 hours Venous US: report reviewed Assessment and Plan (1) Acute DVT (deep venous thrombosis) Narrative/Plan: Asked to see pt for recommendations to transition from coumadin to eliquis. Once INR <2 begin eliquis, loading dose 10mg PO BID for 7 days then decrease dose to 5mg PO BID. Current Visit: Yes Status: Acute Priority: High Code(s): I82.409 - ACUTE EMBOLISM AND THOMBOS UNSP DEEP VN UNSP LOWER EXTREMITY SNOMED Code(s): 322981234131979
--- NOTE | 2021-06-15 15:43 | PN ---
PROGRESS NOTE DATE OF SERVICE: 06/15/2021 REASON FOR FOLLOWUP: Right knee septic arthritis, Pseudomonas and E coli. INTERVAL HISTORY: The patient is afebrile. The patient's discharge is currently put on hold because of his . The patient denies having any chest pain or shortness of breath or cough. No abdominal pain or diarrhea. Pain to the right knee is currently controlled. PHYSICAL EXAMINATION: Blood pressure 120/72 with a pulse of 95, temperature 98.2. He is 98% on room air. General description is an elderly male up in the bed in no distress. Respiratory system: Unlabored breathing, clear to auscultation anteriorly. Heart S1, S2. Regular rate and rhythm. Abdomen soft, no tenderness. Right knee is currently dressed. No obvious drainage on the dressing. LABS: Potassium is 4.9. DIAGNOSTIC IMPRESSION AND PLAN: Patient with right knee septic arthritis, status post right knee washout. Deep culture positive for E coli. Unfortunately, superficial culture is also showing Pseudomonas. Patient is on cefepime 2 grams q.12 for 6 weeks. Close outpatient followup. Multiple questions were answered. MMODL / IJN: [id number] /
--- NOTE | 2021-06-20 12:02 | CDI ---
Documentation Clarification Form Date: 06/20/2021 10:42:00 AM From: Jania Goodwin Admit Date: 06/10/2021 09:55:00 PM Patient Name: Emery Segura Visit Number: [id number] Discharge Date: 06/15/2021 03:11:00 PM ATTENTION: The Clinical Documentation Specialists (CDI) and [facility] Coding Staff appreciate your assistance in clarifying documentation. Please respond to the clarification below the line at the bottom and electronically sign. The CDI & [facility] Coding staff will review the response and follow-up if needed. Please note: Queries are made part of the Legal Health Record. If you have any questions, please contact the author of this message via ITS. Dr. Guo, Per ID consult and ED note patient presented to hospital with sepsis. The diagnosis of sepsis is not carried through chart, only septic arthritis. Please clarify if patient had sepsis or was it ruled out. History/Risk Factors: Repeated falls post TKR with stitches opening and infection. Patient with fever, tachycardic. purulent drainage E coli and pseudomonas. Clinical Indicators: WBC: 21.9 Lactic acid: 1.2 Vitals signs: 102.8 F, 101 bpm, 18, 117/68, 95% RA Treatment: Vancomycin pharmacy to dose with target trough of 15, Cefepime 2 g Q 8 hours ID Consult: Sepsis versus septic knee arthritis Antibiotics: Vancomycin Cefepime In your professional opinion, please clarify if these findings signify one of the following conditions: [ ] Sepsis POA [ ] Sepsis, Not POA [ ] Sepsis ruled out [ ] Septic arthritis only [ ] Other, please specify [ ] Unable to determine SIRS Criteria: 2 or more of the following may indicate SIRS -Temperature < 96.8F (36C) or > 101.0F (38.3C) -Heart Rate > 90 bpm -Respiratory Rate > 20 breaths/min or PaCO2 < 32 mmHg -White Blood Cell Count > 12,000 or < 4,000 cells/mm3 or > 10% bands Sepsis CAROL JOLLEY
== END 2021-06-15 15:11 | disposition home health service (06) | DRG 862 ==
LOC: EC 16:16 → 3SCARD 21:55
PROVIDERS: ADMIT Hospitalist; ATTEND Hospitalist
PROC: 0S9C0ZX Drainage of Right Knee Joint, Open Approach, Diagnostic (ICD-10-PCS; principal; 2021-06-11 16:00)
PROC: 3E1U38Z Irrigation of Joints using Irrigating Substance, Percutaneous Approach (ICD-10-PCS; principal; 2021-06-11 16:00)
PROC: 02HV33Z Insertion of Infusion Device into Superior Vena Cava, Percutaneous Approach (ICD-10-PCS; 2021-06-14)
DX: T81.40XA Infection following a procedure, unspecified, initial encounter (principal); A41.50 Gram-negative sepsis, unspecified; M00.9 Pyogenic arthritis, unspecified; D62 Acute posthemorrhagic anemia; Z68.41 Body mass index [BMI] 40.0-44.9, adult; I48.19 Other persistent atrial fibrillation; I82.401 Acute embolism and thrombosis of unspecified deep veins of right lower extremity; L03.115 Cellulitis of right lower limb; B96.20 Unspecified Escherichia coli [E. coli] as the cause of diseases classified elsewhere; K21.9 Gastro-esophageal reflux disease without esophagitis; E66.01 Morbid (severe) obesity due to excess calories; Z20.822 Contact with and (suspected) exposure to COVID-19; E78.5 Hyperlipidemia, unspecified; F32.A Depression, unspecified; F41.9 Anxiety disorder, unspecified; I08.3 Combined rheumatic disorders of mitral, aortic and tricuspid valves; I10 Essential (primary) hypertension; I25.10 Atherosclerotic heart disease of native coronary artery without angina pectoris; I25.2 Old myocardial infarction; M19.91 Primary osteoarthritis, unspecified site; N40.0 Benign prostatic hyperplasia without lower urinary tract symptoms; Z95.828 Presence of other vascular implants and grafts; R29.6 Repeated falls; H40.9 Unspecified glaucoma; R79.1 Abnormal coagulation profile; Z91.81 History of falling; S80.01XA Contusion of right knee, initial encounter; Z79.01 Long term (current) use of anticoagulants; Z79.1 Long term (current) use of non-steroidal anti-inflammatories (NSAID); Z79.82 Long term (current) use of aspirin; Z79.899 Other long term (current) drug therapy; Z85.828 Personal history of other malignant neoplasm of skin; Z86.718 Personal history of other venous thrombosis and embolism; Z86.010 Personal history of colon polyps; Z87.891 Personal history of nicotine dependence; Z95.5 Presence of coronary angioplasty implant and graft; Z96.651 Presence of right artificial knee joint; Z98.890 Other specified postprocedural states
CPT/HCPCS: 36415; 36573; 71046; 80048; 80053; 81001; 83605; 83880; 84132; 84443; 84484; 85025; 85610; 85652; 85730; 86140; 87040; 87070; 87075; 87077; 87186; 87205; 87636; 93005; 94760; 96374; 96375; 99285

== ENCOUNTER → 2022-06-04 | Outpatient (CLI) | payer MEDICARE ==
[2022-06-04 17:53] LABS: Basophils # (A) 0.03 X 10*3/uL (0.00-0.10); Basophils % (A) 0.2 %; Eosinophils # (A) 0.02 X 10*3/uL (0.04-0.35); Eosinophils % (A) 0.2 %; HCT 45.7 % (39.6-50.0); HGB 15.5 g/dL (13.0-17.0); Immature Grans, Automated 0.6 %; Lymphocytes # (A) 1.97 X 10*3/uL (0.90-5.00); Lymphocytes % (A) 15.5 %; MCHC 33.9 g/dL (32.0-37.0); MCV 91.4 fL (80.0-97.0); Mean Platelet Volume 10.2 fL (9.5-12.2); Monocytes # (A) 1.06 X 10*3/uL (0.20-1.00); Monocytes % (A) 8.4 %; NRBC Per 100 WBC 0 /100 WBCS (0.0-0.0); Neutrophils # (A) 9.52 X 10*3/uL (1.80-7.70); Neutrophils % (A) 75.1 %; Platelet Count 220 X 10*3/uL (140-440); RDW 13.8 % (11.5-14.5); WBC 12.68 X 10*3/uL (4.50-10.00)
[2022-06-04 18:06] LABS: BUN/Creat Ratio 17.43 Ratio (12.00-20.00); Blood Urea Nitrogen 18.3 mg/dL (9.0-27.0); C Reactive Protein <0.30 mg/dL (0.00-0.80); Carbon Dioxide 26.3 mmol/L (20.0-27.5); Chloride 102 mmol/L (96-109); Glucose 99 mg/dL (70-110); Non-African American GFR(CKD) 68.1 (60.0-200.0); Potassium 5.3 mmol/L (3.5-5.5); Sodium 137 mmol/L (135-145)
[2022-06-04 18:22] LABS: Erythrocyte Sedimentation Rate 6 mm/Hr (0-20)
== END | disposition home or self-care (01) ==
LOC: LABWHC1 11:10
PROVIDERS: ATTEND Internal Medicine Infectious Disease
DX: M00.861 Arthritis due to other bacteria, right knee (principal); Z79.01 Long term (current) use of anticoagulants
CPT/HCPCS: 36415; 80048; 85025; 85652; 86140

== ENCOUNTER 2022-12-05 13:17 | Observation (INO) | payer MEDICARE ==
[2022-12-05] MEDS ORDERED: NITROGLYCERIN OINT 1 INCH/GM PACKET TOPICAL STA (13:42)
[2022-12-05] MEDS ORDERED: ASPIRIN 81 MG PO STA (13:42)
--- NOTE | 2022-12-05 13:49 | ED ---
General Adult HPI - General Chief complaint: Chest Pain Stated complaint: Chest Pain Sent by Time Seen by Provider: 12/05/22 13:30 Source: patient, RN notes reviewed, old records reviewed Mode of arrival: ambulatory Limitations: no limitations - History of Present Illness Initial comments: This is a 77-year-old male presents emergency Department past medical history significant for coronary artery disease with one stent patient also has high blood pressure high cost felt. Patient comes in today because he is complaining of significant chest pressure with shortness of breath and some diaphoretic episodes for the last 6 days per patient states the pain is pretty constant however is worse with lying down flat in improved with sitting up and leaning forward. Patient denies any fever chills or cough that are new. Patient denies any headache patient denies lightheadedness dizziness. Patient denies abdominal pain patient denies nausea vomiting diarrhea. - Related Data Home Medications Medication Instructions Recorded Confirmed Ascorbic Acid [Vitamin C] 500 mg PO DAILY 10/08/18 12/05/22 Aspirin [Adult Low Dose Aspirin EC] 81 mg PO DAILY 10/08/18 12/05/22 Atorvastatin [Lipitor] 20 mg PO HS 10/08/18 12/05/22 Brimonidine Tartrate/Timolol 1 drop BOTH EYES BID 10/08/18 12/05/22 [Combigan 0.2%-0.5% Eye Drops] Glucosam/Vel-Msm1/C/Abdullahi/Bosw 1 tab PO BID 10/08/18 12/05/22 [Sgwngtixiaw-Qztnkdokmax-MBN Tb] Doxazosin [Cardura] 1 mg PO DAILY 05/15/21 12/05/22 HYDROcodone/APAP 10-325MG [[place] 1 tab PO Q6H PRN 06/10/21 12/05/22 10-325] ALPRAZolam [Xanax] 0.5 mg PO TID PRN 12/05/22 12/05/22 Apixaban [Eliquis] 5 mg PO BID 12/05/22 12/05/22 Calcium/Magnesium/Vit D3/[place] 1 cap PO DAILY 12/05/22 12/05/22 [Calcium-Mag Oxide-Vit D3 Sftgl] Ciprofloxacin HCl [Cipro] 500 mg PO BID 12/05/22 12/05/22 Furosemide [Lasix] 20 mg PO DAILY 12/05/22 12/05/22 Metoprolol Succinate (ER) [Toprol 25 mg PO BID 12/05/22 12/05/22 Xl] Multivitamins, Thera [Multivitamin 1 tab PO DAILY 12/05/22 12/05/22 (formulary)] Nitroglycerin Sl Tabs [Nitrostat] 0.4 mg SUBLINGUAL Q5M PRN 12/05/22 12/05/22 Tamsulosin [Flomax] 0.4 mg PO AC-BRKFST 12/05/22 12/05/22 Turmeric Root Extract [Turmeric 500 mg PO BID 12/05/22 12/05/22 Curcumin] Vitamin B Complex 1 cap PO DAILY 12/05/22 12/05/22 Previous Rx's Medication Instructions Recorded Diltiazem Oral [Cardizem*] 30 mg PO TID 30 Days #90 tab 06/14/21 lisinopriL [Zestril] 5 mg PO DAILY 30 Days #30 tab 06/14/21 Allergies Allergy/AdvReac Type Severity Reaction Status Date / Time No Known Allergies Allergy Verified 12/05/22 14:58 Review of Systems ROS Statement: Those systems with pertinent positive or pertinent negative responses have been documented in the HPI. ROS Other: All systems not noted in ROS Statement are negative. Past Medical History Past Medical History: Coronary Artery Disease (CAD), Cancer, Deep Vein Thrombosis (DVT), Eye Disorder, Hyperlipidemia, Hypertension, Myocardial Infarction ([place]), Osteoarthritis (OA), Prostate Disorder Additional Past Medical History / Comment(s): skin cancer, glaucoma, DVT x3, colon polyps., BPH., states no blood products-Jehovah Witness. Last Myocardial Infarction Date:: UNKNOWN History of Any Multi-Drug Resistant Organisms: None Reported Past Surgical History: Heart Catheterization With Stent, Orthopedic Surgery Additional Past Surgical History / Comment(s): heart cath with stent (2007), kaity carpal tunnel, MOHS procedure, left eye vitreous hemorrhages, detached retina repair., Trap Ease-permanent vena cava filter (2015), right knee replacement. Past Anesthesia/Blood Transfusion Reactions: Motion Sickness Additional Past Anesthesia/Blood Transfusion Reaction / Comment(s): NO BLOOD PRODUCTS - JEHOVAH WITNESS. Date of Last Stent Placement:: 2007 Past Psychological History: Anxiety, Depression Smoking Status: Former smoker Past Alcohol Use History: Occasional Past Drug Use History: None Reported - Past Family History Mother Family Medical History: No Reported History General Exam - General Exam Comments Initial Comments: GENERAL: Patient is well-developed and well-nourished. Patient is nontoxic and well- hydrated and is in mild distress. ENT: Neck is soft and supple. No significant lymphadenopathy is noted. Oropharynx is clear. Moist mucous membranes. Neck has full range of motion without eliciting any pain. EYES: The sclera were anicteric and conjunctiva were pink and moist. Extraocular movements were intact and pupils were equal round and reactive to light. Eyelids were unremarkable. PULMONARY: Unlabored respirations. Good breath sounds bilaterally. No audible rales rhonchi or wheezing was noted. CARDIOVASCULAR: There is a regular rate and rhythm without any murmurs gallops or rubs. ABDOMEN: Soft and nontender with normal bowel sounds. SKIN: Skin is clear with no lesions or rashes and otherwise unremarkable. NEUROLOGIC: Patient is alert and oriented x3. Cranial nerves II through XII are grossly intact. Motor and sensory are also intact. Normal speech, volume and content. Symmetrical smile. MUSCULOSKELETAL: Normal extremities with adequate strength and full range of motion. 1+ edema bilaterally LYMPHATICS: No significant lymphadenopathy is noted PSYCHIATRIC: Normal psychiatric evaluation. Limitations: no limitations Course Vital Signs 12/05/22 12/05/22 12/05/22 13:27 14:31 15:31 Temperature 98 F Pulse Rate 54 L 55 L 58 L Respiratory 16 18 18 Rate Blood Pressure 135/81 105/67 115/65 O2 Sat by Pulse 98 95 95 Oximetry Medical Decision Making - Medical Decision Making EKG was interpreted by myself. EKG shows sinus bradycardia at 59 bpm OH interval is 167 QRSs 87 QT interval 416 QTC is 4:15. Patient's EKG shows no ST segment elevation or depression. Was pt. sent in by a medical professional or institution (, PA, FORGING OPERATOR, urgent care, hospital, or [place] [facility]...) When possible be specific @ -[No] Did you speak to anyone other than the patient for history (EMS, parent, family, police, friend...)? What history was obtained from this source @ -[No] Did you review nursing and triage notes (agree or disagree)? Why? @ -[I reviewed and agree with nursing and triage notes] Were old charts reviewed (outside hosp., previous admission, EMS record, old EKG, old radiological studies, urgent care reports/EKG's, [place] [facility] records)? Report findings @ -I reviewed prior lab work in prior charts in this patient Differential Diagnosis (chest pain, altered mental status, abdominal pain women, abdominal pain men, vaginal bleeding, weakness, fever, dyspnea, syncope, headache, dizziness, GI bleed, back pain, seizure, CVA, palpatations, mental health, musculoskeletal)? @ -Differential Chest Pain: Stable Angina, Unstable Angina, STEMI, NSTEMI Aortic Dissection, Pneumothorax, Musculoskeletal, Esophageal Spasm GERD, Cholecystitis, Pancreatitis, Zoster, this is not meant to be an all-inclusive list. EKG interpreted by me (3pts min.). @ -[As above] X-rays interpreted by me (1pt min.). @ -Chest x-ray shows no acute abnormality CT interpreted by me (1pt min.). @ -[None done] U/S interpreted by me (1pt. min.). @ -[None done] What testing was considered but not performed or refused? (CT, X-rays, U/S, labs)? Why? @ -[None] What meds were considered but not given or refused? Why? @ -[None] Did you discuss the management of the patient with other professionals (professionals i.e. , PA, FORGING OPERATOR, lab, RT, psych nurse, secondary social studies teacher, interventionist, teacher, weapons electrical engineering officer, showcase trimmer)? Give summary @ -I spoke with Dr. Fu he agreed to admit the patient admitted the patient wrote admitting orders Was smoking cessation discussed for >3mins.? @ -[No] Was critical care preformed (if so, how long)? @ -[No] Were there social determinants of health that impacted care today? How? (Homelessness, low income, unemployed, alcoholism, drug addiction, transportation, low edu. Level, literacy, decrease access to med. care, [place] [facility], rehab)? @ -[No] Was there de-escalation of care discussed even if they declined (Discuss DNR or withdrawal of care, Hospice)? DNR status @ -[No] What co-morbidities impacted this encounter? (DM, HTN, Smoking, COPD, CAD, Cancer, CVA, ARF, Chemo, Hep., AIDS, mental health diagnosis, sleep apnea, morbid obesity)? @ -[None] Was patient admitted / discharged? Hospital course, mention meds given and route, prescriptions, significant lab abnormalities, going to OR and other pertinent info. @ -Patient continued to have chest pain. I spoke with Dr. Fu and gave him the results of the lab work. He agreed to admit the patient minute the patient consult cardiology I also ordered an ESR and CRP. Undiagnosed new problem with uncertain prognosis? @ -[No] Drug Therapy requiring intensive monitoring for toxicity (Heparin, Nitro, Insulin, Cardizem)? @ -[No] Were any procedures done? @ -No Diagnosis/symptom? @ -Chest pain Acute, or Chronic, or Acute on Chronic? @ -Acute Uncomplicatedwithout systemic symptoms) or Complicated (systemic symptoms)? @ -Complicated Side effects of treatment? @ -[No] Exacerbation, Progression, or Severe Exacerbation? @ -[No] Poses a threat to life or bodily function? How? (Chest pain, [place], [place], pneumonia, PE, COPD, DKA, ARF, appy, cholecystitis, CVA, Diverticulitis, Homicidal, Suicidal, threat to staff... and all critical care pts) @ -Yes this could lead to an [place] which could lead end organ dysfunction - Lab Data Result diagrams: 12/05/22 13:55 12/05/22 13:55 Lab Results 12/05/22 12/05/22 12/05/22 Range/Units 13:33 13:55 13:55 WBC 13.4 H (3.8-10.6) k/uL RBC 4.81 (4.30-5.90) m/uL Hgb 15.3 (13.0-17.5) gm/dL Hct 45.4 (39.0-53.0) % MCV 94.4 (80.0-100.0) fL MCH 31.8 (25.0-35.0) pg MCHC 33.7 (31.0-37.0) g/dL RDW 13.1 (11.5-15.5) % Plt Count 237 (150-450) k/uL MPV 7.2 Neutrophils % 80 % Lymphocytes % 12 % Monocytes % 6 % Eosinophils % 1 % Basophils % 0 % Neutrophils # 10.8 H (1.3-7.7) k/uL Lymphocytes # 1.6 (1.0-4.8) k/uL Monocytes # 0.8 (0-1.0) k/uL Eosinophils # 0.2 (0-0.7) k/uL Basophils # 0.0 (0-0.2) k/uL PT 11.0 (9.0-12.0) sec INR 1.0 (<1.2) APTT 23.7 (22.0-30.0) sec Sodium (137-145) mmol/L Potassium (3.5-5.1) mmol/L Chloride (98-107) mmol/L Carbon Dioxide (22-30) mmol/L Anion Gap mmol/L BUN (9-20) mg/dL Creatinine (0.66-1.25) mg/dL Est GFR (CKD-EPI)AfAm (>60 ml/min/1.73 sqM) Est GFR (CKD-EPI)NonAf (>60 ml/min/1.73 sqM) Glucose (74-99) mg/dL Calcium (8.4-10.2) mg/dL Magnesium (1.6-2.3) mg/dL Total Bilirubin (0.2-1.3) mg/dL AST (17-59) U/L ALT (4-49) U/L Alkaline Phosphatase (38-126) U/L Troponin I (0.000-0.034) ng/mL C-Reactive Protein <0.5 (<1.0) mg/dL Total Protein (6.3-8.2) g/dL Albumin (3.5-5.0) g/dL 12/05/22 12/05/22 Range/Units 13:55 13:55 WBC (3.8-10.6) k/uL RBC (4.30-5.90) m/uL Hgb (13.0-17.5) gm/dL Hct (39.0-53.0) % MCV (80.0-100.0) fL MCH (25.0-35.0) pg MCHC (31.0-37.0) g/dL RDW (11.5-15.5) % Plt Count (150-450) k/uL MPV Neutrophils % % Lymphocytes % % Monocytes % % Eosinophils % % Basophils % % Neutrophils # (1.3-7.7) k/uL Lymphocytes # (1.0-4.8) k/uL Monocytes # (0-1.0) k/uL Eosinophils # (0-0.7) k/uL Basophils # (0-0.2) k/uL PT (9.0-12.0) sec INR (<1.2) APTT (22.0-30.0) sec Sodium 132 L (137-145) mmol/L Potassium 4.3 (3.5-5.1) mmol/L Chloride 100 (98-107) mmol/L Carbon Dioxide 24 (22-30) mmol/L Anion Gap 8 mmol/L BUN 26 H (9-20) mg/dL Creatinine 0.80 (0.66-1.25) mg/dL Est GFR (CKD-EPI)AfAm >90 (>60 ml/min/1.73 sqM) Est GFR (CKD-EPI)NonAf 87 (>60 ml/min/1.73 sqM) Glucose 109 H (74-99) mg/dL Calcium 9.0 (8.4-10.2) mg/dL Magnesium 2.0 (1.6-2.3) mg/dL Total Bilirubin 1.0 (0.2-1.3) mg/dL AST 27 (17-59) U/L ALT 26 (4-49) U/L Alkaline Phosphatase 57 (38-126) U/L Troponin I <0.012 (0.000-0.034) ng/mL C-Reactive Protein (<1.0) mg/dL Total Protein 6.5 (6.3-8.2) g/dL Albumin 3.9 (3.5-5.0) g/dL Disposition Clinical Impression: Chest pain Disposition: ADMITTED IP TO THIS HOSP Referrals: Chilo Jacobo DO [Primary Care Provider] - 1-2 days Time of Disposition: 16:30
[2022-12-05 14:16] LABS: Basophils % (A) 0 %; Eosinophils # (A) 0.2 k/uL (0-0.7); Eosinophils % (A) 1 %; HCT 45.4 % (39.0-53.0); HGB 15.3 gm/dL (13.0-17.5); Lymphocytes # (A) 1.6 k/uL (1.0-4.8); Lymphocytes % (A) 12 %; MCH 31.8 pg (25.0-35.0); MCHC 33.7 g/dL (31.0-37.0); MCV 94.4 fL (80.0-100.0); Mean Platelet Volume 7.2; Monocytes # (A) 0.8 k/uL (0-1.0); Monocytes % (A) 6 %; Neutrophils # (A) 10.8 k/uL (1.3-7.7); Neutrophils % (A) 80 %; Platelet Count 237 k/uL (150-450); RBC 4.81 m/uL (4.30-5.90); RDW 13.1 % (11.5-15.5); WBC 13.4 k/uL (3.8-10.6)
[2022-12-05 14:25] LABS: ALT 26 U/L (4-49); AST 27 U/L (17-59); African American GFR (CKD) >90 (>60 ml/min/1.73 sqM); Albumin 3.9 g/dL (3.5-5.0); Alkaline Phosphatase 57 U/L (38-126); Anion Gap 8 mmol/L; Blood Urea Nitrogen 26 mg/dL (9-20); Carbon Dioxide 24 mmol/L (22-30); Chloride 100 mmol/L (98-107); Glucose 109 mg/dL (74-99); Non-African American GFR(CKD) 87 (>60 ml/min/1.73 sqM); Potassium 4.3 mmol/L (3.5-5.1); Sodium 132 mmol/L (137-145); Total Protein 6.5 g/dL (6.3-8.2)
--- NOTE | 2022-12-05 14:25 | XR ---
EXAMINATION TYPE: XR chest 2V DATE OF EXAM: 12/05/2022 COMPARISON: 06/10/2021 INDICATION: Chest pain TECHNIQUE: Frontal and lateral views of the chest are obtained. FINDINGS: The heart size is normal. The pulmonary vasculature is normal. The lungs are clear. IMPRESSION: 1. No acute pulmonary process.
[2022-12-05 14:29] LABS: Partial Thromboplastin Time 23.7 sec (22.0-30.0)
[2022-12-05] MEDS ORDERED: NITROGLYCERIN SL TABS 0.4 MG TAB SUBLINGUAL PRN (16:30)
[2022-12-05] MEDS: NITROGLYCERIN OINT 1 INCH/GM PACKET TOPICAL SCH (17:13)
[2022-12-05] MEDS ORDERED: ALPRAZolam 0.5 MG TAB PO PRN (19:27)
[2022-12-05] MEDS ORDERED: HYDROcodone/APAP 10-325MG 1 EACH TAB PO PRN (19:28)
[2022-12-05] MEDS ORDERED: LACTULOSE 20 GM/30 ML CUP PO PRN (20:51)
[2022-12-05] MEDS ORDERED: ONDANSETRON 4 MG/2 ML VIAL IVP PRN (20:51)
[2022-12-05] MEDS ORDERED: ACETAMINOPHEN TAB 325 MG TAB PO PRN (20:51)
[2022-12-05] MEDS ORDERED: NALOXONE 0.4 MG/ML 1 ML VIAL IV PRN (20:51)
[2022-12-05] MEDS ORDERED: MELATONIN 3 MG TABLET PO PRN (20:51)
--- NOTE | 2022-12-05 21:00 | P.HPIM ---
History of Present Illness H&P Date: 12/05/22 Chief Complaint: Chest pain This is a pleasant 77-year-old patient who follows Dr. Chilo Linares. Patient presents with pain across the chest for about 6 days. It is worse with activity. No dizziness no lightheadedness. Does break out in sweats. Does feel extremely tired. Sometimes as if he is getting squeezed out. Some shortness of breath. Patient last stress test was about [address] Allen. He does take some diuretics for his lower extremity chronic edema. Which is better with the same. Review of systems: GEN.: Tired EYES: None HEENT: None NECK: None RESPIRATORY: None CARDIOVASCULAR: As above GASTROINTESTINAL: None GENITOURINARY: Decreased urine stream. Gets up about 4 times a night to urinate. MUSCULOSKELETAL: Joint pains LYMPHATICS: None HEMATOLOGICAL: None PSYCHIATRY: None NEUROLOGICAL: None Past medical history to include: CAD with stent, DVT, hypertension, hyperlipidemia, ostomy arthritis, BPH, DVT 3, detached retina. Anxiety depression Social history: Patient smoked a pack a day for 15 years stopped in 2007. Alcohol occasionally. . 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 Physical examination: VITAL SIGNS: 98, 61, 18, 141/80, 100% room air GENERAL: BMI 41.8, declining but awake not in distress. EYES: Pupils equal. Conjunctiva normal. HEENT: External appearance of nose and ears normal, oral cavity grossly normal. NECK: JVD not raised; masses not palpable. HEART: First and second heart sounds are normal; no edema. LUNGS: Respiratory rate normal; clear to auscultation. ABDOMEN: Soft, nontender, liver spleen not palpable, no masses palpable. PSYCH: Alert and oriented x3; mood and affect normal. MUSCULOSKELETAL:No Clubbing/cyanosis;muscles-grossly intact. UA NEUROLOGICAL: Cranial nerves grossly intact; no facial asymmetry, power and sensation grossly intact. LYMPHATICS: No lymph nodes palpable in the axilla and neck INVESTIGATIONS, reviewed in the clinical context: White count 13.4 hemoglobin 15.3 platelets 237 sodium 132 potassium 4.3 BUN creatinine 0.8 Troponin I less than 0.0123 EKG tracing personally reviewed by me-normal sinus rhythm Chest x-ray film personally reviewed by me-unremarkable Assessment and plan: -Possible unstable angina patient known CAD. Nitro paste. Eliquis. Aspirin. Lipitor. Toprol-XL. Cardiology consulted -CAD with a prior history of stent Lipitor, Toprol-XL sister -Essential hypertension Sister, Toprol-XL, cardiovascular Cardizem -BPH Flomax, Cardura -Morbid obesity BMI 41.8 Weight loss measures -Anxiety not otherwise specified Xanax when necessary- Care was discussed with the patient. Cardiology consulted. Past Medical History Past Medical History: Coronary Artery Disease (CAD), Cancer, Deep Vein Thro mbosis (DVT), Eye Disorder, Hyperlipidemia, Hypertension, Myocardial Infarction (CT), Osteoarthritis (OA), Prostate Disorder Additional Past Medical History / Comment(s): skin cancer, glaucoma, DVT x3, colon polyps., BPH., states no blood products-Jehovah Witness. Last Myocardial Infarction Date:: UNKNOWN History of Any Multi-Drug Resistant Organisms: None Reported Past Surgical History: Heart Catheterization With Stent, Orthopedic Surgery Additional Past Surgical History / Comment(s): heart cath with stent (2007), kaity carpal tunnel, MOHS procedure, left eye vitreous hemorrhages, detached retina repair., Trap Ease-permanent vena cava filter (2015), right knee replacement. Past Anesthesia/Blood Transfusion Reactions: Motion Sickness Additional Past Anesthesia/Blood Transfusion Reaction / Comment(s): NO BLOOD PRODUCTS - JEHOVAH WITNESS. Date of Last Stent Placement:: 2007 Past Psychological History: Anxiety, Depression Smoking Status: Former smoker Past Alcohol Use History: Occasional Past Drug Use History: None Reported - Past Family History Mother Family Medical History: No Reported History Medications and Allergies Home Medications Medication Instructions Recorded Confirmed Type Ascorbic Acid [Vitamin C] 500 mg PO DAILY 10/08/18 12/05/22 History Aspirin [Adult Low Dose Aspirin EC] 81 mg PO DAILY 10/08/18 12/05/22 History Atorvastatin [Lipitor] 20 mg PO HS 10/08/18 12/05/22 History Brimonidine Tartrate/Timolol 1 drop BOTH EYES BID 10/08/18 12/05/22 History [Combigan 0.2%-0.5% Eye Drops] Glucosam/Vel-Msm1/C/Abdullahi/Bosw 1 tab PO BID 10/08/18 12/05/22 History [Qnkbpsjgyad-Vxadphmfueq-UWM Tb] Doxazosin [Cardura] 1 mg PO DAILY 05/15/21 12/05/22 History HYDROcodone/APAP 10-325MG [[place] 1 tab PO Q6H PRN 06/10/21 12/05/22 History 10-325] Diltiazem Oral [Cardizem*] 30 mg PO TID 30 Days #90 tab 06/14/21 12/05/22 Rx lisinopriL [Zestril] 5 mg PO DAILY 30 Days #30 tab 06/14/21 12/05/22 Rx ALPRAZolam [Xanax] 0.5 mg PO TID PRN 12/05/22 12/05/22 History Apixaban [Eliquis] 5 mg PO BID 12/05/22 12/05/22 History Calcium/Magnesium/Vit D3/[place] 1 cap PO DAILY 12/05/22 12/05/22 History [Calcium-Mag Oxide-Vit D3 Sftgl] Ciprofloxacin HCl [Cipro] 500 mg PO BID 12/05/22 12/05/22 History Furosemide [Lasix] 20 mg PO DAILY 12/05/22 12/05/22 History Metoprolol Succinate (ER) [Toprol 25 mg PO BID 12/05/22 12/05/22 History Xl] Multivitamins, Thera [Multivitamin 1 tab PO DAILY 12/05/22 12/05/22 History (formulary)] Nitroglycerin Sl Tabs [Nitrostat] 0.4 mg SUBLINGUAL Q5M PRN 12/05/22 12/05/22 History Tamsulosin [Flomax] 0.4 mg PO AC-BRKFST 12/05/22 12/05/22 History Turmeric Root Extract [Turmeric 500 mg PO BID 12/05/22 12/05/22 History Curcumin] Vitamin B Complex 1 cap PO DAILY 12/05/22 12/05/22 History Allergies Allergy/AdvReac Type Severity Reaction Status Date / Time No Known Allergies Allergy Verified 12/05/22 14:58 Physical Exam Vitals: Vital Signs Temp Pulse Resp BP Pulse Ox 12/05/22 18:44 61 18 141/80 100 12/05/22 15:31 58 L 18 115/65 95 12/05/22 14:31 55 L 18 105/67 95 12/05/22 13:27 98 F 54 L 16 135/81 98 Intake and Output 12/05/22 12/05/2223 06:59 14:59 22:59 Other: Weight 136.078 kg Results CBC & Chem 7: 12/05/22 13:55 12/05/22 13:55 Labs: Abnormal Lab Results - Last 24 Hours (Table) 12/05/22 12/05/22 Range/Units 13:55 13:55 WBC 13.4 H (3.8-10.6) k/uL Neutrophils # 10.8 H (1.3-7.7) k/uL Sodium 132 L (137-145) mmol/L BUN 26 H (9-20) mg/dL Glucose 109 H (74-99) mg/dL
[2022-12-05] MEDS: APIXABAN 5 MG TAB PO SCH (21:05)
[2022-12-05] MEDS: METOPROLOL SUCCINATE (ER) 25 MG TAB.ER.24H PO SCH (21:05)
[2022-12-05] MEDS: ATORVASTATIN 20 MG TAB PO SCH (21:06)
[2022-12-05] MEDS: TIMOLOL 0.5% OPHTH DROPS 5 ML BTL BOTH EYES SCH (21:06)
[2022-12-05] MEDS: BRIMONIDINE TARTRATE 0.2% DROPS 5 ML BTL BOTH EYES SCH (21:06)
[2022-12-05] MEDS: DILTIAZEM ORAL 30 MG TAB PO SCH (21:06)
[2022-12-06] MEDS: NITROGLYCERIN OINT 1 INCH/GM PACKET TOPICAL SCH ×5 (00:14→23:56)
[2022-12-06] MEDS ORDERED: REGADENOSON 0.4 MG/5 ML SYRINGE IV PRN (08:16)
[2022-12-06] MEDS ORDERED: AMINOPHYLLINE 500 MG/20 ML VIAL IV PRN (08:16)
[2022-12-06] MEDS ORDERED: CAFFEINE CITRATE 60 MG/3 ML VIAL IV PRN (08:16)
[2022-12-06] MEDS: TAMSULOSIN 0.4 MG CAP.ER.24H PO SCH (08:28)
[2022-12-06] MEDS ORDERED: NON FORMULARY DRUG (Vitamin B Complex [Vitamin B Complex] 1 EACH Capsule) PO SCH (09:00)
--- NOTE | 2022-12-06 10:21 | P.CRDCN ---
History of Present Illness Consult date: 12/06/22 Consult reason: chest pain History of present illness: History of present illness: This is a [address] Dr[address] Silva a past medical history of CAD with prior stenting of the LAD and intermediate disease involving the left circumflex, as well as hypertension, dyslipidemia, valvular heart disease with aortic stenosis and regurgitation, history of DVT status post IVC filter, paroxysmal atrial fibrillation on eliquis, ascending aorta dilation. Patient was last seen in the office on 11/09/2022. We have been asked to evaluate the patient for chest pain. Patient states he developed chest pain that has been going on a pressure-type pain for the 6 days and has been constant. If it goes away it only goes away briefly. He states it is not similar to the pain when he had his stent placed as that was more severe. He went to his PCP office and had an EKG done which revealed atrial fibrillation and patient was instructed to come in the hospital for further evaluation. He states that he has noticed lately that his heart race been running in the 90s and 100s and is normally in the 50s. Chest pain developed the day after he had cortisone shots in the bilateral shoulders and also Mohs procedure on his left cheek. Patient states he has a little dizziness, intermittent shortness of breath and occasionally has palpitations. He also states he occasionally has wheezing. Patient does have some chronic lower extremity edema. Patient is seen today in the emergency center waiting for a bed on the observation unit. Reviewed EKG from PCP office and noted to be in atrial fibrillation EKG sinus rhythm Chest x-ray: No acute process WBC 13.4, hemoglobin 13.3, platelet count 237. INR 1. Troponin negative 3. Sodium 132, potassium 4.3, BUN 26 and creatinine 0.8. Blood sugar 109. Liver function tests normal. Magnesium 2 Home cardiac medications: Eliquis 5 mg twice daily, aspirin 81 mg daily, Lipitor 20 mg at bedtime, Cardizem 30 mg 3 times daily, Cardura 1 mg daily, Lasix 20 mg daily, lisinopril 5 mg daily, Toprol-XL 25 mg twice daily, Nitrostat as needed. Cardiac catheterization 09/2018 revealed intermediate to severe disease in left circumflex, FFR 0.94 patent stent of the proximal LAD PCI LAD in 2007 Echocardiogram 06/2022, normal EF, moderate aortic regurgitation and mild aortic stenosis, mild mitral regurgitation, mild tricuspid regurgitation, dilated aorta 4.3 cm Pratibha scan stress test 04/2021 revealed mild reversible defect in the basal inferior Review Of Systems: At the time of my evaluation: Constitutional: No fever, no chills. No weakness, fatigue or lethargy. EENT: No headache. No dizziness. Lungs: No shortness of breath, cough, no sputum production. No wheezing. Cardiovascular: No chest pain, no lower extremity edema. No palpitations. No paroxysmal nocturnal dyspnea. No orthopnea. No lightheadedness or dizziness. No syncopal episodes. Abdominal: No abdominal pain. No nausea, vomiting. No diarrhea. No constipation. No bloody or tarry stools. Genitourinary: No dysuria.. No urinary retention. Musculoskeletal: No myalgias. No muscle weakness, no frequent falls. No back p ain. No neck pain. Integumentary: No wounds. No rash. No unusual bruising. Neurologic: No aphasia. No facial droop. No change in mentation. No head injury. No headache. Physical examination: Gen: This is a 77 year old male, resting on ER stretcher and appears to be comfortable and in no acute distress. VS: reviewed. Blood pressure 140/80, heart rate in the 50s. Telemetry sinus [facility] HEENT: Head is atraumatic, normocephalic. Pupils equal, round. Sclerae is anicteric. NECK: Supple. No JVD. . LUNGS: Clear to auscultation. No wheezes or rhonchi. No intercostal retractions. HEART: Regular rate and rhythm. Systolic murmur. ABDOMEN: Soft No tenderness. EXTREMITIES: 1+ bilateral pedal edema. No calf tenderness. NEUROLOGICAL: Patient is awake, alert and oriented x3. Assessment: Chest pressure, acute coronary syndrome ruled out History of coronary artery disease with prior stenting of the LAD and intermediate disease of the left circumflex Hypertension Dyslipidemia Valvular heart disease with aortic stenosis and regurgitation History of DVT and IVC filter Paroxysmal atrial fibrillation Plan: Resume patient's cardiac medications Pratibha scan stress test today Obtain 2-D echocardiogram and Doppler study to assess cardiac structure and function If testing is unremarkable, patient is cleared from cardiology for discharge home and may follow up with Dr. Silva in one week. Thank you kindly for this consultation. Nurse practitioner note has been reviewed, I agree with documented findings and plan of care. Patient was seen and examined. Past Medical History Past Medical History: Coronary Artery Disease (CAD), Cancer, Deep Vein Thrombosis (DVT), Eye Disorder, Hyperlipidemia, Hypertension, Myocardial Infarction (NH), Osteoarthritis (OA), Prostate Disorder Additional Past Medical History / Comment(s): skin cancer, glaucoma, DVT x3, colon polyps., BPH., states no blood products-Jehovah Witness. Last Myocardial Infarction Date:: UNKNOWN History of Any Multi-Drug Resistant Organisms: None Reported Past Surgical History: Heart Catheterization With Stent, Orthopedic Surgery Additional Past Surgical History / Comment(s): heart cath with stent (2007), kaity carpal tunnel, MOHS procedure, left eye vitreous hemorrhages, detached retina repair., Trap Ease-permanent vena cava filter (2015), right knee replacement. Past Anesthesia/Blood Transfusion Reactions: Motion Sickness Additional Past Anesthesia/Blood Transfusion Reaction / Comment(s): NO BLOOD PRODUCTS - JEHOVAH WITNESS. Date of Last Stent Placement:: 2007 Past Psychological History: Anxiety, Depression Smoking Status: Former smoker Past Alcohol Use History: Occasional Past Drug Use History: None Reported - Past Family History Mother Family Medical History: No Reported History Medications and Allergies Home Medications Medication Instructions Recorded Confirmed Type Ascorbic Acid [Vitamin C] 500 mg PO DAILY 10/08/18 12/05/22 History Aspirin [Adult Low Dose Aspirin EC] 81 mg PO DAILY 10/08/18 12/05/22 History Atorvastatin [Lipitor] 20 mg PO HS 10/08/18 12/05/22 History Brimonidine Tartrate/Timolol 1 drop BOTH EYES BID 10/08/18 12/05/22 History [Combigan 0.2%-0.5% Eye Drops] Glucosam/Vel-Msm1/C/Abdullahi/Bosw 1 tab PO BID 10/08/18 12/05/22 History [Qwuirtlnixo-Tozxlrczhla-DRF Tb] Doxazosin [Cardura] 1 mg PO DAILY 05/15/21 12/05/22 History HYDROcodone/APAP 10-325MG [Wilson 1 tab PO Q6H PRN 06/10/21 12/05/22 History 10-325] Diltiazem Oral [Cardizem*] 30 mg PO TID 30 Days #90 tab 06/14/21 12/05/22 Rx lisinopriL [Zestril] 5 mg PO DAILY 30 Days #30 tab 06/14/21 12/05/22 Rx ALPRAZolam [Xanax] 0.5 mg PO TID PRN 12/05/22 12/05/22 History Apixaban [Eliquis] 5 mg PO BID 12/05/22 12/05/22 History Calcium/Magnesium/Vit D3/[place] 1 cap PO DAILY 12/05/22 12/05/22 History [Calcium-Mag Oxide-Vit D3 Sftgl] Ciprofloxacin HCl [Cipro] 500 mg PO BID 12/05/22 12/05/22 History Furosemide [Lasix] 20 mg PO DAILY 12/05/22 12/05/22 History Metoprolol Succinate (ER) [Toprol 25 mg PO BID 12/05/22 12/05/22 History Xl] Multivitamins, Thera [Multivitamin 1 tab PO DAILY 12/05/22 12/05/22 History (formulary)] Nitroglycerin Sl Tabs [Nitrostat] 0.4 mg SUBLINGUAL Q5M PRN 12/05/22 12/05/22 History Tamsulosin [Flomax] 0.4 mg PO AC-BRKFST 12/05/22 12/05/22 History Turmeric Root Extract [Turmeric 500 mg PO BID 12/05/22 12/05/22 History Curcumin] Vitamin B Complex 1 cap PO DAILY 12/05/22 12/05/22 History Allergies Allergy/AdvReac Type Severity Reaction Status Date / Time No Known Allergies Allergy Verified 12/05/22 14:58 Physical Exam Vitals: Vital Signs Temp Pulse Resp BP Pulse Ox 12/06/22 07:23 97.9 F 18 126/75 97 12/06/22 06:00 56 L 111/65 97 12/06/22 05:00 57 L 123/71 95 12/06/22 03:18 64 16 109/54 98 12/06/22 03:16 64 18 109/57 12/06/22 01:17 55 L 16 146/75 97 12/05/22 21:03 58 L 18 130/73 97 12/05/22 18:44 61 18 141/80 100 12/05/22 15:31 58 L 18 115/65 95 12/05/22 14:31 55 L 18 105/67 95 12/05/22 13:27 98 F 54 L 16 135/81 98 Intake and Output 12/05/22 12/06/22 12/06/22 22:59 06:59 14:59 Output Total 600 Balance -600 Output: Urine 600 Results 12/05/22 13:55 12/05/22 13:55 Cardiac Enzymes 12/05/22 12/05/22 12/05/22 Range/Units 13:55 13:55 17:43 AST 27 (17-59) U/L Troponin I <0.012 <0.012 (0.000-0.034) ng/mL 12/05/22 Range/Units 20:08 AST (17-59) U/L Troponin I <0.012 (0.000-0.034) ng/mL Coagulation 12/05/22 Range/Units 13:55 PT 11.0 (9.0-12.0) sec APTT 23.7 (22.0-30.0) sec CBC 12/05/22 Range/Units 13:55 WBC 13.4 H (3.8-10.6) k/uL RBC 4.81 (4.30-5.90) m/uL Hgb 15.3 (13.0-17.5) gm/dL Hct 45.4 (39.0-53.0) % Plt Count 237 (150-450) k/uL Comprehensive Metabolic Panel 12/05/22 Range/Units 13:55 Sodium 132 L (137-145) mmol/L Potassium 4.3 (3.5-5.1) mmol/L Chloride 100 (98-107) mmol/L Carbon Dioxide 24 (22-30) mmol/L BUN 26 H (9-20) mg/dL Creatinine 0.80 (0.66-1.25) mg/dL Glucose 109 H (74-99) mg/dL Calcium 9.0 (8.4-10.2) mg/dL AST 27 (17-59) U/L ALT 26 (4-49) U/L Alkaline Phosphatase 57 (38-126) U/L Total Protein 6.5 (6.3-8.2) g/dL Albumin 3.9 (3.5-5.0) g/dL Current Medications Generic Name Dose Route Start Last Admin Trade Name Freq PRN Reason Stop Dose Admin Acetaminophen 650 mg 12/05/22 20:51 Acetaminophen Tab 325 Mg Tab PO Q6HR PRN Mild Pain or Fever > 100.5 Hydrocodone Bitart/Acetaminophen 1 each 12/05/22 19:28 12/06/22 06:02 Hydrocodone/Apap 10-325mg 1 Each Tab PO 1 each Q6H PRN Administration Pain Alprazolam 0.5 mg 12/05/22 19:27 Alprazolam 0.5 Mg Tab PO TID PRN Anxiety Apixaban 5 mg 12/05/22 21:00 12/05/22 21:05 Apixaban 5 Mg Tab PO 5 mg BID [facility] Administration Protocol Ascorbic Acid 500 mg 12/06/22 09:00 Ascorbic Acid 500 Mg Tab PO DAILY [facility] Aspirin 325 mg 12/06/22 09:00 Aspirin 325 Mg Tab PO DAILY [facility] Aspirin 81 mg 12/06/22 09:00 Aspirin 81 Mg PO DAILY [facility]1983 Atorvastatin Calcium 20 mg 12/05/22 21:00 12/05/22 21:06 Atorvastatin 20 Mg Tab PO 20 mg HS [facility]1983 Administration Brimonidine Tartrate 1 drops 12/05/22 21:00 12/05/22 21:06 Brimonidine Tartrate 0.2% Drops 5 Ml Btl BOTH EYES 1 drops BID [facility]1983 Administration Diltiazem HCl 30 mg 12/05/22 22:00 12/05/22 21:06 Diltiazem Oral 30 Mg Tab PO 30 mg TID [facility] Administration Doxazosin Mesylate 1 mg 12/06/22 09:00 Doxazosin 1 Mg Tab PO DAILY [facility]1983 Furosemide 20 mg 12/06/22 09:00 Furosemide 20 Mg Tab PO DAILY [facility] Lactulose 20 gm 12/05/22 20:51 Lactulose 20 Gm/30 Ml Cup PO DAILY PRN Constipation Lisinopril 5 mg 12/06/22 09:00 Lisinopril 5 Mg Tab PO DAILY [facility] Melatonin 3 mg 12/05/22 20:51 Melatonin 3 Mg Tablet PO HS PRN Insomnia Metoprolol Succinate 25 mg 12/05/22 21:00 12/05/22 21:05 Metoprolol Succinate (Er) 25 Mg Tab.Er.24h PO 25 mg BID [facility] Administration Multivitamins 1 each 12/06/22 09:00 Multivitamins, Thera 1 Each Tab PO DAILY [facility] Naloxone HCl 0.2 mg 12/05/22 20:51 Naloxone 0.4 Mg/Ml 1 Ml Vial IV Q2M PRN Opioid Reversal Nitroglycerin 0.4 mg 12/05/22 16:30 Nitroglycerin Sl Tabs 0.4 Mg Tab SUBLINGUAL Q5M PRN Chest Pain Nitroglycerin 1 inch 12/05/22 18:00 12/06/22 05:54 Nitroglycerin Oint 1 Inch/Gm Packet TOPICAL Not Given Q6HR [facility] Ondansetron HCl 4 mg 12/05/22 20:51 Ondansetron 4 Mg/2 Ml Vial IVP Q8HR PRN Nausea And Vomiting Tamsulosin HCl 0.4 mg 12/06/22 07:30 Tamsulosin 0.4 Mg Cap.Er.24h PO AC-BRKFST [facility] Timolol Maleate 1 drops 12/05/22 21:00 12/05/22 21:06 Timolol 0.5% Ophth Drops 5 Ml Btl BOTH EYES 1 drops BID [facility] Administration Intake and Output 12/05/22 12/06/22 12/06/22 22:59 06:59 14:59 Output Total 600 Balance -600 Output: Urine 600 12/05/22 13:55 12/05/22 13:55
[2022-12-06 11:00] LABS: Chol/HDL Ratio 2.23 Ratio; LDL Cholesterol,Calculated 60.7 mg/dL (0.0-131.0); VLDL Calculation 14.38 mg/dL (5.00-40.00)
[2022-12-06] MEDS: ASPIRIN 81 MG PO SCH (11:11)
--- NOTE | 2022-12-06 11:13 | CA ---
Lexiscan Nuclear Stress Test Report Name: Emery Segura Exam Date: 12/06/2022 09:25 Exam Location: [place] Stress Ht (in): 71 Wt (lb): 300 BSA: 2.51 Ordering Phys: Ashlyn Gordon Referring Phys: CINDY,, Technologist: Musa Benítez Age: 77 Gender: M : 1945 Procedure CPT: Indications: Reflex order-Stress test ICD-10 Codes: Patient History: Medications: SEE CHART Meds past 24 hrs: Pretest Chest Pain: STRESS TEST Lexiscan Protocol Exercise Duration (min:sec): 02:[address] Depressions (mm): Angina Score: Yarbrough Score: Resting HR (bpm): 57 Peak HR (bpm): 66 Resting BP (mmHg): 134 / 76 Peak BP (mmHg): 128 / 75 MPHR: 143 Target HR: 122 % MPHR: 46 METS: 1.0 Total Dose: Peak Dose: Atropine: Double Product: 8448 BP Response: Stress Termination: PROTOCOL COMPLETE Stress Symptoms: NO SYMPTOMS Stress Summary: ECG ANALYSIS Resting ECG: Sinus rhythm. Normal conduction. No arrhythmias. Normal repolarization. Stress ECG: No ECG changes from baseline with Lexiscan infusion. CONCLUSIONS No ECG evidence of ischemia with Lexiscan infusion. Nuclear test results to follow. Dr. Enzo José MD (Electronically Signed) Final Date: 06 December 2022 11:12
[2022-12-06] MEDS: BRIMONIDINE TARTRATE 0.2% DROPS 5 ML BTL BOTH EYES SCH ×2 (11:20→20:15)
[2022-12-06] MEDS: TIMOLOL 0.5% OPHTH DROPS 5 ML BTL BOTH EYES SCH ×2 (11:20→20:16)
[2022-12-06] MEDS: FUROSEMIDE 20 MG TAB PO SCH (11:21)
[2022-12-06] MEDS: ASPIRIN 325 MG TAB PO SCH (11:21)
[2022-12-06] MEDS: DOXAZOSIN 1 MG TAB PO SCH (11:22)
[2022-12-06] MEDS: MULTIVITAMINS, THERA 1 EACH TAB PO SCH (11:22)
[2022-12-06] MEDS: APIXABAN 5 MG TAB PO SCH ×2 (11:22→19:18)
[2022-12-06] MEDS: DILTIAZEM ORAL 30 MG TAB PO SCH ×3 (11:22→20:16)
[2022-12-06] MEDS: ASCORBIC ACID 500 MG TAB PO SCH (11:22)
[2022-12-06] MEDS: METOPROLOL SUCCINATE (ER) 25 MG TAB.ER.24H PO SCH ×2 (11:22→20:16)
[2022-12-06] MEDS: lisinopriL 5 MG TAB PO SCH (11:23)
--- NOTE | 2022-12-06 12:03 | NM ---
EXAMINATION TYPE: NM stress lexiscan cardiolite DATE OF EXAM: 12/06/2022 COMPARISON: NONE CLINICAL INDICATION: Male, 77 years old with history of CP; TECHNIQUE: After the intravenous administration of 10.4 mCi Tc 99m Sestamibi - Cardiolite resting SP ECT images acquired 45 minutes post injection. The patient received 0.4mg Lexiscan, 26.3 mCi Tc 99m Sestamibi - Stress images obtained [address] injection FINDINGS: Review of stress and rest SPECT images demonstrates a small reversible ischemia involving the cardiac apex. Stress-induced ischemia is not excluded. Gated analysis shows normal wall motion with an estim ated left ventricular ejection fraction of 62 %. IMPRESSION: Small reversible ischemia involving the cardiac apex. Stress-induced ischemia is not excluded.
[2022-12-06] MEDS ORDERED: ALPRAZolam 0.25 MG TAB PO PRN (15:31)
[2022-12-06] MEDS ORDERED: NITROGLYCERIN SL TABS 0.4 MG TAB SUBLINGUAL PRN (15:31)
[2022-12-06] MEDS ORDERED: ALPRAZolam 0.5 MG TAB PO PRN (15:31)
[2022-12-06] MEDS: ATORVASTATIN 20 MG TAB PO SCH (20:16)
--- NOTE | 2022-12-06 21:57 | P.PN ---
Progress Note - Text Progress Note Date: 12/06/22 Chief Complaint: Chest pain This is a pleasant 77-year-old patient who follows Dr. Chilo Linares. Patient presents with pain across the chest for about 6 days. It is worse with activity. No dizziness no lightheadedness. Does break out in sweats. Does feel extremely tired. Sometimes as if he is getting squeezed out. Some shortness of breath. Patient last stress test was about [address] Allen. He does take some diuretics for his lower extremity chronic edema. Which is better with the same. December 06: No chest pain. Nuclear stress or show some reversibility. Probable cardiac catheterization tomorrow. Active Medications Acetaminophen (Acetaminophen Tab 325 Mg Tab) 650 mg PO Q6HR PRN PRN Reason: Mild Pain or Fever > 100.5 Hydrocodone Bitart/Acetaminophen (Hydrocodone/Apap 10-325mg 1 Each Tab) 1 each PO Q6H PRN PRN Reason: Pain Last Admin: 12/06/22 06:02 Dose: 1 each Alprazolam (Alprazolam 0.5 Mg Tab) 0.5 mg PO TID PRN PRN Reason: Anxiety Alprazolam (Alprazolam 0.25 Mg Tab) 0.25 mg PO Q6HR PRN PRN Reason: Mild Anxiety Alprazolam (Alprazolam 0.5 Mg Tab) 0.5 mg PO Q6HR PRN PRN Reason: Moderate Anxiety Apixaban (Apixaban 5 Mg Tab) 5 mg PO BID [facility]; Protocol Last Admin: 12/06/22 19:18 Dose: Not Given Ascorbic Acid (Ascorbic Acid 500 Mg Tab) 500 mg PO DAILY [facility] Last Admin: 12/06/22 11:22 Dose: 500 mg Aspirin (Aspirin 325 Mg Tab) 325 mg PO DAILY [facility] Last Admin: 12/06/22 11:21 Dose: 325 mg Aspirin (Aspirin 81 Mg) 81 mg PO DAILY [facility] Last Admin: 12/06/22 11:11 Dose: Not Given Aspirin (Aspirin 325 Mg Tab) 325 mg PO ONCE ONE Stop: 12/07/22 05:01 Atorvastatin Calcium (Atorvastatin 20 Mg Tab) 20 mg PO [facility] Last Admin: 12/06/22 20:16 Dose: 20 mg Atorvastatin Calcium (Atorvastatin 80 Mg Tab) 80 mg PO ONCE ONE Stop: 12/07/22 05:01 Brimonidine Tartrate (Brimonidine Tartrate 0.2% Drops 5 Ml Btl) 1 drops BOTH EYES BID [facility] Last Admin: 12/06/22 20:15 Dose: 1 drops Diltiazem HCl (Diltiazem Oral 30 Mg Tab) 30 mg PO TID [facility] Last Admin: 12/06/22 20:16 Dose: 30 mg Doxazosin Mesylate (Doxazosin 1 Mg Tab) 1 mg PO DAILY [facility] Last Admin: 12/06/22 11:22 Dose: 1 mg Furosemide (Furosemide 20 Mg Tab) 20 mg PO DAILY [facility] Last Admin: 12/06/22 11:21 Dose: 20 mg Heparin Sodium (Porcine) 10, (000 unit/ Sodium Chloride) 1,001 mls @ 999 mls/hr IRRIGATION ONCE PRN PRN Reason: INTRA-OP Stop: 12/07/22 23:00 Heparin Sodium (Porcine) 2,500 (unit/ Sodium Chloride) 250.5 mls @ 250 mls/hr IRRIGATION ONCE PRN PRN Reason: INTRA-OP Stop: 12/07/22 23:00 Lactulose (Lactulose 20 Gm/30 Ml Cup) 20 gm PO DAILY PRN PRN Reason: Constipation Lisinopril (Lisinopril 5 Mg Tab) 5 mg PO DAILY [facility] Last Admin: 12/06/22 11:23 Dose: 5 mg Melatonin (Melatonin 3 Mg Tablet) 3 mg PO HS PRN PRN Reason: Insomnia Metoprolol Succinate (Metoprolol Succinate (Er) 25 Mg Tab.Er.24h) 25 mg PO BID [facility] Last Admin: 12/06/22 20:16 Dose: 25 mg Multivitamins (Multivitamins, Thera 1 Each Tab) 1 each PO DAILY [facility] Last Admin: 12/06/22 11:22 Dose: 1 each Naloxone HCl (Naloxone 0.4 Mg/Ml 1 Ml Vial) 0.2 mg IV Q2M PRN PRN Reason: Opioid Reversal Nitroglycerin (Nitroglycerin Sl Tabs 0.4 Mg Tab) 0.4 mg SUBLINGUAL Q5M PRN PRN Reason: Chest Pain Nitroglycerin (Nitroglycerin Oint 1 Inch/Gm Packet) 1 inch TOPICAL Q6HR [facility] Last Admin: 12/06/22 17:19 Dose: Not Given Nitroglycerin (Nitroglycerin Sl Tabs 0.4 Mg Tab) 0.4 mg SUBLINGUAL Q5M PRN PRN Reason: Chest Pain Ondansetron HCl (Ondansetron 4 Mg/2 Ml Vial) 4 mg IVP Q8HR PRN PRN Reason: Nausea And Vomiting Tamsulosin HCl (Tamsulosin 0.4 Mg Cap.Er.24h) 0.4 mg PO AC-BRKFST [facility] Last Admin: 12/06/22 08:28 Dose: 0.4 mg Timolol Maleate (Timolol 0.5% Ophth Drops 5 Ml Btl) 1 drops BOTH EYES BID [facility] Last Admin: 12/06/22 20:16 Dose: 1 drops Past medical history to include: CAD with stent, DVT, hypertension, hyperlipidemia, ostomy arthritis, BPH, DVT 3, detached retina. Anxiety depression Social history: Patient smoked a pack a day for 15 years stopped in 2007. Alcohol occasionally. . 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 Physical examination: VITAL SIGNS: 7.5, 59, 17, 124/68, 96% room air GENERAL: BMI 41.8, declining, comfortable EYES: Pupils equal. Conjunctiva normal. HEENT: External appearance of nose and ears normal, oral cavity grossly normal. NECK: JVD not raised; masses not palpable. HEART: First and second heart sounds are normal; no edema. LUNGS: Respiratory rate normal; clear to auscultation. ABDOMEN: Soft, nontender, liver spleen not palpable, no masses palpable. PSYCH: Alert and oriented x3; mood and affect normal. MUSCULOSKELETAL:No Clubbing/cyanosis;muscles-grossly intact. UA INVESTIGATIONS, reviewed in the clinical context: Nuclear stress tests: Showing some reversibility at the apex. White count 13.4 hemoglobin 15.3 platelets 237 sodium 132 potassium 4.3 BUN creatinine 0.8 Troponin I less than 0.0123 EKG tracing personally reviewed by me-normal sinus rhythm Chest x-ray film personally reviewed by me-unremarkable Assessment and plan: -Possible unstable angina patient known CAD. Nitro paste. Eliquis. Aspirin. Lipitor. Toprol-XL. Nuclear stress test showing some reversibility at the apex -CAD with a prior history of stent Lipitor, Toprol-XL sister -Essential hypertension Zestril, Toprol-XL, Cardizem -BPH Flomax, Cardura -Morbid obesity BMI 41.8 Weight loss measures -Anxiety not otherwise specified Xanax when necessary- Probable cardiac catheterization tomorrow. Continue other medications.
[2022-12-07] MEDS ORDERED: ATORVASTATIN 80 MG TAB PO ONE (05:00)
[2022-12-07] MEDS ORDERED: ASPIRIN 325 MG TAB PO ONE (05:00)
[2022-12-07] MEDS: NITROGLYCERIN OINT 1 INCH/GM PACKET TOPICAL SCH ×3 (05:06→17:36)
[2022-12-07] MEDS: TAMSULOSIN 0.4 MG CAP.ER.24H PO SCH (05:22)
[2022-12-07] MEDS ORDERED: HEPARIN SODIUM,PORCINE 2,500 UNIT in SODIUM CHLORIDE 0.9% 250 ML IRRIGATION PRN (07:00)
[2022-12-07] MEDS ORDERED: HEPARIN SODIUM,PORCINE 10,000 UNIT in SODIUM CHLORIDE 0.9% 1,000 ML IRRIGATION PRN (07:00)
[2022-12-07] MEDS: APIXABAN 5 MG TAB PO SCH ×2 (07:41→22:41)
[2022-12-07] MEDS: ASPIRIN 81 MG PO SCH (08:36)
[2022-12-07] MEDS: ASPIRIN 325 MG TAB PO SCH (08:37)
[2022-12-07] MEDS: METOPROLOL SUCCINATE (ER) 25 MG TAB.ER.24H PO SCH ×2 (08:37→22:42)
[2022-12-07] MEDS: lisinopriL 5 MG TAB PO SCH (08:38)
[2022-12-07] MEDS: TIMOLOL 0.5% OPHTH DROPS 5 ML BTL BOTH EYES SCH ×2 (08:43→22:42)
[2022-12-07] MEDS: BRIMONIDINE TARTRATE 0.2% DROPS 5 ML BTL BOTH EYES SCH ×2 (08:43→22:42)
[2022-12-07] MEDS: ASCORBIC ACID 500 MG TAB PO SCH (08:44)
[2022-12-07] MEDS: DOXAZOSIN 1 MG TAB PO SCH (08:44)
[2022-12-07] MEDS: MULTIVITAMINS, THERA 1 EACH TAB PO SCH (08:44)
[2022-12-07] MEDS: DILTIAZEM ORAL 30 MG TAB PO SCH ×3 (08:44→22:42)
[2022-12-07] MEDS: FUROSEMIDE 20 MG TAB PO SCH (08:44)
--- NOTE | 2022-12-07 16:07 | P.PN ---
Progress Note - Text Progress Note Date: 12/07/22 Chief Complaint: Chest pain This is a pleasant 77-year-old patient who follows Dr. Chilo Linares. Patient presents with pain across the chest for about 6 days. It is worse with activity. No dizziness no lightheadedness. Does break out in sweats. Does feel extremely tired. Sometimes as if he is getting squeezed out. Some shortness of breath. Patient last stress test was about [address] Allen. He does take some diuretics for his lower extremity chronic edema. Which is better with the same. December 06: No chest pain. Nuclear stress or show some reversibility. Probable cardiac catheterization tomorrow. December 07: Patient was seen by me this morning. Nothing by mouth. No chest pain. Pending cardiac catheterization. at the bedside. Active Medications Acetaminophen (Acetaminophen Tab 325 Mg Tab) 650 mg PO Q6HR PRN PRN Reason: Mild Pain or Fever > 100.5 Hydrocodone Bitart/Acetaminophen (Hydrocodone/Apap 10-325mg 1 Each Tab) 1 each PO Q6H PRN PRN Reason: Pain Last Admin: 12/06/22 06:02 Dose: 1 each Alprazolam (Alprazolam 0.5 Mg Tab) 0.5 mg PO TID PRN PRN Reason: Anxiety Alprazolam (Alprazolam 0.25 Mg Tab) 0.25 mg PO Q6HR PRN PRN Reason: Mild Anxiety Alprazolam (Alprazolam 0.5 Mg Tab) 0.5 mg PO Q6HR PRN PRN Reason: Moderate Anxiety Apixaban (Apixaban 5 Mg Tab) 5 mg PO BID [facility]; Protocol Last Admin: 12/07/22 07:41 Dose: Not Given Ascorbic Acid (Ascorbic Acid 500 Mg Tab) 500 mg PO DAILY [facility] Last Admin: 12/07/22 08:44 Dose: 500 mg Aspirin (Aspirin 325 Mg Tab) 325 mg PO DAILY [facility] Last Admin: 12/07/22 08:37 Dose: Not Given Aspirin (Aspirin 81 Mg) 81 mg PO DAILY [facility] Last Admin: 12/07/22 08:36 Dose: Not Given Atorvastatin Calcium (Atorvastatin 20 Mg Tab) 20 mg PO HS [facility] Last Admin: 12/06/22 20:16 Dose: 20 mg Brimonidine Tartrate (Brimonidine Tartrate 0.2% Drops 5 Ml Btl) 1 drops BOTH EYES BID [facility] Last Admin: 12/07/22 08:43 Dose: 1 drops Diltiazem HCl (Diltiazem Oral 30 Mg Tab) 30 mg PO TID [facility] Last Admin: 12/07/22 08:44 Dose: 30 mg Doxazosin Mesylate (Doxazosin 1 Mg Tab) 1 mg PO DAILY [facility] Last Admin: 12/07/22 08:44 Dose: 1 mg Furosemide (Furosemide 20 Mg Tab) 20 mg PO DAILY [facility] Last Admin: 12/07/22 08:44 Dose: 20 mg Heparin Sodium (Porcine) 10, (000 unit/ Sodium Chloride) 1,001 mls @ 999 mls/hr IRRIGATION ONCE PRN PRN Reason: INTRA-OP Stop: 12/07/22 23:00 Heparin Sodium (Porcine) 2,500 (unit/ Sodium Chloride) 250.5 mls @ 250 mls/hr IRRIGATION ONCE PRN PRN Reason: INTRA-OP Stop: 12/07/22 23:00 Lactulose (Lactulose 20 Gm/30 Ml Cup) 20 gm PO DAILY PRN PRN Reason: Constipation Lisinopril (Lisinopril 5 Mg Tab) 5 mg PO DAILY [facility] Last Admin: 12/07/22 08:38 Dose: Not Given Melatonin (Melatonin 3 Mg Tablet) 3 mg PO HS PRN PRN Reason: Insomnia Metoprolol Succinate (Metoprolol Succinate (Er) 25 Mg Tab.Er.24h) 25 mg PO BID [facility] Last Admin: 12/07/22 08:37 Dose: Not Given Multivitamins (Multivitamins, Thera 1 Each Tab) 1 each PO DAILY [facility] Last Admin: 12/07/22 08:44 Dose: 1 each Naloxone HCl (Naloxone 0.4 Mg/Ml 1 Ml Vial) 0.2 mg IV Q2M PRN PRN Reason: Opioid Reversal Nitroglycerin (Nitroglycerin Sl Tabs 0.4 Mg Tab) 0.4 mg SUBLINGUAL Q5M PRN PRN Reason: Chest Pain Nitroglycerin (Nitroglycerin Oint 1 Inch/Gm Packet) 1 inch TOPICAL Q6HR [facility] Last Admin: 12/07/22 05:06 Dose: Not Given Nitroglycerin (Nitroglycerin Sl Tabs 0.4 Mg Tab) 0.4 mg SUBLINGUAL Q5M PRN PRN Reason: Chest Pain Ondansetron HCl (Ondansetron 4 Mg/2 Ml Vial) 4 mg IVP Q8HR PRN PRN Reason: Nausea And Vomiting Tamsulosin HCl (Tamsulosin 0.4 Mg Cap.Er.24h) 0.4 mg PO AC-BRKFST [facility] Last Admin: 12/07/22 05:22 Dose: 0.4 mg Timolol Maleate (Timolol 0.5% Ophth Drops 5 Ml Btl) 1 drops BOTH EYES BID [facility] Last Admin: 12/07/22 08:43 Dose: 1 drops Past medical history to include: CAD with stent, DVT, hypertension, hyperlipidemia, ostomy arthritis, BPH, DVT 3, detached retina. Anxiety depression Social history: Patient smoked a pack a day for 15 years stopped in 2007. Alcohol occasionally. . 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 Physical examination: VITAL SIGNS: At 8.4, 64, 18, 129/70, 98% room air GENERAL: BMI 41.8, declining, comfortable EYES: Pupils equal. Conjunctiva normal. HEENT: External appearance of nose and ears normal, oral cavity grossly normal. NECK: JVD not raised; masses not palpable. HEART: First and second heart sounds are normal; no edema. LUNGS: Respiratory rate normal; clear to auscultation. ABDOMEN: Soft, nontender, liver spleen not palpable, no masses palpable. PSYCH: Alert and oriented x3; mood and affect normal. MUSCULOSKELETAL:No Clubbing/cyanosis;muscles-grossly intact. UA INVESTIGATIONS, reviewed in the clinical context: Nuclear stress tests: Showing some reversibility at the apex. White count 13.4 hemoglobin 15.3 platelets 237 sodium 132 potassium 4.3 BUN creatinine 0.8 Troponin I less than 0.0123 EKG tracing personally reviewed by me-normal sinus rhythm Chest x-ray film personally reviewed by me-unremarkable Assessment and plan: -Possible unstable angina patient known CAD. Nitro paste. Eliquis. Aspirin. Lipitor. Toprol-XL. Nuclear stress test showing some reversibility at the apex. Pending cardiac catheterization today. -CAD with a prior history of stent Lipitor, Toprol-XL sister -Essential hypertension Zestril, Toprol-XL, Cardizem -BPH Flomax, Cardura -Morbid obesity BMI 41.8 Weight loss measures -Anxiety not otherwise specified Xanax when necessary- Nothing by mouth. Pending cardiac catheterization today. Discussed.
[2022-12-07] MEDS ORDERED: SODIUM CHLORIDE 0.9% 1,000 ML IV ONE (17:58)
[2022-12-07] MEDS ORDERED: LIDOCAINE 1% INJ 10MG/ML (5 ML VIAL-PF) SQ ONE (18:11)
[2022-12-07] MEDS ORDERED: VERAPAMIL SYRINGE (5 MG/10 ML) INTRAARTER ONE (18:16)
[2022-12-07] MEDS: HEPARIN SODIUM 1,000 UN/ML (10ML VL) IV ONE ×3 (18:19→18:54)
[2022-12-07] MEDS ORDERED: MIDAZOLAM 2 MG/2 ML VIAL IV ONE ×2 (18:19→18:45)
[2022-12-07] MEDS ORDERED: HYDROmorphone 0.5 MG/0.5 ML SYRINGE IVP ONE (18:31)
[2022-12-07] MEDS ORDERED: IOPAMIDOL-370 100ML BTL INJ ONE (18:47)
[2022-12-07] MEDS ORDERED: CLOPIDOGREL 75 MG TAB ONE (18:52)
[2022-12-07] MEDS ORDERED: CLOPIDOGREL 75 MG TAB PO ONE (18:55)
[2022-12-07] MEDS ORDERED: NITROGLYCERIN SL TABS 0.4 MG TAB SUBLINGUAL PRN (19:19)
[2022-12-07] MEDS ORDERED: ZOLPIDEM 5 MG TAB PO PRN (19:19)
[2022-12-07] MEDS ORDERED: RX INFO: IV CONTRAST WAS GIVEN 1 EACH MISC MISCELLANE PRN (19:19)
[2022-12-07] MEDS ORDERED: MAG HYDROX/AL HYDROX/SIMETH 30 ML CUP PO PRN (19:19)
[2022-12-07] MEDS ORDERED: ATROPINE SULFATE 0.1 MG/ML 10ML SYRINGE IV PRN (19:19)
[2022-12-07] MEDS ORDERED: HEPARIN SODIUM 1,000 UN/ML (10ML VL) IV ONE (19:23)
[2022-12-07] MEDS ORDERED: IOPAMIDOL-300 100ML BTL INJ ONE (19:23)
[2022-12-07] MEDS ORDERED: SODIUM CHLORIDE 0.9% 1,000 ML in EMPTY BAG 1 BAG IV SCH (19:30)
[2022-12-07] MEDS: ATORVASTATIN 20 MG TAB PO SCH (22:42)
--- NOTE | 2022-12-07 23:02 | P.PCN ---
Date of Procedure: 12/07/22 Operative Findings: CARDIAC CATHETERIZATION AND PERCUTANEOUS CORONARY INTERVENTION PERFORMING PHYSICIAN: Juve Silva MD, [facility] PROCEDURE PERFORMED: 1. Selective right and left coronary angiogram 2. Left heart catheterization 3. Successful stenting of the ramus intermedius coronary artery using 3.5 x 18 mm Xience FOUZIA with an excellent angiographic results with adjunctive use of IVUS 4. FFR of the left circumflex coronary artery 4. Ultrasound-guided access of the right radial artery INDICATION: The patient is a 77-year-old gentleman with CAD and prior stenting of the LAD was admitted to the hospital with chest discomfort and underwent myocardial perfusion imaging stress test showed ischemia. COMPLICATION: None APPROACH: Right radial artery LEVEL OF SEDATION: Moderate with the sedation time off 60 minutes PROCEDURE DESCRIPTION: After obtaining an informed consent the patient was brought to the cardiac laborer hide house. The right radial artery was cannulated using micropuncture technique under ultrasound guidance, the micropuncture wire passed easily then I placed a 6- Ukrainian sheath. I gave the patient 2 mg of verapamil intra-arterial and a total of 6000 use of heparin intravenous. Continuous ACT monitoring was performed. Selective right and left coronary angiogram was performed using JR4 and JL 4.5 catheters and then left heart catheterization was performed using 6-Ukrainian pigtail catheter. After that I did intervene on the ramus intermedius coronary artery. Please note that the right radial access was performed using ultrasound. SELECTIVE CORONARY ANGIOGRAM: The right coronary artery: Large caliber vessel and a dominant vessel. The RCA has mild to moderate disease only. Left main: Short was mild disease only. Has mild disease only. The left circumflex: Large-caliber vessel and codominant vessel. The LCx this study has intermediate to severe lesion. We did an iFR are and that came into be ischemic as 0.84 The ramus intermedius: Has critical disease in the proximal portion The left anterior descending artery: The proximal LAD is a stented and the stent appeared to be patent. The mid and distal LAD appeared to have mild disease only. The LAD gives rise into a diagonal branch which appeared to be normal HEMODYNAMICS: The LVEDP was 20 mmHg was no significant gradient across aortic valve PCI OF THE RAMUS INTREMEDIUS and iFR OF THE LCX: Anticoagulation was initiated using heparin with continuous ACT monitoring. After that I did engage the left main using JL 4.5 guiding catheter. I did wire the ramus intermedius using a running through wire. After that predilatation was performed using 2.5 mm balloon. Intravascular ultrasound was performed and showed a diameter of the ramus around 3.5 mm. I deployed a 3.5 x 18 mm stent where the stent was positioned under fluoroscopy guidance and deployed under 12 madelin for 20 seconds. Intravascular ultrasound was performed again and showed that the midportion of the stent was not well expanded. A post dilated using 3.75 mm noncompliant balloon. Final angiogram showed good angiographic results and the procedure was completed was no complication After that and after zeroing the Doppler wire and equalizing between the lobular wire and guiding catheter which was the JL 4.5 guiding catheter we did wire the left circumflex. We did iFR of the left circumflex and that came in to be ischemic at 0.84. I decided to treat that medically at this point CONCLUSION: Patent stent in the proximal LAD Critical disease involving the ramus intermedius. I did perform successful PCI Severe disease involving the distal LCx confirmed by iFR POSTPROCEDURE MANAGEMENT: 1. Dual antiplatelet therapy using aspirin and Plavix for 6 month 2. Medical treatment for the LCx disease unless he remains symptomatic
[2022-12-08] MEDS: NITROGLYCERIN OINT 1 INCH/GM PACKET TOPICAL SCH ×2 (00:11→04:52)
[2022-12-08 03:26] VITALS: BP 131/68; PULSE 74; RESP 14; TEMP 97.8
[2022-12-08] MEDS: TAMSULOSIN 0.4 MG CAP.ER.24H PO SCH (05:48)
[2022-12-08 06:50] LABS: African American GFR (CKD) >90 (>60 ml/min/1.73 sqM); Non-African American GFR(CKD) >90 (>60 ml/min/1.73 sqM)
[2022-12-08] MEDS: DILTIAZEM ORAL 30 MG TAB PO SCH (08:47)
[2022-12-08] MEDS: MULTIVITAMINS, THERA 1 EACH TAB PO SCH (08:47)
[2022-12-08] MEDS: lisinopriL 5 MG TAB PO SCH (08:47)
[2022-12-08] MEDS: DOXAZOSIN 1 MG TAB PO SCH (08:47)
[2022-12-08] MEDS: APIXABAN 5 MG TAB PO SCH (08:47)
[2022-12-08] MEDS: ASCORBIC ACID 500 MG TAB PO SCH (08:47)
[2022-12-08] MEDS: ASPIRIN 81 MG PO SCH (08:47)
[2022-12-08] MEDS: METOPROLOL SUCCINATE (ER) 25 MG TAB.ER.24H PO SCH (08:47)
[2022-12-08] MEDS: ASPIRIN 325 MG TAB PO SCH (08:48)
[2022-12-08] MEDS: BRIMONIDINE TARTRATE 0.2% DROPS 5 ML BTL BOTH EYES SCH (08:48)
[2022-12-08] MEDS: FUROSEMIDE 20 MG TAB PO SCH (08:48)
[2022-12-08] MEDS: TIMOLOL 0.5% OPHTH DROPS 5 ML BTL BOTH EYES SCH (08:50)
[2022-12-08] MEDS ORDERED: CLOPIDOGREL 75 MG TAB PO SCH (09:00)
--- NOTE | 2022-12-08 10:11 | P.PN ---
Subjective Progress Note Date: 12/08/22 Principal diagnosis: CAD The patient is a pleasant 77-year-old gentleman with CAD and prior stenting of the LAD who was admitted to the hospital with chest discomfort and underwent myocardial perfusion imaging stress is given to be abnormal and subsequently underwent a heart catheterization and was found to have critical disease involving the ramus intermedius which was stented and severe disease involving the left circumflex which was treated medically December [id number] The patient was seen and evaluated this morning. He is asymptomatic. He is mechanically stable. From a cardiovascular standpoint of view, the patient potentially can be discharged home. We will follow-up with the patient as an outpatient. Assessment CAD and status post a stenting as described above Hypertension Dyslipidemia Multiple comorbid conditions Plan Continue the current medical regimen The patient potentially can be discharged home Objective - Vital Signs Vital signs: Vital Signs Temp 97.8 F 12/08/22 03:05 Pulse 74 12/08/22 03:05 Resp 14 12/08/22 03:05 BP 131/68 12/08/22 03:05 Pulse Ox 99 12/08/22 07:58 FiO2 Intake & Output 12/07/22 12/08/22 12/08/22 18:59 06:59 18:59 Intake Total 300 Balance 300 Intake: IV 300 Other: Voiding Method Toilet # Voids 0 3 - Labs CBC & Chem 7: 12/05/22 13:55 12/08/22 05:34
[2022-12-08 10:52] VITALS: BMI 41.8
--- NOTE | 2022-12-08 14:06 | P.DS ---
Providers Date of admission: 12/05/22 16:30 Expected date of discharge: 12/08/22 Attending physician: Homar Fu Consults: 12/05/22 16:30 Consult Physician Urgent Consulting Provider: [facility] Consult Reason/Comments: Chest pain Do you want consulting provider notified?: Yes 12/07/22 19:19 Consult Physician Routine Consulting Provider: [facility] Consult Reason/Comments: Post Interventional Patient Do you want consulting provider notified?: Already Contacted Primary care physician: Chilo Jacobo [facility] Course: Chief Complaint: Chest pain This is a pleasant 77-year-old patient who follows Dr. Chilo Linares. Patient presents with pain across the chest for about 6 days. It is worse with activity. No dizziness no lightheadedness. Does break out in sweats. Does feel extremely tired. Sometimes as if he is getting squeezed out. Some shortness of breath. Patient last stress test was about [address] Allen. He does take some diuretics for his lower extremity chronic edema. Which is better with the same. December 06: No chest pain. Nuclear stress or show some reversibility. Probable cardiac catheterization tomorrow. December 07: Patient was seen by me this morning. Nothing by mouth. No chest pain. Pending cardiac catheterization. at the bedside. December 08: Cardiac catheter yesterday showed: Patient stent in proximal LAD. Ramus intermedius underwent successful PCI. Severe disease involving distal left circumflex conformed by ifr. Patient's had no further chest symptoms since admission but has been on a Nitropaste. Therefore Imdur 50 mg days been added after discussion. Patient follows with Dr. Allen in the office. Discussion and discharge planning more than 35 minutes Past medical history to include: CAD with stent, DVT, hypertension, hyperlipidemia, ostomy arthritis, BPH, DVT 3, detached retina. Anxiety depression Social history: Patient smoked a pack a day for 15 years stopped in 2007. Alcohol occasionally. . 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 Physical examination: VITAL SIGNS: 97.8, 74,'s 14, 131/68, 99% room air GENERAL: BMI 41.8, , comfortable EYES: Pupils equal. Conjunctiva normal. HEENT: External appearance of nose and ears normal, oral cavity grossly normal. NECK: JVD not raised; masses not palpable. HEART: First and second heart sounds are normal; no edema. LUNGS: Respiratory rate normal; clear to auscultation. ABDOMEN: Soft, nontender, liver spleen not palpable, no masses palpable. PSYCH: Alert and oriented x3; mood and affect normal. MUSCULOSKELETAL:No Clubbing/cyanosis;muscles-grossly intact. UA INVESTIGATIONS, reviewed in the clinical context: December 08: Creatinine 0.69 Nuclear stress tests: Showing some reversibility at the apex. White count 13.4 hemoglobin 15.3 platelets 237 sodium 132 potassium 4.3 BUN creatinine 0.8 Troponin I less than 0.0123 EKG tracing personally reviewed by me-normal sinus rhythm Chest x-ray film personally reviewed by me-unremarkable Assessment and plan: - unstable angina patient known CAD. Nuclear stress test showing some reversibility at the apex. On a catheterization: Patient stent in proximal LAD. Ramus intermedius underwent successful PCI. Severe disease involving distal left circumflex conformed by ifr. -CAD with a prior history of stent Lipitor, Toprol-XL sister -Essential hypertension Zestril, Toprol-XL, Cardizem -BPH Flomax, Cardura -Morbid obesity BMI 41.8 Weight loss measures -Anxiety not otherwise specified Xanax when necessary- Disposition: Home Plan - Discharge Summary Discharge Rx Participant: No New Discharge Prescriptions: New Isosorbide Mononitrate ER [Imdur] 15 mg PO DAILY #30 tab Atorvastatin Calcium [Lipitor] 40 mg PO HS #30 tab Clopidogrel [Plavix] 75 mg PO DAILY #30 tab Continue Aspirin [Adult Low Dose Aspirin EC] 81 mg PO DAILY Ascorbic Acid [Vitamin C] 500 mg PO DAILY Glucosam/Vel-Msm1/C/Abdullahi/Bosw [Zwyjlrsvmux-Otmligyjgvh-YWS Tb] 1 tab PO BID Brimonidine Tartrate/Timolol [Combigan 0.2%-0.5% Eye Drops] 1 drop BOTH EYES BID HYDROcodone/APAP 10-325MG [[place] 10-325] 1 tab PO Q6H PRN PRN Reason: Pain Diltiazem Oral [Cardizem*] 30 mg PO TID 30 Days #90 tab lisinopriL [Zestril] 5 mg PO DAILY 30 Days #30 tab Vitamin B Complex 1 cap PO DAILY Calcium/Magnesium/Vit D3/[place] [Calcium-Mag Oxide-Vit D3 Sftgl] 1 cap PO DAILY Apixaban [Eliquis] 5 mg PO BID Doxazosin [Cardura] 1 mg PO DAILY Multivitamins, Thera [Multivitamin (formulary)] 1 tab PO DAILY Nitroglycerin Sl Tabs [Nitrostat] 0.4 mg SUBLINGUAL Q5M PRN PRN Reason: Chest Pain ALPRAZolam [Xanax] 0.5 mg PO TID PRN PRN Reason: Anxiety Metoprolol Succinate (ER) [Toprol XL] 25 mg PO BID Tamsulosin [Flomax] 0.4 mg PO AC-BRKFST Furosemide [Lasix] 20 mg PO DAILY Ciprofloxacin HCl [Cipro] 500 mg PO BID Discontinued Atorvastatin [Lipitor] 20 mg PO HS No Action Turmeric Root Extract [Turmeric Curcumin] 500 mg PO BID Discharge Medication List Ascorbic Acid [Vitamin C] 500 mg PO DAILY 10/08/18 [History] Aspirin [Adult Low Dose Aspirin EC] 81 mg PO DAILY 10/08/18 [History] Brimonidine Tartrate/Timolol [Combigan 0.2%-0.5% Eye Drops] 1 drop BOTH EYES BID 10/08/18 [History] Glucosam/Vel-Msm1/C/Abdullahi/Bosw [Ktbhwjomeey-Ffnkcaoudks-OEL Tb] 1 tab PO BID 10/08/18 [History] Doxazosin [Cardura] 1 mg PO DAILY 05/15/21 [History] HYDROcodone/APAP 10-325MG [[place] 10-325] 1 tab PO Q6H PRN 06/10/21 [History] Diltiazem Oral [Cardizem*] 30 mg PO TID 30 Days #90 tab 06/14/21 [Rx] lisinopriL [Zestril] 5 mg PO DAILY 30 Days #30 tab 06/14/21 [Rx] ALPRAZolam [Xanax] 0.5 mg PO TID PRN 12/05/22 [History] Apixaban [Eliquis] 5 mg PO BID 12/05/22 [History] Calcium/Magnesium/Vit D3/[place] [Calcium-Mag Oxide-Vit D3 Sftgl] 1 cap PO DAILY 12/05/22 [History] Ciprofloxacin HCl [Cipro] 500 mg PO BID 12/05/22 [History] Furosemide [Lasix] 20 mg PO DAILY 12/05/22 [History] Metoprolol Succinate (ER) [Toprol XL] 25 mg PO BID 12/05/22 [History] Multivitamins, Thera [Multivitamin (formulary)] 1 tab PO DAILY 12/05/22 [History] Nitroglycerin Sl Tabs [Nitrostat] 0.4 mg SUBLINGUAL Q5M PRN 12/05/22 [History] Tamsulosin [Flomax] 0.4 mg PO AC-BRKFST 12/05/22 [History] Turmeric Root Extract [Turmeric Curcumin] 500 mg PO BID 12/05/22 [History] Vitamin B Complex 1 cap PO DAILY 12/05/22 [History] Atorvastatin Calcium [Lipitor] 40 mg PO HS #30 tab 12/08/22 [Rx] Clopidogrel [Plavix] 75 mg PO DAILY #30 tab 12/08/22 [Rx] Isosorbide Mononitrate ER [Imdur] 15 mg PO DAILY #30 tab 12/08/22 [Rx] Follow up Appointment(s)/Referral(s): Juve Silva MD [STAFF PHYSICIAN] - 12/13/22 4:30 pm (Follow up in the office for a Site Check with Dr. Silva as scheduled for you) Chilo Jacobo DO [Primary Care Provider] - 1-2 days Patient Instructions/Handouts: After Radial Heart Catheterization (GEN) Activity/Diet/Wound Care/Special Instructions: See Activity Restriction Instructions Discharge Disposition: HOME SELF-CARE
[2022-12-08] MEDS ORDERED: APIXABAN 2.5 MG TABLET PO SCH (21:00)
== END 2022-12-08 12:03 | disposition home or self-care (01) ==
LOC: EC 13:17 → 6NMEDSUR 16:30
PROVIDERS: ADMIT Hospitalist; ATTEND Hospitalist
DX: I25.110 Atherosclerotic heart disease of native coronary artery with unstable angina pectoris (principal); I10 Essential (primary) hypertension; I08.3 Combined rheumatic disorders of mitral, aortic and tricuspid valves; I48.0 Paroxysmal atrial fibrillation; R60.0 Localized edema; Z95.5 Presence of coronary angioplasty implant and graft; E78.5 Hyperlipidemia, unspecified; M19.90 Unspecified osteoarthritis, unspecified site; N40.0 Benign prostatic hyperplasia without lower urinary tract symptoms; H40.9 Unspecified glaucoma; Z86.718 Personal history of other venous thrombosis and embolism; I25.2 Old myocardial infarction; Z85.828 Personal history of other malignant neoplasm of skin; Z86.010 Personal history of colon polyps; Z95.828 Presence of other vascular implants and grafts; Z96.651 Presence of right artificial knee joint; F41.9 Anxiety disorder, unspecified; F32.A Depression, unspecified; Z87.891 Personal history of nicotine dependence; E66.01 Morbid (severe) obesity due to excess calories; Z68.41 Body mass index [BMI] 40.0-44.9, adult; Z98.890 Other specified postprocedural states; Z79.01 Long term (current) use of anticoagulants; Z79.82 Long term (current) use of aspirin; Z79.899 Other long term (current) drug therapy
CPT/HCPCS: 99285; 36415; 94760 ×3; 93005 ×2; 93017; 92978; 93458; 93799; 80061; 80053; 85652; 82565; 83735; 84484; 85025; 85610; 85730; 86140; 71046; 78452; G0378 ×4; C9600; C1887; C1769 ×3; C1894; C1725 ×2; C1753; C1874; A9500; J2250; J2001; J1644; J2785; J1170; Q9967 ×2

== ENCOUNTER → 2023-09-12 | Outpatient (CLI) | payer MEDICARE ==
[2023-09-12 18:48] LABS: Blood Urea Nitrogen 14.1 mg/dL (9.0-27.0); Carbon Dioxide 26.2 mmol/L (21.6-31.8); Chloride 103 mmol/L (96-109); Magnesium 2.1 mg/dL (1.5-2.4); Potassium 5.3 mmol/L (3.5-5.5); Sodium 139 mmol/L (135-145)
== END | disposition home or self-care (01) ==
LOC: LABPAT 12:28
PROVIDERS: ATTEND Internal Medicine Interventional Cardiology
DX: Z01.812 Encounter for preprocedural laboratory examination (principal); I25.10 Atherosclerotic heart disease of native coronary artery without angina pectoris; R07.9 Chest pain, unspecified
CPT/HCPCS: 36415; 80051; 82565; 83735; 84520

== ENCOUNTER 2023-09-17 10:28 | Day surgery (SDC) | payer MEDICARE ==
[~2023-09-17 10:28] MED LIST changes: -ACETAMINOPHEN TAB 500 MG TAB PO PRN; +ALPRAZolam 0.25 MG TAB PO PRN; +ALPRAZolam 0.5 MG TAB PO PRN; -DEXAMETHASONE SOD PHOSPHATE 4 MG/ML 1 ML VIAL IV ONE; -GABAPENTIN 300 MG CAP PO PRN; +HEPARIN SODIUM,PORCINE (1 ML) 2,500 UNIT in SODIUM CHLORIDE 0.9% 250 ML IRRIGATION PRN; +HEPARIN SODIUM,PORCINE 10,000 UNIT in SODIUM CHLORIDE 0.9% 1,000 ML IRRIGATION PRN; -LIDOCAINE 1% (10MG/ML) FOR IV START INTRADERMA PRN; -MIDAZOLAM 2 MG/2 ML VIAL IV PRN; +NITROGLYCERIN SL TABS 0.4 MG TAB SUBLINGUAL PRN; -ONDANSETRON 4 MG/2 ML VIAL IVP ONE; -TRANEXAMIC ACID 1,000 MG in SODIUM CHLORIDE 0.9% 100 ML IVPB PRN; -ceFAZolin 3 GM in SODIUM CHLORIDE 0.9% 100 ML IVPB PRN
[2023-09-17] MEDS: SODIUM CHLORIDE 0.9% 1,000 ML IV ONE (10:37)
[2023-09-17] MEDS: ASPIRIN 325 MG TAB PO ONE (10:55)
[2023-09-17] MEDS: SODIUM CHLORIDE 0.9% 1,000 ML in EMPTY BAG 1 BAG IV SCH (10:55)
[2023-09-17 11:16] LABS: Basophils % (A) 0 %; Eosinophils # (A) 0.1 k/uL (0-0.7); Eosinophils % (A) 1 %; HCT 41.7 % (39.0-53.0); HGB 13.8 gm/dL (13.0-17.5); Lymphocytes % (A) 21 %; MCH 31.6 pg (25.0-35.0); MCV 95.8 fL (80.0-100.0); Mean Platelet Volume 7.1; Monocytes # (A) 0.7 k/uL (0-1.0); Monocytes % (A) 7 %; Neutrophils # (A) 6.6 k/uL (1.3-7.7); Neutrophils % (A) 69 %; Platelet Count 207 k/uL (150-450); RBC 4.36 m/uL (4.30-5.90); RDW 14.1 % (11.5-15.5); WBC 9.6 k/uL (3.8-10.6)
[2023-09-17] MEDS ORDERED: VERAPAMIL 2.5 MG/ML 2 ML AMP ONE (12:43)
[2023-09-17] MEDS ORDERED: LIDOCAINE 1% INJ 10MG/ML (20 ML MDV) ONE (12:44)
[2023-09-17] MEDS ORDERED: HEPARIN SODIUM 1,000 UN/ML (10ML VL) ONE (12:58)
[2023-09-17] MEDS: LIDOCAINE 1% INJ 10MG/ML (20 ML MDV) SQ ONE (13:10)
[2023-09-17] MEDS: MIDAZOLAM 2 MG/2 ML VIAL IVP ONE (13:12)
[2023-09-17] MEDS: HEPARIN SODIUM 1,000 UN/ML (10ML VL) IVP ONE (13:22)
[2023-09-17] MEDS: HYDROmorphone 0.5 MG/0.5 ML SYRINGE IVP ONE (13:39)
[2023-09-17] MEDS: IOPAMIDOL-370 100ML BTL INJ ONE ×2 (13:40→13:50)
[2023-09-17] MEDS: NITROGLYCERIN 1000MCG/10ML SYRINGE INTRACORON ONE (13:42)
[2023-09-17] MEDS ORDERED: CLOPIDOGREL 75 MG TAB ONE (13:49)
[2023-09-17] MEDS: CLOPIDOGREL 75 MG TAB PO ONE (13:49)
[2023-09-17] MEDS ORDERED: ZOLPIDEM 5 MG TAB PO PRN (14:05)
[2023-09-17] MEDS ORDERED: MAG HYDROX/AL HYDROX/SIMETH 30 ML CUP PO PRN (14:05)
[2023-09-17] MEDS ORDERED: ATROPINE SULFATE 0.1 MG/ML 10ML SYRINGE IV PRN (14:05)
[2023-09-17] MEDS ORDERED: NITROGLYCERIN SL TABS 0.4 MG TAB SUBLINGUAL PRN (14:05)
[2023-09-17] MEDS ORDERED: RX INFO: IV CONTRAST WAS GIVEN 1 EACH MISC MISCELLANE PRN (14:05)
[2023-09-17] MEDS: DILTIAZEM ORAL 30 MG TAB PO SCH (17:54)
--- NOTE | 2023-09-17 19:32 | P.PCN ---
Date of Procedure: 09/17/23 Operative Findings: CARDIAC CATHETERIZATION AND PERCUTANEOUS CORONARY INTERVENTION PERFORMING PHYSICIAN: Juve Silva MD, [facility] PROCEDURE PERFORMED: 1. Selective right and left coronary angiogram 2. Left heart catheterization 3. Successful stenting of the distalLCx coronary artery using 4/0 x 18 mm Xience FOUZIA with an excellent angiographic results with adjunctive use of IVUS 4. Ultrasound-guided access of the right common femoral artery and selective right common femoral artery angiogram INDICATION: The patient is a pleasant 78-year-old gentleman with a known a coronary artery disease and was seen in the office recently for chest discomfort and shortness of breath with exertion concerning for angina. In the light of that the heart catheterization was advised COMPLICATION: None APPROACH: Right common femoral artery LEVEL OF SEDATION: Moderate with the sedation time off 48 minutes PROCEDURE DESCRIPTION: After obtaining informed consent the patient was brought to the cardiac construction craft laborer. The patient does not have any right radial pulse. The right common femoral artery was cannulated using micropuncture technique under ultrasound guidance and the micropuncture wire passed easily then I placed a 6 Congolese 11 cm sheath at the right common femoral artery. Selective right and left coronary angiogram performed using JR4 NPL 4.5 catheters. Left heart catheterization was performed using 6 Congolese pigtail catheter. After that I did intervene on the left circumflex coronary artery. Anticoagulation was initiated using heparin with continuous ACT monitoring. The left main was engaged using JL 4.5 guiding catheter. The PDA branch of the left circumflex was wired and PLV branch also 1 wire. Intravascular ultrasound performed and showed a diameter of the with PDA about 3.5 mm and for the distal left circumflex about 4.5 mm. That point I did the predilatation using 3.5 mm balloon before I deployed 4.0 x 18 mm stent were the stent was positioned under fluoroscopy guidance and deployed under fluoroscopy guidance. The proximal and midportions of the stent dilated using 4.5 mm noncompliant balloon with final intravascular ultrasound imaging. Excellent results with good but dependent good expansion and also the angiogram showed good angiographic results. The procedure was completed was no complication SELECTIVE CORONARY ANGIOGRAM: The right coronary artery: Large caliber vessel and a dominant vessel. The RCA has mild to moderate disease only. Left main: Short was mild disease only. Has mild disease only. The left circumflex: Large-caliber vessel and codominant vessel. The LCx and critical disease distally. The disease was documented to be flow limiting by Doppler wire in the past The ramus intermedius: The stent in the ramus intermedius is patent The left anterior descending artery: The proximal LAD is a stented and the stent appeared to be patent. The mid and distal LAD appeared to have mild disease only. The LAD gives rise into a diagonal branch which appeared to be normal HEMODYNAMICS: The LVEDP was 12 mmHg was no significant gradient across aortic valve CONCLUSION: Patent stent in the ramus intermedius Severe disease involving the distal left circumflex. I performed successful stenting of the left circumflex POSTPROCEDURE MANAGEMENT: 1. Dual antiplatelet therapy using aspirin and Plavix for 6 month 2. Aggressive cholesterol control and risk factors modification
[2023-09-17] MEDS: ATORVASTATIN 40 MG TAB PO SCH (20:11)
[2023-09-17] MEDS: METOPROLOL SUCCINATE (ER) 25 MG TAB.ER.24H PO SCH (20:11)
[2023-09-17] MEDS: HYDROcodone/APAP 10-325MG 1 EACH TAB PO PRN (20:18)
[2023-09-17] MEDS ORDERED: NON FORMULARY DRUG (Turmeric Root Extract [Turmeric Curcumin] 500 MG Capsule) PO SCH (21:00)
[2023-09-17] MEDS ORDERED: NON FORMULARY DRUG (Glucosam/Chon-Msm1/C/Mang/Bosw [Glucosamine-Chondroitin-Msm Tb] 1 EACH PO SCH (21:00)
[2023-09-18] MEDS: TAMSULOSIN 0.4 MG CAP.ER.24H PO SCH (06:14)
[2023-09-18 07:20] LABS: Basophils # (A) 0.1 k/uL (0-0.2); Basophils % (A) 1 %; Eosinophils # (A) 0.1 k/uL (0-0.7); Eosinophils % (A) 1 %; HGB 13.5 gm/dL (13.0-17.5); Lymphocytes # (A) 1.8 k/uL (1.0-4.8); Lymphocytes % (A) 22 %; MCH 32.8 pg (25.0-35.0); MCHC 33.8 g/dL (31.0-37.0); MCV 96.9 fL (80.0-100.0); Mean Platelet Volume 7.2; Monocytes # (A) 0.6 k/uL (0-1.0); Monocytes % (A) 8 %; Neutrophils # (A) 5.5 k/uL (1.3-7.7); Neutrophils % (A) 68 %; Platelet Count 178 k/uL (150-450); RBC 4.13 m/uL (4.30-5.90); RDW 14.1 % (11.5-15.5); WBC 8.1 k/uL (3.8-10.6)
[2023-09-18 07:48] LABS: African American GFR (CKD) >90 (>60 ml/min/1.73 sqM); Anion Gap 4 mmol/L; Blood Urea Nitrogen 13 mg/dL (9-20); Calcium 8.8 mg/dL (8.4-10.2); Carbon Dioxide 24 mmol/L (22-30); Chloride 109 mmol/L (98-107); Glucose 85 mg/dL (74-99); Non-African American GFR(CKD) >90 (>60 ml/min/1.73 sqM); Potassium 4.1 mmol/L (3.5-5.1); Sodium 137 mmol/L (137-145)
[2023-09-18] MEDS: ASCORBIC ACID 500 MG TAB PO SCH (08:22)
[2023-09-18] MEDS: ASPIRIN 81 MG PO SCH (08:22)
[2023-09-18] MEDS: CALCIUM CARB-VIT D 500 MG-5 MCG TAB PO SCH (08:22)
[2023-09-18] MEDS: FUROSEMIDE 20 MG TAB PO SCH (08:22)
[2023-09-18] MEDS: MULTIVITAMINS, THERA 1 EACH TAB PO SCH (08:22)
[2023-09-18] MEDS: lisinopriL 5 MG TAB PO SCH (08:23)
[2023-09-18 08:25] VITALS: BP 117/65; PULSE 55; RESP 16; TEMP 97.9
[2023-09-18] MEDS: CLOPIDOGREL 75 MG TAB PO SCH (08:29)
[2023-09-18] MEDS: BRIMONIDINE TARTRATE 0.2% DROPS 5 ML BTL BOTH EYES SCH (08:29)
[2023-09-18] MEDS: TIMOLOL 0.5% OPHTH DROPS 5 ML BTL BOTH EYES SCH (08:31)
[2023-09-18] MEDS ORDERED: NON FORMULARY DRUG (Vitamin B Complex [Vitamin B Complex] 1 EACH Capsule) PO SCH (09:00)
[2023-09-18] MEDS: DOXAZOSIN 1 MG TAB PO SCH (10:03)
[2023-09-18] MEDS: ISOSORBIDE MONONITRATE ER 15 MG TAB PO SCH (10:03)
--- NOTE | 2023-09-18 10:10 | P.DS ---
Providers Attending physician: Juve Silva Consults: 09/17/23 14:06 Consult Physician Routine Consulting Provider: [facility] Consult Reason/Comments: Post Interventional patient Do you want consulting provider notified?: Already Contacted Primary care physician: Chilo Jacobo Hospital Course: This is a 78-year-old male who underwent cardiac catheterization yesterday with stenting of the distal left circumflex with Dr. Silva. Patient examined this morning the bedside. Patient denies any chest pain or pressure. He denies any shortness of breath. Right femoral cath site is soft with no hematoma noted. Pulses palpable. Patient's vital signs are stable. Patient was deemed stable for discharge home today from a cardiac standpoint. Patient to be discharged home on triple therapy with aspirin, Plavix, and Eliquis. Patient will discontinue aspirin after 1 week and continue on Eliquis and Plavix. Please see EMR for further hospital course details. Discharge diagnosis 1. Coronary artery disease, status post stenting of distal left circumflex Nurse practitioner note has been reviewed by physician. Signing provider agrees with the documented findings, assessment, and plan of care documented by [employer] as a scribe. Plan - Discharge Summary Discharge Rx Participant: Yes New Discharge Prescriptions: New Aspirin 81 mg PO DAILY #7 tab Continue Ascorbic Acid [Vitamin C] 500 mg PO DAILY Glucosam/Vel-Msm1/C/Abdullahi/Bosw [Kvyklonoyjl-Uwhmkbrefwl-EMJ Tb] 1 tab PO BID Brimonidine Tartrate/Timolol [Combigan 0.2%-0.5% Eye Drops] 1 drop BOTH EYES DAILY HYDROcodone/APAP 10-325MG [[place] 10-325] 1 tab PO Q6H PRN PRN Reason: Pain Diltiazem Oral [Cardizem*] 30 mg PO TID 30 Days #90 tab lisinopriL [Zestril] 5 mg PO DAILY 30 Days #30 tab Vitamin B Complex 1 cap PO DAILY Calcium/Magnesium/Vit D3/Dorado [Calcium-Mag Oxide-Vit D3 Sftgl] 1 cap PO DAILY Apixaban [Eliquis] 5 mg PO BID Isosorbide Mononitrate ER [Imdur] 15 mg PO DAILY #30 tab Atorvastatin Calcium [Lipitor] 40 mg PO HS #30 tab Clopidogrel [Plavix] 75 mg PO DAILY #30 tab Doxazosin [Cardura] 1 mg PO DAILY Multivitamins, Thera [Multivitamin (formulary)] 1 tab PO DAILY Nitroglycerin Sl Tabs [Nitrostat] 0.4 mg SUBLINGUAL Q5M PRN PRN Reason: Chest Pain ALPRAZolam [Xanax] 0.5 mg PO TID PRN PRN Reason: Anxiety Metoprolol Succinate (ER) [Toprol XL] 25 mg PO BID Tamsulosin [Flomax] 0.4 mg PO AC-BRKFST Furosemide [Lasix] 20 mg PO DAILY Ciprofloxacin HCl [Cipro] 500 mg PO BID Turmeric Root Extract [Turmeric Curcumin] 500 mg PO BID Timolol 0.5% Ophth Soln [Timoptic 0.5% Ophth Soln] 2 drops BOTH EYES DAILY Discharge Medication List Ascorbic Acid [Vitamin C] 500 mg PO DAILY 10/08/18 [History] Brimonidine Tartrate/Timolol [Combigan 0.2%-0.5% Eye Drops] 1 drop BOTH EYES DAILY 10/08/18 [History] Glucosam/Vel-Msm1/C/Abdullahi/Bosw [Ripyruoulge-Aijzkwrvacw-IUZ Tb] 1 tab PO BID 10/08/18 [History] Doxazosin [Cardura] 1 mg PO DAILY 05/15/21 [History] HYDROcodone/APAP 10-325MG [[place] 10-325] 1 tab PO Q6H PRN 06/10/21 [History] Diltiazem Oral [Cardizem*] 30 mg PO TID 30 Days #90 tab 06/14/21 [Rx] lisinopriL [Zestril] 5 mg PO DAILY 30 Days #30 tab 06/14/21 [Rx] ALPRAZolam [Xanax] 0.5 mg PO TID PRN 12/05/22 [History] Apixaban [Eliquis] 5 mg PO BID 12/05/22 [History] Calcium/Magnesium/Vit D3/[place] [Calcium-Mag Oxide-Vit D3 Sftgl] 1 cap PO DAILY 12/05/22 [History] Ciprofloxacin HCl [Cipro] 500 mg PO BID 12/05/22 [History] Furosemide [Lasix] 20 mg PO DAILY 12/05/22 [History] Metoprolol Succinate (ER) [Toprol XL] 25 mg PO BID 12/05/22 [History] Multivitamins, Thera [Multivitamin (formulary)] 1 tab PO DAILY 12/05/22 [History] Nitroglycerin Sl Tabs [Nitrostat] 0.4 mg SUBLINGUAL Q5M PRN 12/05/22 [History] Tamsulosin [Flomax] 0.4 mg PO AC-BRKFST 12/05/22 [History] Turmeric Root Extract [Turmeric Curcumin] 500 mg PO BID 12/05/22 [History] Vitamin B Complex 1 cap PO DAILY 12/05/22 [History] Atorvastatin Calcium [Lipitor] 40 mg PO HS #30 tab 12/08/22 [Rx] Clopidogrel [Plavix] 75 mg PO DAILY #30 tab 12/08/22 [Rx] Isosorbide Mononitrate ER [Imdur] 15 mg PO DAILY #30 tab 12/08/22 [Rx] Timolol 0.5% Ophth Soln [Timoptic 0.5% Ophth Soln] 2 drops BOTH EYES DAILY 09/13/23 [History] Aspirin 81 mg PO DAILY #7 tab 09/18/23 [Rx] Follow up Appointment(s)/Referral(s): Juve Silva MD [STAFF PHYSICIAN] - 1 Week (THE OFFICE WILL CALL YOU WITH AN APPOINTMENT DATE AND TIME) Patient Instructions/Handouts: Moderate Sedation (DC), After Radial Heart Catheterization (GEN) Activity/Diet/Wound Care/Special Instructions: *NO LIFTING, PUSHING, OR PULLING ANYTHING OVER 5 POUNDS FOR 5 DAYS *NO DRIVING FOR 3 DAYS *YOU CAN REMOVE YOUR DRESSING TOMORROW BUT DO NOT SUBMERSE YOUR PUNCTURE SITE IN WATER FOR A FEW DAYS TO PREVENT INFECTION - SO NO TUB BATHS, POOLS, HOT TUBS, DISHES...ETC *ANY SIGNS OF BLEEDING (HARDNESS, SWELLING, OR EXCESSIVE BRUISING) HOLD DIRECT PRESSURE ON YOUR PUNCTURE SITE AND COME TO THE NEAREST EMERGENCY ROOM TO GET YOUR PUNCTURE SITE LOOKED AT - DO NOT DRIVE YOURSELF! EITHER CALL EMS OR HAVE SOMEONE DRIVE YOU!
[2023-09-18] MEDS ORDERED: APIXABAN 5 MG TAB PO SCH (21:00)
== END 2023-09-18 10:20 | disposition home or self-care (01) ==
LOC: CATHCVL 10:28 → 6NMEDSUR 13:50 → CATHCVL 09-18 10:20
PROVIDERS: ATTEND Internal Medicine Interventional Cardiology
DX: I25.10 Atherosclerotic heart disease of native coronary artery without angina pectoris (principal); I10 Essential (primary) hypertension; E78.5 Hyperlipidemia, unspecified; F17.210 Nicotine dependence, cigarettes, uncomplicated; Z95.5 Presence of coronary angioplasty implant and graft; Z79.01 Long term (current) use of anticoagulants; Z79.899 Other long term (current) drug therapy
CPT/HCPCS: 92978; 93458; 76937; 80048; 85025 ×2; C9600; C1887; C1769 ×3; C1894; C1753; C1874; C1725 ×2; J2250; J2001; J1644; J1170; Q9967; J2305